=== PATIENT | male | born 1945 | race Caucasian/White ===

== ENCOUNTER 2016-09-04 13:46 | Inpatient (IN) | payer MEDICARE, OTHER ==
[~2016-09-04] VITALS: Ht 185.4 cm; Wt 61.4 kg
[~2016-09-04 13:46] MED LIST: ALPR0.5T6 PO; ATOR40TA59 PO; BACL10TA PO; BUSP15TA PO; CARV12.5 PO; DILT120C97 PO; DOCU100C5 PO; DULO60CA6 PO; LACT20SO PO; MIRT30TA3 PO; ONDA-35 PO; OXYB5TAB7 PO; OXYC10TA32 PO; OXYC5CAP3 PO; POLY17PO5 PO; RANI150C PO; RIVA20TA2 PO; SCOP1PAT TP; THIA100T8 PO
--- NOTE | 2016-09-04 15:05 | RAD ---
Portable chest, 09/04/2016: History: Weakness Comparison is made to a study from 05/24/2016. The patient is rotated to the left. The heart size and pulmonary vascularity are within normal limits. There are mild streaky left basilar parenchymal opacities similar to those seen on the previous exam. The right lung is clear. There is no evidence of pleural fluid. IMPRESSION: Persistent streaky left basilar opacities compatible with chronic or recurrent pneumonitis versus scarring.
[2016-09-04 15:10] LABS: BASO % 0 % (0-3); EOS % 0 % (0-3); HEMOGLOBIN 13.6 g/dL (13.0-17.5); LYMPH # 0.8 x10^3/uL (1.0-4.8); LYMPH % 6 % (24-48); MEAN CORPUSCULAR HEMOGLOBIN 34 pg (25-35); MEAN CORPUSCULAR HGB CONC 33 g/dL (31-37); MEAN CORPUSCULAR VOLUME 101 fL (79-100); MONO % 8 % (0-9); NEUT % 86 % (31-73); PLATELET COUNT 231 x10^3/uL (140-400); RED BLOOD COUNT 4.07 x10^6/uL (4.30-5.70); RED CELL DISTRIBUTION WIDTH 13.7 % (11.5-14.5); WHITE BLOOD COUNT 12.8 x10^3/uL (4.0-11.0)
[2016-09-04 15:19] LABS: CALCIUM 9.3 mg/dL (8.5-10.1); CREATININE 0.8 mg/dL (0.7-1.3); GFR 96.1; POTASSIUM 4.6 mmol/L (3.5-5.1)
[2016-09-04 15:26] LABS: ALBUMIN/GLOBULIN RATIO 0.7 (1.0-1.7); TOTAL BILIRUBIN 0.5 mg/dL (0.2-1.0); TOTAL PROTEIN 7.6 g/dL (6.4-8.2)
--- NOTE | 2016-09-04 15:55 | EKG ---
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
[2016-09-04] MEDS ORDERED: IPRATRPIUM/ALBUTEROL 0.5/2.5MG 3 ML NEBU. NEB ONE (16:00)
[2016-09-04 16:54] LABS: OVALOCYTES MOD; PLT ESTIMATE ADEQUATE (ADEQUATE); SCHISTOCYTES OCC
[2016-09-04 17:12] LABS: BILIRUBIN,URINE NEGATIVE (NEG); GLUCOSE,URINE NEGATIVE (NEG); NITRITE,URINE NEGATIVE (NEG); PH,URINE 7.5; PROTEIN,URINE NEGATIVE (NEG-TRACE)
[2016-09-04 17:23] LABS: BACTERIA,URINE 0 /HPF (0-FEW); RBC,URINE 0 /HPF (0-2); SQUAMOUS EPITHELIAL CELL,UR OCC /LPF; WBC,URINE OCC /HPF (0-4)
[2016-09-04 17:40] LABS: OBC FLU VALID
[2016-09-04 18:15] VITALS: BP 122/79
[2016-09-04 19:00] VITALS: BP 128/83
[2016-09-04] MEDS ORDERED: THIA100T22 PO (21:00)
[2016-09-04] MEDS ORDERED: GUAI600T6 PO (21:00)
[2016-09-04] MEDS ORDERED: ACETAMINOPHEN 325 MG TABLET. PO PRN (21:00)
[2016-09-04] MEDS ORDERED: LACTULOSE 20 GM/30 ML SOLUTION. PO PRN (21:00)
[2016-09-04] MEDS ORDERED: METO5TAB55 PO (21:00)
[2016-09-04] MEDS ORDERED: ALPRAZOLAM 0.5 MG TABLET PO PRN (21:00)
[2016-09-04] MEDS ORDERED: DOCUSATE SODIUM 100 MG CAPSULE PO PRN (21:00)
[2016-09-04] MEDS ORDERED: POLYETHYLENE GLYCOL 3350 17 GM PACKET. PO PRN (21:00)
[2016-09-04] MEDS ORDERED: IPRA3AMP NEB (21:00)
[2016-09-04] MEDS ORDERED: ACET325T9 PO (21:00)
[2016-09-04] MEDS ORDERED: FAMO20TA5 PO (21:00)
[2016-09-04] MEDS ORDERED: ANTI-COAG MONITOR BY PHARMACY. MC PRN (21:15)
[2016-09-04] MEDS ORDERED: OXYCODONE IR 5 MG TABLET. PO PRN (21:30)
[2016-09-04] MEDS ORDERED: FAMOTIDINE 20 MG TABLET. PO SCH (21:30)
[2016-09-04] MEDS ORDERED: ONDANSETRON ODT 4 MG TAB.RAPDIS PO PRN (21:30)
[2016-09-04] MEDS ORDERED: ATORVASTATIN CALCIUM 40 MG TABLET. PO SCH (21:30)
[2016-09-04] MEDS: FAMOTIDINE 20 MG TABLET. PO SCH (21:33)
[2016-09-04] MEDS: busPIRone 10 MG TABLET. PO SCH (21:33)
[2016-09-04] MEDS: OXYBUTYNIN CHLORIDE 5 MG TABLET PO SCH (21:33)
[2016-09-04] MEDS: GUAIFENESIN ER 600 MG TABLET.ER PO SCH (21:33)
[2016-09-04] MEDS: BACLOFEN 10 MG TABLET PO SCH (21:33)
[2016-09-04] MEDS: IPRATRPIUM/ALBUTEROL 0.5/2.5MG 3 ML NEBU. NEB SCH (22:09)
[2016-09-04 23:00] VITALS: BP 103/62
--- NOTE | 2016-09-04 23:01 | ED.ADGEN ---
Past Medical History Past Medical History: A-Fib, Anemia, Anxiety, CHF, COPD, CVA, GERD, High Cholesterol, Hypertension Additional Past Medical Histor: dysphagia, BPH Past Surgical History: Hip Replacement, Knee Replacement Additional Past Surgical Histo: Peg tube, L hip, R knee, Alcohol Use: None Drug Use: None Adult General Chief Complaint Chief Complaint: WEAKNESS/GENERALIZED HPI HPI Patient is a 70 year old man, history of atrial fibrillation, CVA with residual left-sided deficits, COPD, CHF, who presents to the emergency department with complaint of cough and shortness of breath. Patient has been treated at the [facility] nursing facility for pneumonia, has received 5 days of oral antibiotics. Patient states that he is feeling fine at this time, was feeling more short of breath previously. States he has a cough is productive of mucus, is noted to be hypoxic in the emergency department, oxygen saturation in the upper 80s, in the mid 90s on 2 L nasal cannula. Patient does not use oxygen at baseline. He denies any fevers or chills, any sick contacts or exposures, any chest pain, any weakness numbness or tingling, any injuries or other new complaints. Review of Systems Review of Systems Constitutional: Denies fever or chills. [] Eyes: Denies change in visual acuity. [] HENT: Denies nasal congestion or sore throat. [] Shortness of breath. Respiratory: Cough, productive of sputum. [] Cardiovascular: Denies chest pain or edema. [] GI: Denies abdominal pain, nausea, vomiting, bloody stools or diarrhea. [] : Denies dysuria. [] Musculoskeletal: Denies back pain or joint pain. [] Integument: Denies rash. [] Neurologic: Denies headache, focal weakness or sensory changes. [] Endocrine: Denies polyuria or polydipsia. [] Lymphatic: Denies swollen glands. [] Psychiatric: Denies depression or anxiety. [] Current Medications Current Medications Current Medications Medications (Trade) Dose Ordered Sig/Kayden Start Time Stop Time Status Last Admin Dose Admin Albuterol/ Ipratropium (Duoneb) 3 ml 1X ONCE 09/04/16 16:00 09/04/16 16:01 DC 09/04/16 16:22 3 ML Allergies Allergies Allergies Coded Allergies Type Severity Reaction Last Updated Verified morphine Allergy Intermediate 05/12/16 Yes I S O L A T I O N *CONTACT* Allergy Unknown 05/14/16 Yes Physical Exam Physical Exam Constitutional: Well developed, well nourished, no acute distress, non-toxic appearance. [] HENT: Normocephalic, atraumatic, bilateral external ears normal, oropharynx moist, no oral exudates, nose normal. [] Eyes: PERRLA, EOMI, conjunctiva normal, no discharge. [] Neck: Normal range of motion, no tenderness, supple, no stridor. [] Cardiovascular:Heart rate regular rhythm, no murmur [] Lungs & Thorax: Bilateral breath sounds clear to auscultation [] Abdomen: Bowel sounds normal, soft, no tenderness, no masses, no pulsatile masses. [] Skin: Warm, dry, no erythema, no rash. [] Back: No tenderness, no CVA tenderness. [] Extremities: No tenderness, no cyanosis, no clubbing, ROM intact, no edema. [] Neurologic: Alert and oriented X 3, normal motor function, normal sensory function, no focal deficits noted. [] Psychologic: Affect normal, judgement normal, mood normal. [] Current Patient Data Vital Signs Vital Signs Date Time Temp Pulse Resp B/P Pulse Ox O2 Delivery O2 Flow Rate FiO2 09/04/16 16:23 Nasal Cannula 2.0 09/04/16 16:19 60 135/74 97 09/04/16 14:17 98.6 12 98.6 Lab Values Laboratory Tests Test 09/04/16 14:10 White Blood Count 12.8x10^3/uL (4.0-11.0) H Red Blood Count 4.07x10^6/uL (4.30-5.70) L Hemoglobin 13.6g/dL (13.0-17.5) Hematocrit 41.0% (39.0-53.0) Mean Corpuscular Volume 101fL (79-100) H Mean Corpuscular Hemoglobin 34pg (25-35) Mean Corpuscular Hemoglobin Concent 33g/dL (31-37) Red Cell Distribution Width 13.7% (11.5-14.5) Platelet Count 231x10^3/uL (140-400) Neutrophils (%) (Auto) 86% (31-73) H Lymphocytes (%) (Auto) 6% (24-48) L Monocytes (%) (Auto) 8% (0-9) Eosinophils (%) (Auto) 0% (0-3) Basophils (%) (Auto) 0% (0-3) Neutrophils # (Auto) 10.9x10^3uL (1.8-7.7) H Lymphocytes # (Auto) 0.8x10^3/uL (1.0-4.8) L Monocytes # (Auto) 1.0x10^3/uL (0.0-1.1) Eosinophils # (Auto) 0.0x10^3/uL (0.0-0.7) Basophils # (Auto) 0.0x10^3/uL (0.0-0.2) Segmented Neutrophils % 89% (35-66) H Lymphocytes % 5% (24-48) L Atypical Lymphocytes % (Manual) 1% (0-0) H Monocytes % 5% (0-10) Platelet Estimate Adequate (ADEQUATE) Ovalocytes Mod Schistocytes Occ Sodium Level 143mmol/L (136-145) Potassium Level 4.6mmol/L (3.5-5.1) Chloride Level 103mmol/L (98-107) Carbon Dioxide Level 32mmol/L (21-32) Anion Gap 8 (6-14) Blood Urea Nitrogen 23mg/dL (8-26) Creatinine 0.8mg/dL (0.7-1.3) Estimated GFR (Cockcroft-Gault) 96.1 BUN/Creatinine Ratio 29 (6-20) H Glucose Level 93mg/dL (70-99) Lactic Acid Level 1.4mmol/L (0.4-2.0) Calcium Level 9.3mg/dL (8.5-10.1) Total Bilirubin 0.5mg/dL (0.2-1.0) Aspartate Amino Transferase (AST) 70U/L (15-37) H Alanine Aminotransferase (ALT) 97U/L (16-63) H Alkaline Phosphatase 71U/L (46-116) Troponin I Quantitative < 0.017ng/mL (0.000-0.055) RW-Sts-H-Type Natriuretic Peptide 226pg/mL (0-124) H Total Protein 7.6g/dL (6.4-8.2) Albumin 3.0g/dL (3.4-5.0) L Albumin/Globulin Ratio 0.7 (1.0-1.7) L Laboratory Tests 09/04/16 14:10 Laboratory Tests 09/04/16 14:10 EKG EKG EC: Sinus rhythm, heart rate 59 bpm, left axis deviation, QTC of 410, FL of 100, QRS of 86, no ST elevations or depressions, abnormal ECG as stated, does not meet STEMI criteria. As interpreted by me. Radiology/Procedures Radiology/Procedures [] [facility] [address] [place] [address] IMAGING REPORT Signed PATIENT: OLI MICHAEL ACCOUNT: [id number] : 1945 LOCATION: ER AGE: 70 SEX: M EXAM STATUS: PRE ER ORD. PHYSICIAN: JUAN A PAULINO DO REASON: Weakness PROCEDURE: PORTABLE CHEST 1V Portable chest, 09/04/2016: History: Weakness Comparison is made to a study from 05/24/2016. The patient is rotated to the left. The heart size and pulmonary vascularity are within normal limits. There are mild streaky left basilar parenchymal opacities similar to those seen on the previous exam. The right lung is clear. There is no evidence of pleural fluid. IMPRESSION: Persistent streaky left basilar opacities compatible with chronic or recurrent pneumonitis versus scarring. DICTATED and SIGNED BY: CIARA LINARES MD DATE: 09/04/16 1500 CC: IONA GARCIA; JUAN A PAULINO DO ~ Course & Med Decision Making Course & Med Decision Making Pertinent Labs and Imaging studies reviewed. (See chart for details) Patient with hypoxia, cough, leukocytosis, noted to have infiltrates in the left lung base, will treat for healthcare acquired pneumonia, presumed failure of outpatient antibiotic coverage. Patient resting comfortably, on 2 L nasal cannula. Antibiotic initiated in the ED without issue. Flu swab was negative. Findings as above discussed with Dr. Dyer, on-call for the patient's primary care provider, patient accepted to his service as a full admission to the medical telemetry floor with plan as above, bridge orders entered as stated. Dragon Disclaimer Dragon Disclaimer This electronic medical record was generated, in whole or in part, using a voice recognition dictation system. Departure Impression: Primary Impression: HCAP (healthcare-associated pneumonia) Additional Impression: Cough Disposition: 09 ADMITTED INPATIENT Admitting Physician: Mary Alice Dyer Problem Qualifiers JUAN A PAULINO DO Sep 04, 2016 23:01
[2016-09-04] MEDS ORDERED: VANCOMYCIN 1.5 GM in IV NORMAL SALINE 500ML BAG 500 ML IV ONE (23:15)
[2016-09-04] MEDS ORDERED: ONDANSETRON PF 4 MG/2 ML VIAL. IV PRN (23:15)
[2016-09-04] MEDS: VANCOMYCIN PER PHARMACY MC PRN (23:21)
[2016-09-05] MEDS: PIPERACILLIN/TAZOBACTAM 4.5 GM in IV NORMAL SALINE 100ML 100 ML IV SCH ×4 (00:30→18:10)
--- NOTE | 2016-09-05 01:45 | ACF ---
Admission Forms Criteria PNEUMONIA, COMMUNITY ACQUIRED Clinical Indications for Admission to Inpatient Care ( Place 'X' for any and all applicable criteria): Admission is indicated for ANY ONE of the following (1)(2)(3): [ ]I. Hypoxemia indicated by ANY ONE of the following: [ ]a) Oxygen saturation less than 90% while breathing room air [ ]b) PO2 less than 60 mm Hg (8.0 kPa) while breathing room air [ ]c) Chronic lung disease with significant deterioration from baseline oxygenation [ ]II. Appropriate diagnostic testing and treatment unavailable in outpatient or recovery facility (eg,testing or infection control measures unavailable(10) [ ]III. Moderate-risk or high-risk category patients (Pneumonia Severity Index (PSI) class IV or V, or CURB-65 score of 3 or greater). [ ]IV. Outpatient treatment failure as indicated by ANY ONE of the following(9) : [ ]a) Failure to respond to antibiotic (eg, resistant organism) [ ]b) Clinically significant adverse effects from medication (eg, vomiting) [ ]c) Complications of pneumonia (eg, empyema, bacteremia) [ ]d) Significant worsening of comorbid cond necessitating inpatient care (eg, chronic heart failure) [X]V. Intermediate-risk category patients (eg, PSI class III or CURB-65 score 2) who do not improve with initial therapy and observation. [ ]. Immunocompromised patients (eg, AIDS, chronic steroid use) at moderate or high risk based on clinical evaluation. [ ]VII. Complicated pleural effusions (eg, exudative, loculated) [ ]VIII.Hemodynamic instability [ ] IX. Altered mental status that is severe or persistent. [ ]X. Dehydration that is severe or persistent. [ ]XI. Bacteremia [ ]XII. Respiratory finding (eg. tachypnea) that do not respond to outpatient or observation care treatment Extended stay beyond goal length of stay may be needed for (20) [ ]a) Unclear diagnosis [ ]b) Pleural disease [ ]c) Severe pneumonia or treatment failure (25 [ ]d) Respiratory failure (anticipate invasive or noninvasive ventilatory support) [ ]e) Abnormal serum electrolytes (serum Na concentration less than 135 mEq/L (mmol/L) (32)(33) [ ]f) Clinically significant comorbid illness (eg, heart failure, atrial fibrillation with rapid heart rate, alcohol withdrawal, renal insufficiency)(34)(35) [ ]g) Comorbid acute exacerbation of COPD(36) [ ]h) Concomitant diagnosis of malignancy that may be associated with malnutrition, immunologic impairment, or bronchial obstruction. [ ]i) Concomitant altered mental status [ ]j) Culture-identified Gram-negative or antibiotic-resistant organism (eg, Pseudomonas, methicillin-resistant Staphylococcus aureus)(30) [ ]k) Healthcare-associated pneumonia The original [facility] content created by [employer] [facility] [email or web address] has been revised. The portions of the content which have been revised are identified through the use of italic text or in bold, and [facility] has neither reviewed nor approved the modified material. All other unmodified content is copyright [facility]. Please see references footnoted in the original [facility] [email or web address] edition 2016 Admission Criteria Met?: Yes LUCERO HENDERSON Sep 05, 2016 01:45
[2016-09-05 02:38] VITALS: BP 120/62
[2016-09-05 06:51] LABS: BASO % 0 % (0-3); EOS % 0 % (0-3); HEMATOCRIT 43.3 % (39.0-53.0); HEMOGLOBIN 13.9 g/dL (13.0-17.5); LYMPH % 7 % (24-48); MEAN CORPUSCULAR HEMOGLOBIN 33 pg (25-35); MEAN CORPUSCULAR HGB CONC 32 g/dL (31-37); MEAN CORPUSCULAR VOLUME 102 fL (79-100); MONO % 7 % (0-9); NEUT % 85 % (31-73); PLATELET COUNT 167 x10^3/uL (140-400); RED BLOOD COUNT 4.24 x10^6/uL (4.30-5.70); RED CELL DISTRIBUTION WIDTH 14.1 % (11.5-14.5); WHITE BLOOD COUNT 13.5 x10^3/uL (4.0-11.0)
[2016-09-05 07:06] LABS: ALBUMIN/GLOBULIN RATIO 0.8 (1.0-1.7); CALCIUM 9.3 mg/dL (8.5-10.1); CREATININE 0.8 mg/dL (0.7-1.3); GFR 96.1; POTASSIUM 3.8 mmol/L (3.5-5.1); TOTAL BILIRUBIN 0.6 mg/dL (0.2-1.0); TOTAL PROTEIN 6.9 g/dL (6.4-8.2)
[2016-09-05] MEDS ORDERED: METOCLOPRAMIDE 5 MG TABLET PO SCH (07:30)
[2016-09-05] MEDS ORDERED: DEXTROSE 50% 25 GM / 50ML DISP.SYRIN. IV ONE ×2 (07:52→08:00)
[2016-09-05] MEDS ORDERED: CARVEDILOL 12.5 MG TABLET PO SCH (08:00)
[2016-09-05] MEDS ORDERED: IPRATRPIUM/ALBUTEROL 0.5/2.5MG 3 ML NEBU. NEB SCH (08:00)
[2016-09-05 08:36] VITALS: BP 95/60
[2016-09-05] MEDS: IPRATRPIUM/ALBUTEROL 0.5/2.5MG 3 ML NEBU. NEB SCH ×4 (08:49→19:34)
[2016-09-05] MEDS: BACLOFEN 10 MG TABLET PO SCH (08:55)
[2016-09-05] MEDS: OXYBUTYNIN CHLORIDE 5 MG TABLET PO SCH (08:56)
[2016-09-05] MEDS: DULOXETINE HCL 30 MG CAPSULE.DR. PO SCH (08:56)
[2016-09-05] MEDS: FAMOTIDINE 20 MG TABLET. PO SCH (08:56)
[2016-09-05] MEDS: busPIRone 10 MG TABLET. PO SCH (08:56)
[2016-09-05] MEDS: GUAIFENESIN ER 600 MG TABLET.ER PO SCH (08:56)
[2016-09-05] MEDS: methylPREDNISolone SOD SUCC PF 40 MG/ML VIAL. IV SCH ×2 (08:57→22:13)
[2016-09-05] MEDS: SCOPOLAMINE 1.5MG PATCH. TD SCH (08:57)
--- NOTE | 2016-09-05 08:59 | PDOC1 ---
HISTORY AND PHYSICAL Chief Complaint Chief Complaint This 70 year old male has been admitted with a chief complaint of shortness of breath and cough. He is a resident at [facility]. He received out patient treatment for pneumonia with Zjyotik, Lenardtin and levaquin. He presented to the ED with ongoing cough productive of mucus. He was hypoxic in the ED with RA sat upper 80s that improved with oxygen 2L to mid 90s. He denies fever or chills. His CXR revealed ongoing L basilar pneumonia. His WBC 12.8. He is admitted for further treatment HCFA pneumonia out patient treatment failure. 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 Medications Medications reviewed and reconciled Allergy Allergies Coded Allergies Type Severity Reaction Last Updated Verified morphine Allergy Intermediate 05/12/16 Yes I S O L A T I O N *CONTACT* Allergy Unknown 05/14/16 Yes Physical Exam Physical Exam General appearance - alert, chronically ill appearing, and in no distress Mental Status - alert, oriented to person, place, and time, affect appropriate to mood Head - normal Chest - clear to auscultation, no wheezes, rales or rhonchi, symmetric air entry Heart - S1 and S2 normal Abdomen - soft, nontender, nondistended, GT present. BS + Neurological - no acute focal neurological deficits noted, bilateral contractures upper extremities/hands and bilateral foot drop. Musculoskeletal - no muscular tenderness noted Extremities - no pedal edema Skin - warm and dry VTE Prophylaxis Ordered VTE Prophylaxis Devices: Yes VTE Pharmacological Prophylaxi: Yes (xarelto) Assessment Labs Laboratory Tests Test 09/04/16 14:10 09/04/16 17:00 09/05/16 06:15 09/05/16 07:58 White Blood Count 12.8x10^3/uL (4.0-11.0) 13.5x10^3/uL (4.0-11.0) Red Blood Count 4.07x10^6/uL (4.30-5.70) 4.24x10^6/uL (4.30-5.70) Hemoglobin 13.6g/dL (13.0-17.5) 13.9g/dL (13.0-17.5) Hematocrit 41.0% (39.0-53.0) 43.3% (39.0-53.0) Mean Corpuscular Volume 101fL (79-100) 102fL (79-100) Mean Corpuscular Hemoglobin 34pg (25-35) 33pg (25-35) Mean Corpuscular Hemoglobin Concent 33g/dL (31-37) 32g/dL (31-37) Red Cell Distribution Width 13.7% (11.5-14.5) 14.1% (11.5-14.5) Platelet Count 231x10^3/uL (140-400) 167x10^3/uL (140-400) Neutrophils (%) (Auto) 86% (31-73) 85% (31-73) Lymphocytes (%) (Auto) 6% (24-48) 7% (24-48) Monocytes (%) (Auto) 8% (0-9) 7% (0-9) Eosinophils (%) (Auto) 0% (0-3) 0% (0-3) Basophils (%) (Auto) 0% (0-3) 0% (0-3) Neutrophils # (Auto) 10.9x10^3uL (1.8-7.7) 11.5x10^3uL (1.8-7.7) Lymphocytes # (Auto) 0.8x10^3/uL (1.0-4.8) 1.0x10^3/uL (1.0-4.8) Monocytes # (Auto) 1.0x10^3/uL (0.0-1.1) 1.0x10^3/uL (0.0-1.1) Eosinophils # (Auto) 0.0x10^3/uL (0.0-0.7) 0.1x10^3/uL (0.0-0.7) Basophils # (Auto) 0.0x10^3/uL (0.0-0.2) 0.0x10^3/uL (0.0-0.2) Segmented Neutrophils % 89% (35-66) Lymphocytes % 5% (24-48) Atypical Lymphocytes % (Manual) 1% (0-0) Monocytes % 5% (0-10) Platelet Estimate Adequate (ADEQUATE) Ovalocytes Mod Schistocytes Occ Sodium Level 143mmol/L (136-145) 143mmol/L (136-145) Potassium Level 4.6mmol/L (3.5-5.1) 3.8mmol/L (3.5-5.1) Chloride Level 103mmol/L (98-107) 104mmol/L (98-107) Carbon Dioxide Level 32mmol/L (21-32) 30mmol/L (21-32) Anion Gap 8 (6-14) 9 (6-14) Blood Urea Nitrogen 23mg/dL (8-26) 22mg/dL (8-26) Creatinine 0.8mg/dL (0.7-1.3) 0.8mg/dL (0.7-1.3) Estimated GFR (Cockcroft-Gault) 96.1 96.1 BUN/Creatinine Ratio 29 (6-20) 28 (6-20) Glucose Level 93mg/dL (70-99) 63mg/dL (70-99) Lactic Acid Level 1.4mmol/L (0.4-2.0) Calcium Level 9.3mg/dL (8.5-10.1) 9.3mg/dL (8.5-10.1) Total Bilirubin 0.5mg/dL (0.2-1.0) 0.6mg/dL (0.2-1.0) Aspartate Amino Transf (AST/SGOT) 70U/L (15-37) 59U/L (15-37) Alanine Aminotransferase (ALT/SGPT) 97U/L (16-63) 88U/L (16-63) Alkaline Phosphatase 71U/L (46-116) 77U/L (46-116) Troponin I Quantitative < 0.017ng/mL (0.000-0.055) UN-Qgf-W-Type Natriuretic Peptide 226pg/mL (0-124) Total Protein 7.6g/dL (6.4-8.2) 6.9g/dL (6.4-8.2) Albumin 3.0g/dL (3.4-5.0) 3.0g/dL (3.4-5.0) Albumin/Globulin Ratio 0.7 (1.0-1.7) 0.8 (1.0-1.7) Urine Collection Type Unknown Urine Color Yellow Urine Clarity Clear Urine pH 7.5 Urine Specific [place] 1.015 Urine Protein Negativemg/dL (NEG-TRACE) Urine Glucose (UA) Negativemg/dL (NEG) Urine Ketones (Stick) Negativemg/dL (NEG) Urine Blood Negative (NEG) Urine Nitrite Negative (NEG) Urine Bilirubin Negative (NEG) Urine Urobilinogen Dipstick 1.0mg/dL (0.2 mg/dL) Urine Leukocyte Esterase Negative (NEG) Urine RBC 0/HPF (0-2) Urine WBC Occ/HPF (0-4) Urine Squamous Epithelial Cells Occ/LPF Urine Transitional Epithelial Cells Occ/LPF Urine Bacteria 0/HPF (0-FEW) Influenza Type A Antigen Negative (NEGATIVE) Influenza Type B Antigen Negative (NEGATIVE) Glucose (Fingerstick) 99mg/dL (70-99) Laboratory Tests Test 09/04/16 14:10 09/04/16 17:00 09/05/16 06:15 09/05/16 07:58 White Blood Count 12.8x10^3/uL (4.0-11.0) 13.5x10^3/uL (4.0-11.0) Red Blood Count 4.07x10^6/uL (4.30-5.70) 4.24x10^6/uL (4.30-5.70) Hemoglobin 13.6g/dL (13.0-17.5) 13.9g/dL (13.0-17.5) Hematocrit 41.0% (39.0-53.0) 43.3% (39.0-53.0) Mean Corpuscular Volume 101fL (79-100) 102fL (79-100) Mean Corpuscular Hemoglobin 34pg (25-35) 33pg (25-35) Mean Corpuscular Hemoglobin Concent 33g/dL (31-37) 32g/dL (31-37) Red Cell Distribution Width 13.7% (11.5-14.5) 14.1% (11.5-14.5) Platelet Count 231x10^3/uL (140-400) 167x10^3/uL (140-400) Neutrophils (%) (Auto) 86% (31-73) 85% (31-73) Lymphocytes (%) (Auto) 6% (24-48) 7% (24-48) Monocytes (%) (Auto) 8% (0-9) 7% (0-9) Eosinophils (%) (Auto) 0% (0-3) 0% (0-3) Basophils (%) (Auto) 0% (0-3) 0% (0-3) Neutrophils # (Auto) 10.9x10^3uL (1.8-7.7) 11.5x10^3uL (1.8-7.7) Lymphocytes # (Auto) 0.8x10^3/uL (1.0-4.8) 1.0x10^3/uL (1.0-4.8) Monocytes # (Auto) 1.0x10^3/uL (0.0-1.1) 1.0x10^3/uL (0.0-1.1) Eosinophils # (Auto) 0.0x10^3/uL (0.0-0.7) 0.1x10^3/uL (0.0-0.7) Basophils # (Auto) 0.0x10^3/uL (0.0-0.2) 0.0x10^3/uL (0.0-0.2) Segmented Neutrophils % 89% (35-66) Lymphocytes % 5% (24-48) Atypical Lymphocytes % (Manual) 1% (0-0) Monocytes % 5% (0-10) Platelet Estimate Adequate (ADEQUATE) Ovalocytes Mod Schistocytes Occ Sodium Level 143mmol/L (136-145) 143mmol/L (136-145) Potassium Level 4.6mmol/L (3.5-5.1) 3.8mmol/L (3.5-5.1) Chloride Level 103mmol/L (98-107) 104mmol/L (98-107) Carbon Dioxide Level 32mmol/L (21-32) 30mmol/L (21-32) Anion Gap 8 (6-14) 9 (6-14) Blood Urea Nitrogen 23mg/dL (8-26) 22mg/dL (8-26) Creatinine 0.8mg/dL (0.7-1.3) 0.8mg/dL (0.7-1.3) Estimated GFR (Cockcroft-Gault) 96.1 96.1 BUN/Creatinine Ratio 29 (6-20) 28 (6-20) Glucose Level 93mg/dL (70-99) 63mg/dL (70-99) Lactic Acid Level 1.4mmol/L (0.4-2.0) Calcium Level 9.3mg/dL (8.5-10.1) 9.3mg/dL (8.5-10.1) Total Bilirubin 0.5mg/dL (0.2-1.0) 0.6mg/dL (0.2-1.0) Aspartate Amino Transf (AST/SGOT) 70U/L (15-37) 59U/L (15-37) Alanine Aminotransferase (ALT/SGPT) 97U/L (16-63) 88U/L (16-63) Alkaline Phosphatase 71U/L (46-116) 77U/L (46-116) Troponin I Quantitative < 0.017ng/mL (0.000-0.055) II-Khi-J-Type Natriuretic Peptide 226pg/mL (0-124) Total Protein 7.6g/dL (6.4-8.2) 6.9g/dL (6.4-8.2) Albumin 3.0g/dL (3.4-5.0) 3.0g/dL (3.4-5.0) Albumin/Globulin Ratio 0.7 (1.0-1.7) 0.8 (1.0-1.7) Urine Collection Type Unknown Urine Color Yellow Urine Clarity Clear Urine pH 7.5 Urine Specific [place] 1.015 Urine Protein Negativemg/dL (NEG-TRACE) Urine Glucose (UA) Negativemg/dL (NEG) Urine Ketones (Stick) Negativemg/dL (NEG) Urine Blood Negative (NEG) Urine Nitrite Negative (NEG) Urine Bilirubin Negative (NEG) Urine Urobilinogen Dipstick 1.0mg/dL (0.2 mg/dL) Urine Leukocyte Esterase Negative (NEG) Urine RBC 0/HPF (0-2) Urine WBC Occ/HPF (0-4) Urine Squamous Epithelial Cells Occ/LPF Urine Transitional Epithelial Cells Occ/LPF Urine Bacteria 0/HPF (0-FEW) Influenza Type A Antigen Negative (NEGATIVE) Influenza Type B Antigen Negative (NEGATIVE) Glucose (Fingerstick) 99mg/dL (70-99) Plan Plan IMPRESSION: 1. acute hypoxic respiratory failure 2. HCFA pneumonia grm neg/gram positive w/o sepsis outpatient treatment failure 3. EXCOPD 4. HTN 5. AF chronic xarelto 6. h/o R thalamic infarct with L sided hemiplegia 7. GERD 8. dysphagia with PEG 9. chronic moderate PCL malnutrition 10. mildly elevated LFTs 11. major depression recurrent mild PLAN: pneumonia/EXCOPD zosyn/vanc pulmonary consult ID consult supplemental O2 duoneb/mucinex Solu Med 40mg IV q12h HTN continue home meds low BP begin NS 100cc/hr malnutrition NPO ETF Fibersource 1.2 6 cans per day H20 200cc TID speech therapy to evaluate-pureed diet/honey thick liquids on [facility] order, pt reports not taking anything by mouth AF med tele xarelto Cardizem CD 120mg changed to Cardizem 30mg q 6 hr depression cymbalta 60mg changed to 30mg bid (d/w pharmacy) LFTs Admit AST 70 09/05 59 ALT 97 88 AP 71 77 DVT/GI prophylaxis SCD/BALA xarelto Pepcid For more details regarding further plans, please refer to the orders. SWETHA MACHUCA APRN Sep 05, 2016 08:59
[2016-09-05] MEDS ORDERED: THIAMINE MONONITRATE 100 MG PO SCH (09:00)
[2016-09-05] MEDS ORDERED: THIAMINE 100 MG TABLET. PO SCH (09:00)
[2016-09-05] MEDS ORDERED: DILTIAZEM HCL 120 MG CAP.ER.24H PO SCH (09:00)
[2016-09-05] MEDS ORDERED: ACETAMINOPHEN 650 MG/20.3 ML SOLUTION. PEG PRN (09:38)
[2016-09-05] MEDS ORDERED: LACTULOSE 20 GM/30 ML SOLUTION. PEG PRN (09:44)
[2016-09-05] MEDS ORDERED: ONDANSETRON ODT 4 MG TAB.RAPDIS PEG PRN (09:46)
[2016-09-05] MEDS ORDERED: POLYETHYLENE GLYCOL 3350 17 GM PACKET. PEG PRN (09:47)
[2016-09-05] MEDS ORDERED: DOCUSATE 100 MG/10 ML SOLUTION. PEG PRN (09:50)
[2016-09-05] MEDS: DILTIAZEM HCL 30 MG TABLET PEG SCH ×3 (10:00→18:10)
[2016-09-05] MEDS: POLYETHYLENE GLYCOL 3350 17 GM PACKET. PEG SCH (10:35)
[2016-09-05] MEDS: OXYBUTYNIN CHLORIDE 5 MG TABLET PEG SCH ×2 (10:35→22:10)
[2016-09-05] MEDS: IV NORMAL SALINE 1000ML BAG 1,000 ML IV SCH (10:36)
[2016-09-05] MEDS: OXYCODONE IR 5 MG TABLET. PEG SCH (10:41)
--- NOTE | 2016-09-05 11:01 | PDOC ---
Provider Note Provider Note dictated ALEXANDER BOWIE MD Sep 05, 2016 11:01
[2016-09-05] MEDS: METOCLOPRAMIDE HCL 10 MG/10 ML SOLUTION. PEG SCH ×2 (11:30→16:18)
[2016-09-05] MEDS: VANCOMYCIN 1 GM in IV NORMAL SALINE 250ML 250 ML IV SCH ×2 (11:30→23:05)
[2016-09-05 11:32] VITALS: BP 98/50
[2016-09-05] MEDS: HEPARIN PF for SUB-Q USE 5,000 UNIT/0.5 ML VIAL. SQ SCH ×2 (11:34→22:19)
[2016-09-05] MEDS: VANCOMYCIN PER PHARMACY MC PRN (11:37)
--- NOTE | 2016-09-05 11:43 | CONS ---
DATE OF CONSULTATION: ATTENDING PHYSICIAN: Dr. Goldstein. REASON FOR CONSULTATION: Possible pneumonia. HISTORY OF PRESENT ILLNESS: The patient is a 70-year-old male with history of atrial fibrillation, CVA with residual left-sided weakness. The patient has history of COPD and CHF. He had pneumonia, treated in May of last year. He presented to the Emergency Department with complaining of cough and some shortness of breath. He was treated with oral antibiotics at the long-term for recent suspected pneumonia. He was noted to be hypoxic and saturations were in the upper 80s and later in the mid-90s on 2 liters nasal cannula. Normally does not use oxygen. I have reviewed the patient's chest x-ray and there is left basilar infiltrate versus atelectasis. His CT from May last year was reviewed and it shows some atelectasis and scarring in the left lower lobe. He was started on antibiotics. I have been asked to see him for further evaluation. PAST MEDICAL HISTORY: Significant for history of atrial fibrillation, history of anxiety, history of CHF, COPD, CVA, GERD, history of dysphagia and BPH. PAST SURGICAL HISTORY: Hip replacement, PEG tube placement and left hip and right knee surgery. ALLERGIES: MORPHINE. MEDICATIONS: Reviewed as listed in the MRAD. REVIEW OF SYSTEMS: Unable to obtain from the patient. SOCIAL HISTORY: He lives at long-term. PHYSICAL EXAMINATION: VITAL SIGNS: Blood pressure 95/60, pulse ox 97% on 2 liters, afebrile. HEENT: Sclerae nonicteric. NECK: Supple. LUNGS: Diminished breath sounds. CARDIOVASCULAR: Regular rate and rhythm. ABDOMEN: Soft, nontender. PEG in place. EXTREMITIES: With contraction on the left upper extremity and weakness in the left upper and left lower. LABORATORY DATA: Reviewed. Influenza screen is negative. White cell count 13.5, hemoglobin 13.9 and platelets are 167. IMPRESSION: 1. Acute hypoxic respiratory failure secondary to suspected left lower lobe healthcare-associated pneumonia. He has previously abnormal CT chest with some scarring in the left lower lobe and I will obtain a noncontrast CT chest to better assess for any new infiltrates. 2. 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 3. History of dysphagia, status post PEG tube placement. 4. Leukocytosis secondary to pneumonia. 5. Influenza negative. RECOMMENDATIONS: 1. Keep head of the bed elevated at 30 degrees and watch for aspiration. 2. Continue tube feeds. 3. Obtain noncontrast CT chest to better assess for left lower lobe pneumonia versus scarring. 4. Continue with present antibiotics for healthcare-associated pneumonia. 5. Bronchodilators p.r.n. 6. We will follow. 7. Taper steroids gradually. 8. We will follow along with you. ALEXANDER BWOIE MD DR: DAVID/aishwarya JOB#: [id number] / [id number]
[2016-09-05] MEDS: GUAIFENESIN DM 200MG/20MG 10 ML SYRUP. PEG SCH ×2 (12:46→18:10)
[2016-09-05] MEDS: BACLOFEN 10 MG TABLET PEG SCH ×2 (13:45→22:10)
[2016-09-05] MEDS: busPIRone 10 MG TABLET. PEG SCH ×2 (13:45→22:10)
--- NOTE | 2016-09-05 13:52 | RAD ---
CT of the chest without contrast, 09/05/2016: History: Left lower lobe pneumonia Noncontrast scans were obtained as requested and compared to a study from 05/12/2016. Moderate infiltrate has developed in the left lower lobe with air bronchograms. There is a lesser degree of infiltrate in the posterior aspect of the left upper lobe. There is a suggestion of a trace amount of left-sided pleural fluid. There is only minimal atelectasis or scarring in the posterior costophrenic angle on the right. The right lung is otherwise clear. There is moderate calcific plaquing of the thoracic aorta and the coronary arteries. The ascending aorta is mildly dilated measuring 4.3 cm in width. No mediastinal adenopathy is seen. A gastrostomy tube extends into the body of the stomach. There is a moderate thoracic scoliosis with moderate multilevel degenerative change. The upper end of an internal fixation device is noted in the lumbar spine. IMPRESSION: 1. Moderate infiltrate in the left lower lobe and posterior aspect of the left upper lobe compatible with pneumonia. 2. Aortic atherosclerosis with mild dilatation of the ascending aorta. 3. Moderate coronary artery calcifications. PQRS Compliance Statement: One or more of the following individualized dose reduction techniques were utilized for this examination: 1. Automated exposure control 2. Adjustment of the mA and/or kV according to patient size 3. Use of iterative reconstruction technique
--- NOTE | 2016-09-05 14:52 | PDOC ---
Infectious Disease Note Vital Sign Vital Signs Vital Signs Date Time Temp Pulse Resp B/P Pulse Ox O2 Delivery O2 Flow Rate FiO2 09/05/16 12:30 18 94 Nasal Cannula 2.0 09/05/16 12:00 98 98/50 09/05/16 08:36 98.0 98.0 Labs Lab Laboratory Tests Test 09/04/16 17:00 09/05/16 06:15 09/05/16 07:58 Urine Collection Type Unknown Urine Color Yellow Urine Clarity Clear Urine pH 7.5 Urine Specific [place] 1.015 Urine Protein Negativemg/dL (NEG-TRACE) Urine Glucose (UA) Negativemg/dL (NEG) Urine Ketones (Stick) Negativemg/dL (NEG) Urine Blood Negative (NEG) Urine Nitrite Negative (NEG) Urine Bilirubin Negative (NEG) Urine Urobilinogen Dipstick 1.0mg/dL (0.2 mg/dL) Urine Leukocyte Esterase Negative (NEG) Urine RBC 0/HPF (0-2) Urine WBC Occ/HPF (0-4) Urine Squamous Epithelial Cells Occ/LPF Urine Transitional Epithelial Cells Occ/LPF Urine Bacteria 0/HPF (0-FEW) Influenza Type A Antigen Negative (NEGATIVE) Influenza Type B Antigen Negative (NEGATIVE) White Blood Count 13.5x10^3/uL (4.0-11.0) Red Blood Count 4.24x10^6/uL (4.30-5.70) Hemoglobin 13.9g/dL (13.0-17.5) Hematocrit 43.3% (39.0-53.0) Mean Corpuscular Volume 102fL (79-100) Mean Corpuscular Hemoglobin 33pg (25-35) Mean Corpuscular Hemoglobin Concent 32g/dL (31-37) Red Cell Distribution Width 14.1% (11.5-14.5) Platelet Count 167x10^3/uL (140-400) Neutrophils (%) (Auto) 85% (31-73) Lymphocytes (%) (Auto) 7% (24-48) Monocytes (%) (Auto) 7% (0-9) Eosinophils (%) (Auto) 0% (0-3) Basophils (%) (Auto) 0% (0-3) Neutrophils # (Auto) 11.5x10^3uL (1.8-7.7) Lymphocytes # (Auto) 1.0x10^3/uL (1.0-4.8) Monocytes # (Auto) 1.0x10^3/uL (0.0-1.1) Eosinophils # (Auto) 0.1x10^3/uL (0.0-0.7) Basophils # (Auto) 0.0x10^3/uL (0.0-0.2) Sodium Level 143mmol/L (136-145) Potassium Level 3.8mmol/L (3.5-5.1) Chloride Level 104mmol/L (98-107) Carbon Dioxide Level 30mmol/L (21-32) Anion Gap 9 (6-14) Blood Urea Nitrogen 22mg/dL (8-26) Creatinine 0.8mg/dL (0.7-1.3) Estimated GFR (Cockcroft-Gault) 96.1 BUN/Creatinine Ratio 28 (6-20) Glucose Level 63mg/dL (70-99) Calcium Level 9.3mg/dL (8.5-10.1) Total Bilirubin 0.6mg/dL (0.2-1.0) Aspartate Amino Transf (AST/SGOT) 59U/L (15-37) Alanine Aminotransferase (ALT/SGPT) 88U/L (16-63) Alkaline Phosphatase 77U/L (46-116) Total Protein 6.9g/dL (6.4-8.2) Albumin 3.0g/dL (3.4-5.0) Albumin/Globulin Ratio 0.8 (1.0-1.7) Glucose (Fingerstick) 99mg/dL (70-99) Objective Assessment HCAP Leukocytosis Dysphagia COPD A-fib h/o CVA Plan Plan of Care Continue vanc and Zosyn -Recent Levaquin, vantin & azithromycin Monitor labs Sputum culture Supportive care Thank you #[id number] Patient seen and examined. Chart reviewed. Case discussed with FINANCIAL PLANNING ASSISTANT. Agree with above plan SARA MAYA APRN Sep 05, 2016 14:52 PAULIE FELIX MD Sep 05, 2016 15:45
[2016-09-05 15:07] VITALS: BP 113/75
[2016-09-05] MEDS: CARVEDILOL 12.5 MG TABLET PEG SCH (16:18)
[2016-09-05] MEDS ORDERED: RIVAROXABAN 10 MG TABLET. PO SCH ×2 (17:00)
[2016-09-05 20:06] VITALS: BP 94/57
[2016-09-05] MEDS: FAMOTIDINE 20 MG TABLET. PEG SCH (22:09)
[2016-09-05] MEDS: MIRTAZAPINE 15 MG TABLET PEG SCH (22:09)
[2016-09-05] MEDS: ATORVASTATIN CALCIUM 40 MG TABLET. PEG SCH (22:09)
[2016-09-05 23:02] VITALS: BP 102/65
[2016-09-06] MEDS: PIPERACILLIN/TAZOBACTAM 4.5 GM in IV NORMAL SALINE 100ML 100 ML IV SCH ×4 (00:38→18:26)
[2016-09-06] MEDS: GUAIFENESIN DM 200MG/20MG 10 ML SYRUP. PEG SCH ×4 (00:38→18:26)
--- NOTE | 2016-09-06 00:57 | CONS ---
DATE OF CONSULTATION: REFERRING PHYSICIAN: Dr. Dyer. REASON FOR CONSULTATION: Pneumonia. HISTORY OF PRESENT ILLNESS: This patient is a 70-year-old male, a [facility] resident with a history of chronic obstructive pulmonary disease and cerebrovascular accident with left-sided deficits and dysphagia. He was sent to the ER for worsening cough and shortness of air. While at the [facility], he developed a pneumonia and was being treated with azithromycin, levofloxacin and Vantin for the past few days. On arrival, he was hypoxic, requiring oxygen supplementation of 2 liters of nasal cannula. He had elevated white blood cell count of 12,800 and a lactic acid of 1.4. Chest x-ray showed streaky left basilar opacities with chronic or recurrent pneumonitis versus scarring. A followup chest CT showed moderate infiltrate in the left lower lobe and posterior aspect of the left upper lobe. The patient had been on a pureed diet with thickened liquids prior to hospitalization; however, he is now, n.p.o. after failing a swallow study. PAST MEDICAL HISTORY: Cerebrovascular accident with left-sided hemiplegia. Dysphagia. Atrial fibrillation on chronic anticoagulation therapy, hypertension, hyperlipidemia, gastroesophageal reflux disease, anxiety, depression, and constipation. PAST SURGICAL HISTORY: Left total hip replacement, right total knee replacement, tonsillectomy, right rotator cuff repair, back surgery, and PEG tube placement. SOCIAL HISTORY: The patient is . [facility] in a [facility]. Former smoker. History of polysubstance abuse. REVIEW OF SYSTEMS: Limited as the patient's speech is difficult to understand. He denies pain, trouble breathing or upset stomach. ALLERGIES: MORPHINE. MEDICATIONS: Vancomycin, piperacillin/tazobactam, and methylprednisolone. Other medications are available and have been reviewed on the [facility]. PHYSICAL EXAMINATION: GENERAL: Thin male lying in bed in no apparent distress. VITAL SIGNS: Afebrile. Stable. HEENT: Pupils equally round. Normal conjunctivae. Oral mucosa is pink and moist. Poor dentition. NECK: Supple. LUNGS: Clear to auscultation anteriorly. CARDIOVASCULAR: Normal S1, S2. ABDOMEN: Nondistended. Bowel sounds are present, soft and nontender. PEG tube intact. EXTREMITIES: No gross edema or cyanosis. SKIN: Without rash. Warm to touch. NEUROLOGIC: Alert, cooperative. Speech is somewhat difficult to understand. LABORATORY DATA: Today's WBC 13.5, hemoglobin 13.9, platelet count 167,000, segs 89%, and lymphocytes 5%. Electrolytes were unremarkable. Creatinine 0.8, BUN 22, glucose 63, total bilirubin 0.6, AST 59, and ALT 88. Troponin less than 0.017. BNP 226, albumin 3.0. Urinalysis unremarkable for infection. Influenza screen negative. IMAGING: Per HPI. ASSESSMENT: 1. Healthcare acquired pneumonia. 2. Leukocytosis. 3. Dysphagia. 4. Atrial fibrillation. 5. Chronic obstructive pulmonary disease. PLAN: Continue the vancomycin and piperacillin/tazobactam. Monitor laboratory values. Supportive care. Thank you, Dr. Dyer, for asking us to participate in this patient's care. Should you have further questions or concerns please call. PAULIE FELIX MD DR: MARY/aishwarya JOB#: [id number] / [id number]
[2016-09-06 03:21] VITALS: BP 97/52
[2016-09-06] MEDS: IV NORMAL SALINE 1000ML BAG 1,000 ML IV SCH ×2 (04:05→16:48)
[2016-09-06] MEDS: DILTIAZEM HCL 30 MG TABLET PEG SCH ×4 (06:00→18:00)
[2016-09-06 07:00] VITALS: BP 90/52
[2016-09-06] MEDS: IPRATRPIUM/ALBUTEROL 0.5/2.5MG 3 ML NEBU. NEB SCH ×4 (07:10→19:20)
[2016-09-06] MEDS: OXYCODONE IR 5 MG TABLET. PEG SCH (08:00)
[2016-09-06] MEDS: CARVEDILOL 12.5 MG TABLET PEG SCH ×2 (08:00→16:49)
[2016-09-06] MEDS: METOCLOPRAMIDE HCL 10 MG/10 ML SOLUTION. PEG SCH ×3 (08:37→16:48)
[2016-09-06] MEDS: POLYETHYLENE GLYCOL 3350 17 GM PACKET. PEG SCH (08:39)
[2016-09-06] MEDS: BACLOFEN 10 MG TABLET PEG SCH ×3 (08:39→21:13)
[2016-09-06] MEDS: THIAMINE 100 MG TABLET. PEG SCH (08:39)
[2016-09-06] MEDS: FAMOTIDINE 20 MG TABLET. PEG SCH ×2 (08:39→21:13)
[2016-09-06] MEDS: busPIRone 10 MG TABLET. PEG SCH ×3 (08:39→21:12)
[2016-09-06] MEDS: OXYBUTYNIN CHLORIDE 5 MG TABLET PEG SCH ×2 (08:39→21:13)
[2016-09-06] MEDS: DULOXETINE HCL 30 MG CAPSULE.DR. PO SCH (08:40)
[2016-09-06] MEDS: methylPREDNISolone SOD SUCC PF 40 MG/ML VIAL. IV SCH ×2 (08:41→21:11)
[2016-09-06] MEDS ORDERED: FLU VACC QUAD 2016-17 (36MOS+)/PF 0.5 ML SYRINGE. VAX IM ONE (09:00)
[2016-09-06] MEDS ORDERED: PNEUMOC CONJ VACC 23-VALENT 0.5 ML VIAL. VAX IM ONE (09:00)
[2016-09-06] MEDS: HEPARIN PF for SUB-Q USE 5,000 UNIT/0.5 ML VIAL. SQ SCH ×2 (09:09→21:23)
--- NOTE | 2016-09-06 10:01 | PDOC ---
PULMONARY PROGRESS NOTES Subjective no change Vitals Vital Signs Date Time Temp Pulse Resp B/P Pulse Ox O2 Delivery O2 Flow Rate FiO2 09/06/16 08:00 67 90/52 09/06/16 07:14 Nasal Cannula 1.0 09/06/16 07:00 97.9 18 100 97.9 Lungs: Other (decrease bs left base) Cardiovascular: S1, S2 Abdomen: Soft Extremities: No Edema, Other (left upper contracture) Labs Laboratory Tests Test 09/04/16 14:10 09/04/16 17:00 09/05/16 06:15 09/05/16 07:58 White Blood Count 12.8x10^3/uL (4.0-11.0) 13.5x10^3/uL (4.0-11.0) Red Blood Count 4.07x10^6/uL (4.30-5.70) 4.24x10^6/uL (4.30-5.70) Hemoglobin 13.6g/dL (13.0-17.5) 13.9g/dL (13.0-17.5) Hematocrit 41.0% (39.0-53.0) 43.3% (39.0-53.0) Mean Corpuscular Volume 101fL (79-100) 102fL (79-100) Mean Corpuscular Hemoglobin 34pg (25-35) 33pg (25-35) Mean Corpuscular Hemoglobin Concent 33g/dL (31-37) 32g/dL (31-37) Red Cell Distribution Width 13.7% (11.5-14.5) 14.1% (11.5-14.5) Platelet Count 231x10^3/uL (140-400) 167x10^3/uL (140-400) Neutrophils (%) (Auto) 86% (31-73) 85% (31-73) Lymphocytes (%) (Auto) 6% (24-48) 7% (24-48) Monocytes (%) (Auto) 8% (0-9) 7% (0-9) Eosinophils (%) (Auto) 0% (0-3) 0% (0-3) Basophils (%) (Auto) 0% (0-3) 0% (0-3) Neutrophils # (Auto) 10.9x10^3uL (1.8-7.7) 11.5x10^3uL (1.8-7.7) Lymphocytes # (Auto) 0.8x10^3/uL (1.0-4.8) 1.0x10^3/uL (1.0-4.8) Monocytes # (Auto) 1.0x10^3/uL (0.0-1.1) 1.0x10^3/uL (0.0-1.1) Eosinophils # (Auto) 0.0x10^3/uL (0.0-0.7) 0.1x10^3/uL (0.0-0.7) Basophils # (Auto) 0.0x10^3/uL (0.0-0.2) 0.0x10^3/uL (0.0-0.2) Segmented Neutrophils % 89% (35-66) Lymphocytes % 5% (24-48) Atypical Lymphocytes % (Manual) 1% (0-0) Monocytes % 5% (0-10) Platelet Estimate Adequate (ADEQUATE) Ovalocytes Mod Schistocytes Occ Sodium Level 143mmol/L (136-145) 143mmol/L (136-145) Potassium Level 4.6mmol/L (3.5-5.1) 3.8mmol/L (3.5-5.1) Chloride Level 103mmol/L (98-107) 104mmol/L (98-107) Carbon Dioxide Level 32mmol/L (21-32) 30mmol/L (21-32) Anion Gap 8 (6-14) 9 (6-14) Blood Urea Nitrogen 23mg/dL (8-26) 22mg/dL (8-26) Creatinine 0.8mg/dL (0.7-1.3) 0.8mg/dL (0.7-1.3) Estimated GFR (Cockcroft-Gault) 96.1 96.1 BUN/Creatinine Ratio 29 (6-20) 28 (6-20) Glucose Level 93mg/dL (70-99) 63mg/dL (70-99) Lactic Acid Level 1.4mmol/L (0.4-2.0) Calcium Level 9.3mg/dL (8.5-10.1) 9.3mg/dL (8.5-10.1) Total Bilirubin 0.5mg/dL (0.2-1.0) 0.6mg/dL (0.2-1.0) Aspartate Amino Transf (AST/SGOT) 70U/L (15-37) 59U/L (15-37) Alanine Aminotransferase (ALT/SGPT) 97U/L (16-63) 88U/L (16-63) Alkaline Phosphatase 71U/L (46-116) 77U/L (46-116) Troponin I Quantitative < 0.017ng/mL (0.000-0.055) QV-Qrj-G-Type Natriuretic Peptide 226pg/mL (0-124) Total Protein 7.6g/dL (6.4-8.2) 6.9g/dL (6.4-8.2) Albumin 3.0g/dL (3.4-5.0) 3.0g/dL (3.4-5.0) Albumin/Globulin Ratio 0.7 (1.0-1.7) 0.8 (1.0-1.7) Urine Collection Type Unknown Urine Color Yellow Urine Clarity Clear Urine pH 7.5 Urine Specific [place] 1.015 Urine Protein Negativemg/dL (NEG-TRACE) Urine Glucose (UA) Negativemg/dL (NEG) Urine Ketones (Stick) Negativemg/dL (NEG) Urine Blood Negative (NEG) Urine Nitrite Negative (NEG) Urine Bilirubin Negative (NEG) Urine Urobilinogen Dipstick 1.0mg/dL (0.2 mg/dL) Urine Leukocyte Esterase Negative (NEG) Urine RBC 0/HPF (0-2) Urine WBC Occ/HPF (0-4) Urine Squamous Epithelial Cells Occ/LPF Urine Transitional Epithelial Cells Occ/LPF Urine Bacteria 0/HPF (0-FEW) Influenza Type A Antigen Negative (NEGATIVE) Influenza Type B Antigen Negative (NEGATIVE) Glucose (Fingerstick) 99mg/dL (70-99) Medications Active Scripts Medications Dose Route/Sig Days Date Category Vitamin B-1 (Thiamine Mononitrate) 100 Mg Tablet 100 Mg PO DAILY 09/04/16 Reported Tylenol (Acetaminophen) 325 Mg Tablet 1 Tab PO PRN Q4HRS 09/04/16 Reported Reglan (Metoclopramide Hcl) 5 Mg Tablet 5 Mg PO TID 09/04/16 Reported Mucus ER (Guaifenesin) 600 Mg Tab.er.12h 600 Mg PO BID 09/04/16 Reported Famotidine 20 Mg Tablet 20 Mg PO BID 09/04/16 Reported Duoneb 0.5-3(2.5) Mg/3 Ml (Albuterol/Ipratropium) 3 Ml Ampul.neb 3 Ml NEB QID 09/04/16 Reported Xarelto (Rivaroxaban) 20 Mg Tablet 20 Mg PO DAILY 05/12/16 Reported Thiamine Hcl 100 Mg Tablet 100 Mg PO DAILY 05/12/16 Reported Transderm-Scop (Scopolamine) 1 Each Patch.td72 1 Patch TP Q3DAYS 05/12/16 Reported Ranitidine Hcl 150 Mg Capsule 1 Cap PO BID 05/12/16 Reported Oxycontin (Oxycodone HCl) 10 Mg Tab.er.12h 10 Mg PO BID 05/12/16 Reported Oxycodone Hcl 5 Mg Capsule 1 Cap PO PRN Q6HRS PRN 05/12/16 Reported Oxybutynin Chloride 5 Mg Tablet 1 Tab PO BID 05/12/16 Reported Ondansetron Hcl 4 Mg Tablet 1 Tab PO PRN Q8HRS PRN 05/12/16 Reported Mirtazapine 30 Mg Tablet 1 Tab PO QHS 05/12/16 Reported Miralax (Polyethylene Glycol 3350) 17 Gm Powd.pack 1 Pkt PO PRN DAILY PRN 05/12/16 Reported Lactulose 20 Gm/30 Ml Solution 20 Gm PO PRN DAILY PRN 05/12/16 Reported Docusate Sodium 100 Mg Capsule 1 Cap PO PRN BID PRN 05/12/16 Reported Diltiazem 24HR Cd (Diltiazem Hcl) 120 Mg Cap.er.24h 120 Mg PO DAILY 05/12/16 Reported Cymbalta (Duloxetine Hcl) 60 Mg Capsule.dr 60 Mg PO DAILY 05/12/16 Reported Coreg (Carvedilol) 12.5 Mg Tablet 1 Tab PO BID 05/12/16 Reported Buspirone Hcl 15 Mg Tablet 15 Mg PO TID 05/12/16 Reported Baclofen 10 Mg Tablet 10 Mg PO TID 05/12/16 Reported Atorvastatin Calcium 40 Mg Tablet 40 Mg PO HS 05/12/16 Reported Alprazolam 0.5 Mg Tablet 1 Tab PO PRN Q4HRS PRN 05/12/16 Reported Impression . 1. Acute hypoxic respiratory failure secondary to acute left lower lobe healthcare-associated pneumonia, best seen on CT chest 2. 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 3. History of dysphagia, status post PEG tube placement. 4. Leukocytosis secondary to pneumonia. 5. Influenza negative. Plan . 1. Keep head of the bed elevated at 30 degrees and watch for aspiration. 2. Continue tube feeds. 3. noncontrast CT chest c/w left lower lobe pneumonia 4. Continue with present antibiotics for healthcare-associated pneumonia. 5. Bronchodilators p.r.n. 6. We will follow. 7. Taper steroids gradually. 8. We will follow along with you. ALEXANDER BOWIE MD Sep 06, 2016 10:01
[2016-09-06 11:06] VITALS: BP 145/60
[2016-09-06] MEDS: VANCOMYCIN 1 GM in IV NORMAL SALINE 250ML 250 ML IV SCH (11:39)
--- NOTE | 2016-09-06 12:01 | PDOC ---
IM PROGRESS NOTES- Subjective Subjective sleeping.As per staff he has yellow discharge from the left eye. Objective Vitals Vital Signs Date Time Temp Pulse Resp B/P Pulse Ox O2 Delivery O2 Flow Rate FiO2 09/06/16 11:38 54 145/60 09/06/16 11:07 Nasal Cannula 1.0 09/06/16 11:06 98.0 18 93 98.0 Input & Output Intake and Output 09/06/16 07:00 Intake Total 94820 ml Output Total 0 ml Balance 03086 ml IV Total 3350 ml Tube Feeding 7080 ml Output Gastric Drainage Total 0 ml # Voids 5 Physical Exam Physical Exam General appearance - sleepy and in less distress left eye minimal congestion Head - normal Chest - decreased air entry Heart - S1 and S2 normal Abdomen - soft, nontender, nondistended, no masses or organomegaly Neurological - sleepy Musculoskeletal - no muscular tenderness noted Extremities - no pedal edema Skin - warm and dry Labs Laboratory Tests Test 09/04/16 14:10 09/04/16 17:00 09/05/16 06:15 09/05/16 07:58 White Blood Count 12.8x10^3/uL (4.0-11.0) 13.5x10^3/uL (4.0-11.0) Red Blood Count 4.07x10^6/uL (4.30-5.70) 4.24x10^6/uL (4.30-5.70) Hemoglobin 13.6g/dL (13.0-17.5) 13.9g/dL (13.0-17.5) Hematocrit 41.0% (39.0-53.0) 43.3% (39.0-53.0) Mean Corpuscular Volume 101fL (79-100) 102fL (79-100) Mean Corpuscular Hemoglobin 34pg (25-35) 33pg (25-35) Mean Corpuscular Hemoglobin Concent 33g/dL (31-37) 32g/dL (31-37) Red Cell Distribution Width 13.7% (11.5-14.5) 14.1% (11.5-14.5) Platelet Count 231x10^3/uL (140-400) 167x10^3/uL (140-400) Neutrophils (%) (Auto) 86% (31-73) 85% (31-73) Lymphocytes (%) (Auto) 6% (24-48) 7% (24-48) Monocytes (%) (Auto) 8% (0-9) 7% (0-9) Eosinophils (%) (Auto) 0% (0-3) 0% (0-3) Basophils (%) (Auto) 0% (0-3) 0% (0-3) Neutrophils # (Auto) 10.9x10^3uL (1.8-7.7) 11.5x10^3uL (1.8-7.7) Lymphocytes # (Auto) 0.8x10^3/uL (1.0-4.8) 1.0x10^3/uL (1.0-4.8) Monocytes # (Auto) 1.0x10^3/uL (0.0-1.1) 1.0x10^3/uL (0.0-1.1) Eosinophils # (Auto) 0.0x10^3/uL (0.0-0.7) 0.1x10^3/uL (0.0-0.7) Basophils # (Auto) 0.0x10^3/uL (0.0-0.2) 0.0x10^3/uL (0.0-0.2) Segmented Neutrophils % 89% (35-66) Lymphocytes % 5% (24-48) Atypical Lymphocytes % (Manual) 1% (0-0) Monocytes % 5% (0-10) Platelet Estimate Adequate (ADEQUATE) Ovalocytes Mod Schistocytes Occ Sodium Level 143mmol/L (136-145) 143mmol/L (136-145) Potassium Level 4.6mmol/L (3.5-5.1) 3.8mmol/L (3.5-5.1) Chloride Level 103mmol/L (98-107) 104mmol/L (98-107) Carbon Dioxide Level 32mmol/L (21-32) 30mmol/L (21-32) Anion Gap 8 (6-14) 9 (6-14) Blood Urea Nitrogen 23mg/dL (8-26) 22mg/dL (8-26) Creatinine 0.8mg/dL (0.7-1.3) 0.8mg/dL (0.7-1.3) Estimated GFR (Cockcroft-Gault) 96.1 96.1 BUN/Creatinine Ratio 29 (6-20) 28 (6-20) Glucose Level 93mg/dL (70-99) 63mg/dL (70-99) Lactic Acid Level 1.4mmol/L (0.4-2.0) Calcium Level 9.3mg/dL (8.5-10.1) 9.3mg/dL (8.5-10.1) Total Bilirubin 0.5mg/dL (0.2-1.0) 0.6mg/dL (0.2-1.0) Aspartate Amino Transf (AST/SGOT) 70U/L (15-37) 59U/L (15-37) Alanine Aminotransferase (ALT/SGPT) 97U/L (16-63) 88U/L (16-63) Alkaline Phosphatase 71U/L (46-116) 77U/L (46-116) Troponin I Quantitative < 0.017ng/mL (0.000-0.055) KR-[id number]-Type Natriuretic Peptide 226pg/mL (0-124) Total Protein 7.6g/dL (6.4-8.2) 6.9g/dL (6.4-8.2) Albumin 3.0g/dL (3.4-5.0) 3.0g/dL (3.4-5.0) Albumin/Globulin Ratio 0.7 (1.0-1.7) 0.8 (1.0-1.7) Urine Collection Type Unknown Urine Color Yellow Urine Clarity Clear Urine pH 7.5 Urine Specific [place] 1.015 Urine Protein Negativemg/dL (NEG-TRACE) Urine Glucose (UA) Negativemg/dL (NEG) Urine Ketones (Stick) Negativemg/dL (NEG) Urine Blood Negative (NEG) Urine Nitrite Negative (NEG) Urine Bilirubin Negative (NEG) Urine Urobilinogen Dipstick 1.0mg/dL (0.2 mg/dL) Urine Leukocyte Esterase Negative (NEG) Urine RBC 0/HPF (0-2) Urine WBC Occ/HPF (0-4) Urine Squamous Epithelial Cells Occ/LPF Urine Transitional Epithelial Cells Occ/LPF Urine Bacteria 0/HPF (0-FEW) Influenza Type A Antigen Negative (NEGATIVE) Influenza Type B Antigen Negative (NEGATIVE) Glucose (Fingerstick) 99mg/dL (70-99) Meds Current Medications Guaifenesin (Robitussin Dm) 20 ml Q6HRS PEG Last administered on 09/06/16 06: 16; Start 09/05/16 at 12:00 Influenza Virus Vaccine Quadrival (Fluarix Quad [id number] Syringe) 0.5 ml ONCE ONCE VAX IM Last administered on 09/06/16 10:02; Start 09/06/16 at 09:00; Stop 09/06/16 at 09:01; Status DC Mirtazapine (Remeron) 30 mg QHS PEG Last administered on 09/05/16 22:09; Start 09/05/16 at 21:00 Pneumococcal Polyvalent Vaccine (Pneumovax 23) 0.5 ml ONCE ONCE VAX IM Last administered on 09/06/16 10:06; Start 09/06/16 at 09:00; Stop 09/06/16 at 09:01 ; Status DC Rivaroxaban (Xarelto) 15 mg DAILYWSUP PO ; Start 09/05/16 at 17:00; Stop at 17:00; Status DC Rivaroxaban (Xarelto) 20 mg DAILYWSUP PO ; Start 09/05/16 at 17:00; Stop at 17:00; Status DC Vancomycin HCl 1 each 1X ONCE MC Last administered on 09/06/16 11:00; Start 09/06/16 at 11:00; Stop 09/06/16 at 11:01; Status DC Assessment Assessment 1. acute hypoxic respiratory failure 2. HCFA pneumonia grm neg/gram positive w/o sepsis outpatient treatment failure 3. EXCOPD 4. HTN 5. AF chronic xarelto 6. h/o R thalamic infarct with L sided hemiplegia 7. GERD 8. dysphagia with PEG 9. chronic moderate PCL malnutrition 10. mildly elevated LFTs 11. major depression recurrent mild PLAN: pneumonia/EXCOPD zosyn/vanc pulmonary consult ID consult supplemental O2 duoneb/mucinex Solu Med 40mg IV q12h HTN continue home meds low BP begin NS 100cc/hr malnutrition NPO ETF Fibersource 1.2 6 cans per day H20 200cc TID speech therapy to evaluate-pureed diet/honey thick liquids on [facility] order, pt reports not taking anything by mouth AF med tele xarelto Cardizem CD 120mg changed to Cardizem 30mg q 6 hr depression cymbalta 60mg changed to 30mg bid (d/w pharmacy) LFTs Admit AST 70 02/ 59 ALT 97 88 AP 71 77 DVT/GI prophylaxis SCD/BALA xarelto Pepcid Blephritis left eye- start Bleph 10. Plan Plan IMPRESSION: 1. acute hypoxic respiratory failure 2. HCFA pneumonia grm neg/gram positive w/o sepsis outpatient treatment failure 3. EXCOPD 4. HTN 5. AF chronic xarelto 6. h/o R thalamic infarct with L sided hemiplegia 7. GERD 8. dysphagia with PEG 9. chronic moderate PCL malnutrition 10. mildly elevated LFTs 11. major depression recurrent mild PLAN: pneumonia/EXCOPD zosyn/vanc pulmonary consult ID consult supplemental O2 duoneb/mucinex Solu Med 40mg IV q12h HTN continue home meds low BP begin NS 100cc/hr malnutrition NPO ETF Fibersource 1.2 6 cans per day H20 200cc TID speech therapy to evaluate-pureed diet/honey thick liquids on [facility] order, pt reports not taking anything by mouth AF med tele xarelto Cardizem CD 120mg changed to Cardizem 30mg q 6 hr depression cymbalta 60mg changed to 30mg bid (d/w pharmacy) LFTs Admit AST 70 02/ 59 ALT 97 88 AP 71 77 DVT/GI prophylaxis SCD/BALA xarelto Pepcid For more details regarding further plans, please refer to the orders. VASQUEZ ASIF MD Sep 06, 2016 12:01
[2016-09-06 12:05] LABS: ALBUMIN 2.4 g/dL (3.4-5.0); ALBUMIN/GLOBULIN RATIO 0.7 (1.0-1.7); BASO % 0 % (0-3); CALCIUM 8.4 mg/dL (8.5-10.1); CREATININE 0.7 mg/dL (0.7-1.3); EOS % 0 % (0-3); GFR 111.8; HEMATOCRIT 36.5 % (39.0-53.0); LYMPH # 0.2 x10^3/uL (1.0-4.8); LYMPH % 2 % (24-48); MAGNESIUM 2.2 mg/dL (1.8-2.4); MEAN CORPUSCULAR HEMOGLOBIN 33 pg (25-35); MEAN CORPUSCULAR HGB CONC 33 g/dL (31-37); MEAN CORPUSCULAR VOLUME 100 fL (79-100); MONO % 5 % (0-9); NEUT % 94 % (31-73); PLATELET COUNT 185 x10^3/uL (140-400); POTASSIUM 3.7 mmol/L (3.5-5.1); RED BLOOD COUNT 3.67 x10^6/uL (4.30-5.70); TOTAL BILIRUBIN 0.5 mg/dL (0.2-1.0); TOTAL PROTEIN 5.9 g/dL (6.4-8.2); WHITE BLOOD COUNT 13.3 x10^3/uL (4.0-11.0)
--- NOTE | 2016-09-06 12:05 | PDOC ---
Infectious Disease Note Subjective Subjective Quiet No fever No increase O2 demands No diarrhea or vomiting reported Tube feedings, no residuals Vital Sign Vital Signs Vital Signs Date Time Temp Pulse Resp B/P Pulse Ox O2 Delivery O2 Flow Rate FiO2 09/06/16 11:38 54 145/60 09/06/16 11:07 Nasal Cannula 1.0 09/06/16 11:06 98.0 18 93 98.0 Physical Exam PHYSICAL EXAM GENERAL: Propped up in bed, watching TV, withdrawn HEENT: Pupils equally round. Normal conjunctivae. Oral mucosa is pink and moist. Poor dentition. NECK: Supple. LUNGS: Clear to auscultation anteriorly, nonlabored CARDIOVASCULAR: Normal S1, S2. ABDOMEN: Nondistended. Bowel sounds are present, soft and nontender. PEG tube intact. EXTREMITIES: No gross edema or cyanosis. SKIN: Without rash. Warm to touch. NEUROLOGIC: Alert, cooperative. Objective Assessment HCAP Leukocytosis Dysphagia COPD A-fib h/o CVA Plan Plan of Care Continue vanc and Zosyn -Recent Levaquin, vantin & azithromycin On steroids Monitor labs Sputum culture Supportive care Patient seen and examined. Chart reviewed. Case discussed with ER MEDICAL TECHNICIAN. Agree with above plan SARA MAYA APRN Sep 06, 2016 12:05 PAULIE FELIX MD Sep 06, 2016 17:28
[2016-09-06] MEDS: VANCOMYCIN PER PHARMACY MC PRN ×2 (13:05→13:12)
[2016-09-06] MEDS: SULFACETAMIDE 10% OPHTH SOLUTION 15ML BOTTLE. OS SCH ×3 (14:11→21:14)
[2016-09-06 15:00] VITALS: BP 140/58
[2016-09-06 19:00] VITALS: BP 102/60
[2016-09-06] MEDS: ATORVASTATIN CALCIUM 40 MG TABLET. PEG SCH (21:13)
[2016-09-06] MEDS: MIRTAZAPINE 15 MG TABLET PEG SCH (21:13)
[2016-09-06 22:58] VITALS: BP 111/64
[2016-09-07] MEDS: PIPERACILLIN/TAZOBACTAM 4.5 GM in IV NORMAL SALINE 100ML 100 ML IV SCH ×4 (00:16→17:39)
[2016-09-07] MEDS: VANCOMYCIN 1 GM in IV NORMAL SALINE 250ML 250 ML IV SCH ×3 (01:46→23:05)
[2016-09-07] MEDS: GUAIFENESIN DM 200MG/20MG 10 ML SYRUP. PEG SCH ×4 (02:15→17:39)
[2016-09-07] MEDS: DILTIAZEM HCL 30 MG TABLET PEG SCH ×4 (02:25→17:20)
[2016-09-07 03:17] VITALS: BP 132/78
[2016-09-07] MEDS: IV NORMAL SALINE 1000ML BAG 1,000 ML IV SCH ×3 (05:28→22:27)
[2016-09-07 07:00] VITALS: BP 110/55
[2016-09-07] MEDS: CARVEDILOL 12.5 MG TABLET PEG SCH ×2 (08:00→17:00)
[2016-09-07] MEDS: IPRATRPIUM/ALBUTEROL 0.5/2.5MG 3 ML NEBU. NEB SCH ×4 (08:03→19:42)
[2016-09-07 08:12] LABS: BASO % 0 % (0-3); EOS % 0 % (0-3); HEMATOCRIT 36.1 % (39.0-53.0); HEMOGLOBIN 11.9 g/dL (13.0-17.5); LYMPH # 0.3 x10^3/uL (1.0-4.8); LYMPH % 2 % (24-48); MEAN CORPUSCULAR HEMOGLOBIN 33 pg (25-35); MEAN CORPUSCULAR HGB CONC 33 g/dL (31-37); MEAN CORPUSCULAR VOLUME 101 fL (79-100); MONO % 3 % (0-9); NEUT % 95 % (31-73); PLATELET COUNT 180 x10^3/uL (140-400); RED BLOOD COUNT 3.59 x10^6/uL (4.30-5.70); RED CELL DISTRIBUTION WIDTH 13.8 % (11.5-14.5); WHITE BLOOD COUNT 14.9 x10^3/uL (4.0-11.0)
[2016-09-07 08:31] LABS: ALBUMIN 2.2 g/dL (3.4-5.0); ALBUMIN/GLOBULIN RATIO 0.6 (1.0-1.7); CALCIUM 8.4 mg/dL (8.5-10.1); CREATININE 0.7 mg/dL (0.7-1.3); GFR 111.8; POTASSIUM 3.9 mmol/L (3.5-5.1); TOTAL BILIRUBIN 0.4 mg/dL (0.2-1.0); TOTAL PROTEIN 6.2 g/dL (6.4-8.2)
[2016-09-07] MEDS: SULFACETAMIDE 10% OPHTH SOLUTION 15ML BOTTLE. OS SCH ×4 (09:00→21:50)
[2016-09-07] MEDS: OXYBUTYNIN CHLORIDE 5 MG TABLET PEG SCH ×2 (09:00→21:50)
--- NOTE | 2016-09-07 09:21 | PDOC ---
Infectious Disease Note Subjective Subjective Quiet No fever No increase O2 demands No diarrhea or vomiting reported Tube feedings, no residuals ROS ROS Unobtainable Vital Sign Vital Signs Vital Signs Date Time Temp Pulse Resp B/P Pulse Ox O2 Delivery O2 Flow Rate FiO2 09/07/16 08:03 95 Nasal Cannula 1.0 09/07/16 07:00 97.7 68 16 110/55 97.7 Physical Exam PHYSICAL EXAM GENERAL: Propped up in bed, watching TV, withdrawn. Alert HEENT: Pupils equally round. Normal conjunctivae. Oral mucosa is pink and moist. Poor dentition. NECK: Supple. LUNGS: Clear to auscultation anteriorly, nonlabored CARDIOVASCULAR: Normal S1, S2. ABDOMEN: Nondistended. Bowel sounds are present, soft and nontender. PEG tube intact. EXTREMITIES: No gross edema or cyanosis. SKIN: Without rash. Warm to touch. NEUROLOGIC: Alert, cooperative. Labs Lab Laboratory Tests Test 09/06/16 11:20 09/07/16 08:05 White Blood Count 13.3x10^3/uL (4.0-11.0) 14.9x10^3/uL (4.0-11.0) Red Blood Count 3.67x10^6/uL (4.30-5.70) 3.59x10^6/uL (4.30-5.70) Hemoglobin 12.0g/dL (13.0-17.5) 11.9g/dL (13.0-17.5) Hematocrit 36.5% (39.0-53.0) 36.1% (39.0-53.0) Mean Corpuscular Volume 100fL (79-100) 101fL (79-100) Mean Corpuscular Hemoglobin 33pg (25-35) 33pg (25-35) Mean Corpuscular Hemoglobin Concent 33g/dL (31-37) 33g/dL (31-37) Red Cell Distribution Width 14.0% (11.5-14.5) 13.8% (11.5-14.5) Platelet Count 185x10^3/uL (140-400) 180x10^3/uL (140-400) Neutrophils (%) (Auto) 94% (31-73) 95% (31-73) Lymphocytes (%) (Auto) 2% (24-48) 2% (24-48) Monocytes (%) (Auto) 5% (0-9) 3% (0-9) Eosinophils (%) (Auto) 0% (0-3) 0% (0-3) Basophils (%) (Auto) 0% (0-3) 0% (0-3) Neutrophils # (Auto) 12.5x10^3uL (1.8-7.7) 14.1x10^3uL (1.8-7.7) Lymphocytes # (Auto) 0.2x10^3/uL (1.0-4.8) 0.3x10^3/uL (1.0-4.8) Monocytes # (Auto) 0.6x10^3/uL (0.0-1.1) 0.4x10^3/uL (0.0-1.1) Eosinophils # (Auto) 0.0x10^3/uL (0.0-0.7) 0.0x10^3/uL (0.0-0.7) Basophils # (Auto) 0.0x10^3/uL (0.0-0.2) 0.0x10^3/uL (0.0-0.2) Sodium Level 144mmol/L (136-145) 146mmol/L (136-145) Potassium Level 3.7mmol/L (3.5-5.1) 3.9mmol/L (3.5-5.1) Chloride Level 109mmol/L (98-107) 111mmol/L (98-107) Carbon Dioxide Level 26mmol/L (21-32) 28mmol/L (21-32) Anion Gap 9 (6-14) 7 (6-14) Blood Urea Nitrogen 21mg/dL (8-26) 20mg/dL (8-26) Creatinine 0.7mg/dL (0.7-1.3) 0.7mg/dL (0.7-1.3) Estimated GFR (Cockcroft-Gault) 111.8 111.8 BUN/Creatinine Ratio 30 (6-20) 29 (6-20) Glucose Level 153mg/dL (70-99) 207mg/dL (70-99) Calcium Level 8.4mg/dL (8.5-10.1) 8.4mg/dL (8.5-10.1) Magnesium Level 2.2mg/dL (1.8-2.4) Total Bilirubin 0.5mg/dL (0.2-1.0) 0.4mg/dL (0.2-1.0) Aspartate Amino Transf (AST/SGOT) 39U/L (15-37) 81U/L (15-37) Alanine Aminotransferase (ALT/SGPT) 66U/L (16-63) 112U/L (16-63) Alkaline Phosphatase 59U/L (46-116) 57U/L (46-116) Total Protein 5.9g/dL (6.4-8.2) 6.2g/dL (6.4-8.2) Albumin 2.4g/dL (3.4-5.0) 2.2g/dL (3.4-5.0) Albumin/Globulin Ratio 0.7 (1.0-1.7) 0.6 (1.0-1.7) Vancomycin Level Trough 13.8mcg/mL (10.0-20.0) Vancomycin Last Dose Date 09/05/16 Vancomycin Last Dose Time [address] chest 09/05 IMPRESSION: 1. Moderate infiltrate in the left lower lobe and posterior aspect of the left upper lobe compatible with pneumonia. 2. Aortic atherosclerosis with mild dilatation of the ascending aorta. 3. Moderate coronary artery calcifications. Objective Assessment HCAP -Left on pneumonia Leukocytosis Dysphagia COPD A-fib h/o CVA Plan Plan of Care Cont Vanc/Zosyn for now -Recent Levaquin, vantin & azithromycin On steroids Monitor labs Sputum culture Supportive care ZHENG MARTINEZ MD Sep 07, 2016 09:21
--- NOTE | 2016-09-07 10:12 | PDOC ---
Provider Note Provider Note Pt admitted from [facility] admitted to my service by mistake seen by my partner over the weekend, will transfer care to hospitalist. spoke with dr Guy,agreeable to transfer care to her. CHELI CLARKE MD Sep 07, 2016 10:12
[2016-09-07] MEDS ORDERED: ONDANSETRON PF 4 MG/2 ML VIAL. IV PRN (10:15)
[2016-09-07] MEDS ORDERED: ACETAMINOPHEN 500 MG TABLET PO PRN (10:15)
[2016-09-07] MEDS: BACLOFEN 10 MG TABLET PEG SCH ×3 (10:40→21:51)
[2016-09-07] MEDS: POLYETHYLENE GLYCOL 3350 17 GM PACKET. PEG SCH (10:40)
[2016-09-07] MEDS: METOCLOPRAMIDE HCL 10 MG/10 ML SOLUTION. PEG SCH ×3 (10:40→17:39)
[2016-09-07] MEDS: FAMOTIDINE 20 MG TABLET. PEG SCH ×2 (10:41→21:50)
[2016-09-07] MEDS: busPIRone 10 MG TABLET. PEG SCH ×3 (10:41→21:51)
[2016-09-07] MEDS: DULOXETINE HCL 30 MG CAPSULE.DR. PO SCH (10:41)
[2016-09-07] MEDS: THIAMINE 100 MG TABLET. PEG SCH (10:41)
--- NOTE | 2016-09-07 10:41 | PDOC ---
PULMONARY PROGRESS NOTES Subjective no change Vitals Vital Signs Date Time Temp Pulse Resp B/P Pulse Ox O2 Delivery O2 Flow Rate FiO2 09/07/16 08:03 95 Nasal Cannula 1.0 09/07/16 07:00 97.7 68 16 110/55 97.7 Lungs: Other (decrease bs left base) Cardiovascular: S1, S2 Abdomen: Soft Extremities: No Edema, Other (left upper contracture) Labs Laboratory Tests Test 09/06/16 11:20 09/07/16 08:05 White Blood Count 13.3x10^3/uL (4.0-11.0) 14.9x10^3/uL (4.0-11.0) Red Blood Count 3.67x10^6/uL (4.30-5.70) 3.59x10^6/uL (4.30-5.70) Hemoglobin 12.0g/dL (13.0-17.5) 11.9g/dL (13.0-17.5) Hematocrit 36.5% (39.0-53.0) 36.1% (39.0-53.0) Mean Corpuscular Volume 100fL (79-100) 101fL (79-100) Mean Corpuscular Hemoglobin 33pg (25-35) 33pg (25-35) Mean Corpuscular Hemoglobin Concent 33g/dL (31-37) 33g/dL (31-37) Red Cell Distribution Width 14.0% (11.5-14.5) 13.8% (11.5-14.5) Platelet Count 185x10^3/uL (140-400) 180x10^3/uL (140-400) Neutrophils (%) (Auto) 94% (31-73) 95% (31-73) Lymphocytes (%) (Auto) 2% (24-48) 2% (24-48) Monocytes (%) (Auto) 5% (0-9) 3% (0-9) Eosinophils (%) (Auto) 0% (0-3) 0% (0-3) Basophils (%) (Auto) 0% (0-3) 0% (0-3) Neutrophils # (Auto) 12.5x10^3uL (1.8-7.7) 14.1x10^3uL (1.8-7.7) Lymphocytes # (Auto) 0.2x10^3/uL (1.0-4.8) 0.3x10^3/uL (1.0-4.8) Monocytes # (Auto) 0.6x10^3/uL (0.0-1.1) 0.4x10^3/uL (0.0-1.1) Eosinophils # (Auto) 0.0x10^3/uL (0.0-0.7) 0.0x10^3/uL (0.0-0.7) Basophils # (Auto) 0.0x10^3/uL (0.0-0.2) 0.0x10^3/uL (0.0-0.2) Sodium Level 144mmol/L (136-145) 146mmol/L (136-145) Potassium Level 3.7mmol/L (3.5-5.1) 3.9mmol/L (3.5-5.1) Chloride Level 109mmol/L (98-107) 111mmol/L (98-107) Carbon Dioxide Level 26mmol/L (21-32) 28mmol/L (21-32) Anion Gap 9 (6-14) 7 (6-14) Blood Urea Nitrogen 21mg/dL (8-26) 20mg/dL (8-26) Creatinine 0.7mg/dL (0.7-1.3) 0.7mg/dL (0.7-1.3) Estimated GFR (Cockcroft-Gault) 111.8 111.8 BUN/Creatinine Ratio 30 (6-20) 29 (6-20) Glucose Level 153mg/dL (70-99) 207mg/dL (70-99) Calcium Level 8.4mg/dL (8.5-10.1) 8.4mg/dL (8.5-10.1) Magnesium Level 2.2mg/dL (1.8-2.4) Total Bilirubin 0.5mg/dL (0.2-1.0) 0.4mg/dL (0.2-1.0) Aspartate Amino Transf (AST/SGOT) 39U/L (15-37) 81U/L (15-37) Alanine Aminotransferase (ALT/SGPT) 66U/L (16-63) 112U/L (16-63) Alkaline Phosphatase 59U/L (46-116) 57U/L (46-116) Total Protein 5.9g/dL (6.4-8.2) 6.2g/dL (6.4-8.2) Albumin 2.4g/dL (3.4-5.0) 2.2g/dL (3.4-5.0) Albumin/Globulin Ratio 0.7 (1.0-1.7) 0.6 (1.0-1.7) Vancomycin Level Trough 13.8mcg/mL (10.0-20.0) Vancomycin Last Dose Date 09/05/16 Vancomycin Last Dose Time 2330 Laboratory Tests Test 09/06/16 11:20 09/07/16 08:05 White Blood Count 13.3x10^3/uL (4.0-11.0) 14.9x10^3/uL (4.0-11.0) Red Blood Count 3.67x10^6/uL (4.30-5.70) 3.59x10^6/uL (4.30-5.70) Hemoglobin 12.0g/dL (13.0-17.5) 11.9g/dL (13.0-17.5) Hematocrit 36.5% (39.0-53.0) 36.1% (39.0-53.0) Mean Corpuscular Volume 100fL (79-100) 101fL (79-100) Mean Corpuscular Hemoglobin 33pg (25-35) 33pg (25-35) Mean Corpuscular Hemoglobin Concent 33g/dL (31-37) 33g/dL (31-37) Red Cell Distribution Width 14.0% (11.5-14.5) 13.8% (11.5-14.5) Platelet Count 185x10^3/uL (140-400) 180x10^3/uL (140-400) Neutrophils (%) (Auto) 94% (31-73) 95% (31-73) Lymphocytes (%) (Auto) 2% (24-48) 2% (24-48) Monocytes (%) (Auto) 5% (0-9) 3% (0-9) Eosinophils (%) (Auto) 0% (0-3) 0% (0-3) Basophils (%) (Auto) 0% (0-3) 0% (0-3) Neutrophils # (Auto) 12.5x10^3uL (1.8-7.7) 14.1x10^3uL (1.8-7.7) Lymphocytes # (Auto) 0.2x10^3/uL (1.0-4.8) 0.3x10^3/uL (1.0-4.8) Monocytes # (Auto) 0.6x10^3/uL (0.0-1.1) 0.4x10^3/uL (0.0-1.1) Eosinophils # (Auto) 0.0x10^3/uL (0.0-0.7) 0.0x10^3/uL (0.0-0.7) Basophils # (Auto) 0.0x10^3/uL (0.0-0.2) 0.0x10^3/uL (0.0-0.2) Sodium Level 144mmol/L (136-145) 146mmol/L (136-145) Potassium Level 3.7mmol/L (3.5-5.1) 3.9mmol/L (3.5-5.1) Chloride Level 109mmol/L (98-107) 111mmol/L (98-107) Carbon Dioxide Level 26mmol/L (21-32) 28mmol/L (21-32) Anion Gap 9 (6-14) 7 (6-14) Blood Urea Nitrogen 21mg/dL (8-26) 20mg/dL (8-26) Creatinine 0.7mg/dL (0.7-1.3) 0.7mg/dL (0.7-1.3) Estimated GFR (Cockcroft-Gault) 111.8 111.8 BUN/Creatinine Ratio 30 (6-20) 29 (6-20) Glucose Level 153mg/dL (70-99) 207mg/dL (70-99) Calcium Level 8.4mg/dL (8.5-10.1) 8.4mg/dL (8.5-10.1) Magnesium Level 2.2mg/dL (1.8-2.4) Total Bilirubin 0.5mg/dL (0.2-1.0) 0.4mg/dL (0.2-1.0) Aspartate Amino Transf (AST/SGOT) 39U/L (15-37) 81U/L (15-37) Alanine Aminotransferase (ALT/SGPT) 66U/L (16-63) 112U/L (16-63) Alkaline Phosphatase 59U/L (46-116) 57U/L (46-116) Total Protein 5.9g/dL (6.4-8.2) 6.2g/dL (6.4-8.2) Albumin 2.4g/dL (3.4-5.0) 2.2g/dL (3.4-5.0) Albumin/Globulin Ratio 0.7 (1.0-1.7) 0.6 (1.0-1.7) Vancomycin Level Trough 13.8mcg/mL (10.0-20.0) Vancomycin Last Dose Date 09/05/16 Vancomycin Last Dose Time 2330 Medications Active Scripts Medications Dose Route/Sig Days Date Category Vitamin B-1 (Thiamine Mononitrate) 100 Mg Tablet 100 Mg PO DAILY 09/04/16 Reported Tylenol (Acetaminophen) 325 Mg Tablet 1 Tab PO PRN Q4HRS 09/04/16 Reported Reglan (Metoclopramide Hcl) 5 Mg Tablet 5 Mg PO TID 09/04/16 Reported Mucus ER (Guaifenesin) 600 Mg Tab.er.12h 600 Mg PO BID 09/04/16 Reported Famotidine 20 Mg Tablet 20 Mg PO BID 09/04/16 Reported Duoneb 0.5-3(2.5) Mg/3 Ml (Albuterol/Ipratropium) 3 Ml Ampul.neb 3 Ml NEB QID 09/04/16 Reported Xarelto (Rivaroxaban) 20 Mg Tablet 20 Mg PO DAILY 05/12/16 Reported Thiamine Hcl 100 Mg Tablet 100 Mg PO DAILY 05/12/16 Reported Transderm-Scop (Scopolamine) 1 Each Patch.td72 1 Patch TP Q3DAYS 05/12/16 Reported Ranitidine Hcl 150 Mg Capsule 1 Cap PO BID 05/12/16 Reported Oxycontin (Oxycodone HCl) 10 Mg Tab.er.12h 10 Mg PO BID 05/12/16 Reported Oxycodone Hcl 5 Mg Capsule 1 Cap PO PRN Q6HRS PRN 05/12/16 Reported Oxybutynin Chloride 5 Mg Tablet 1 Tab PO BID 05/12/16 Reported Ondansetron Hcl 4 Mg Tablet 1 Tab PO PRN Q8HRS PRN 05/12/16 Reported Mirtazapine 30 Mg Tablet 1 Tab PO QHS 05/12/16 Reported Miralax (Polyethylene Glycol 3350) 17 Gm Powd.pack 1 Pkt PO PRN DAILY PRN 05/12/16 Reported Lactulose 20 Gm/30 Ml Solution 20 Gm PO PRN DAILY PRN 05/12/16 Reported Docusate Sodium 100 Mg Capsule 1 Cap PO PRN BID PRN 05/12/16 Reported Diltiazem 24HR Cd (Diltiazem Hcl) 120 Mg Cap.er.24h 120 Mg PO DAILY 05/12/16 Reported Cymbalta (Duloxetine Hcl) 60 Mg Capsule.dr 60 Mg PO DAILY 05/12/16 Reported Coreg (Carvedilol) 12.5 Mg Tablet 1 Tab PO BID 05/12/16 Reported Buspirone Hcl 15 Mg Tablet 15 Mg PO TID 05/12/16 Reported Baclofen 10 Mg Tablet 10 Mg PO TID 05/12/16 Reported Atorvastatin Calcium 40 Mg Tablet 40 Mg PO HS 05/12/16 Reported Alprazolam 0.5 Mg Tablet 1 Tab PO PRN Q4HRS PRN 05/12/16 Reported Impression . 1. Acute hypoxic respiratory failure secondary to acute left lower lobe healthcare-associated pneumonia, best seen on CT chest 2. 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 3. History of dysphagia, status post PEG tube placement. 4. Leukocytosis secondary to pneumonia. 5. Influenza negative. Plan . 1. Keep head of the bed elevated at 30 degrees and watch for aspiration. 2. Continue tube feeds. 3. noncontrast CT chest c/w left lower lobe pneumonia 4. Continue with present antibiotics for healthcare-associated pneumonia. 5. Bronchodilators p.r.n. 6. We will follow cxr in few days 7. Taper steroids gradually. ALEXANDER BOWIE MD Sep 07, 2016 10:41
[2016-09-07] MEDS: OXYCODONE IR 5 MG TABLET. PEG SCH (10:42)
[2016-09-07] MEDS: methylPREDNISolone SOD SUCC PF 40 MG/ML VIAL. IV SCH ×2 (10:43→21:50)
[2016-09-07] MEDS: HEPARIN PF for SUB-Q USE 5,000 UNIT/0.5 ML VIAL. SQ SCH ×2 (10:45→22:02)
[2016-09-07 10:59] VITALS: BP 124/82
[2016-09-07] MEDS: VANCOMYCIN PER PHARMACY MC PRN (13:23)
--- NOTE | 2016-09-07 13:30 | PDOC1 ---
History and Physical Date of Admission Date of Admission DATE: 09/07/16 TIME: 13:26 Identification/Chief Complaint Chief Complaint "pneumonia" Source Source: Caregiver, Chart review, Patient History of Present Illness History of Present Illness 71 y.o male who has been a resident of [facility] [place]rs now admitted initially to private service attending over the weekend for HCAP. But pt transferred to hospitalist service today as DR. Gillespie does not go to [facility] anymore. Pt denies any complaints, has indwelling PEG and possibly gets bolus TF at [facility]. 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 ) GI: Constipation, GERD Psych: Anxiety, Depression Past Surgical History Past Surgical History: Total hip replacement (Left), Total knee replacement ( Right ), Tonsillectomy, Other (R rotator cuff repair, back surgeries x 3, PEG tube placement) Current Problem List Problem List Problems Medical Problems: (1) Cough Status: Acute (2) HCAP (healthcare-associated pneumonia) Status: Acute Problems: Current Medications Current Medications Current Medications Albuterol/ Ipratropium (Duoneb) 3 ml 1X ONCE NEB Last administered on 16:22; Start 09/04/16 at 16:00; Stop 09/04/16 at 16:01; Status DC Acetaminophen (Tylenol) 325 mg PRN Q4HRS PRN PO PAIN/TEMP; Start 09/04/16 at 21 :00; Stop 09/05/16 at 09:38; Status DC Alprazolam (Xanax) 0.5 mg PRN Q4HRS PRN PO ANXIETY / AGITATION Last administered on 09/04/16 21:33; Start 09/04/16 at 21:00; Stop 09/05/16 at 09:38 ; Status DC Atorvastatin Calcium (Lipitor) 40 mg HS PO Last administered on 09/04/16 21:33 ; Start 09/04/16 at 21:30; Stop 09/05/16 at 09:41; Status DC Baclofen (Lioresal) 10 mg TID PO Last administered on 09/05/16 08:55; Start at 21:00; Stop 09/05/16 at 09:41; Status DC Carvedilol (Coreg) 12.5 mg BIDWMEALS PO ; Start 09/05/16 at 08:00; Stop at 09:42; Status DC Diltiazem HCl (Cardizem 24hr Cd) 120 mg DAILY PO ; Start 09/05/16 at 09:00; Stop 09/05/16 at 09:42; Status DC Docusate Sodium (Colace) 100 mg PRN BID PRN PO CONSTIPATION; Start 09/04/16 at 21:00; Stop 09/05/16 at 09:50; Status DC Famotidine (Pepcid) 20 mg BID PO ; Start 09/04/16 at 21:30; Status Cancel Guaifenesin (Mucinex) 600 mg BID PO Last administered on 09/05/16 08:56; Start 09/04/16 at 21:30; Stop 09/05/16 at 09:45; Status DC Albuterol/ Ipratropium (Duoneb) 3 ml QID NEB Last administered on 09/07/16 11: 13; Start 09/04/16 at 21:00 Lactulose 20 gm PRN DAILY PRN PO CONSTIPATION; Start 09/04/16 at 21:00; Stop at 09:44; Status DC Metoclopramide HCl (Reglan) 5 mg TIDAC PO Last administered on 09/05/16 08:55 ; Start 09/05/16 at 07:30; Stop 09/05/16 at 09:52; Status DC Oxybutynin Chloride (Ditropan) 5 mg BID PO Last administered on 09/05/16 08:56 ; Start 09/04/16 at 21:30; Stop 09/05/16 at 09:13; Status DC Polyethylene Glycol (miraLAX PACKET) 17 gm PRN DAILY PRN PO CONSTIPATION; Start 09/04/16 at 21:00; Stop 09/05/16 at 09:47; Status DC Scopolamine (Transderm-Scop) 1 patch Q3DAYS TD Last administered on 09/05/16 08:57; Start 09/05/16 at 09:00 Thiamine HCl (Vitamin B-1) 100 mg DAILY PO Last administered on 09/05/16 08:56 ; Start 09/05/16 at 09:00; Stop 09/05/16 at 09:47; Status DC Buspirone HCl (Buspar) 15 mg TID PO Last administered on 09/05/16 08:56; Start 09/04/16 at 21:30; Stop 09/05/16 at 09:41; Status DC Duloxetine HCl (Cymbalta) 60 mg DAILY PO Last administered on 09/07/16 10:41; Start 09/05/16 at 09:00 Mirtazapine (Remeron) 30 mg QHS PEG Last administered on 09/06/16 21:13; Start 09/05/16 at 21:00 Ondansetron HCl (Zofran Odt) 4 mg PRN Q8HRS PRN PO NAUSEA; Start 09/04/16 at 21 :30; Stop 09/05/16 at 09:46; Status DC Oxycodone HCl (Roxicodone) 5 mg PRN Q6HRS PRN PO PAIN SEVERE; Start 09/04/16 at 21:30; Stop 09/05/16 at 09:13; Status DC Famotidine (Pepcid) 20 mg BID PO Last administered on 09/05/16 08:56; Start at 21:30; Stop 09/05/16 at 09:43; Status DC Rivaroxaban (Xarelto) 20 mg DAILYWSUP PO ; Start 09/05/16 at 17:00; Stop at 17:00; Status DC Non-Formulary Medication 100 mg DAILY PO ; Start 09/05/16 at 09:00; Status UNV Info 1 each 1 each PRN DAILY PRN MC SEE COMMENTS; Start 09/04/16 at 21:15; Stop 09/07/16 at 13:16; Status DC Piperacillin Sod/ Tazobactam Sod/ Sodium Chloride (Zosyn/Iv Sodium Chloride 0.9 % 100ml) 100 ml @ 200 mls/hr Q6HRS IV Last administered on 09/07/16 05:32; Start 09/05/16 at 00:30 Vancomycin HCl (Vanco Per Pharmacy) 1 each PRN DAILY PRN MC SEE COMMENTS Last administered on 09/07/16 13:23; Start 09/04/16 at 23:00 Ondansetron HCl (Zofran) 4 mg PRN Q8HRS PRN IV NAUSEA/VOMITING; Start 09/04/16 at 23:15; Stop 09/05/16 at 23:14; Status DC Albuterol/ Ipratropium (Duoneb) 3 ml RTQID NEB ; Start 09/05/16 at 08:00; Stop 09/05/16 at 08:00; Status DC Methylprednisolone Sodium Succinate 40 mg 40 mg Q12HR IV Last administered on 10:43; Start 09/05/16 at 09:00 Vancomycin HCl 1.5 gm/Sodium Chloride 500 ml @ 250 mls/hr 1X ONCE IV Last administered on 09/04/16 23:42; Start 09/04/16 at 23:15; Stop 09/05/16 at 01:14 ; Status DC Vancomycin HCl/ Sodium Chloride (Iv Sodium Chloride 0.9% 250ml) 250 ml @ 250 mls/hr Q12H IV Last administered on 09/07/16 01:46; Start 09/05/16 at 11:30 Vancomycin HCl 1 each 1X ONCE MC Last administered on 09/06/16 11:00; Start 09/06/16 at 11:00; Stop 09/06/16 at 11:01; Status DC Dextrose 25 gm STK-MED ONCE IV ; Start 09/05/16 at 07:52; Stop 09/05/16 at 07:53 ; Status DC Pneumococcal Polyvalent Vaccine (Pneumovax 23) 0.5 ml ONCE ONCE VAX IM Last administered on 09/06/16 10:06; Start 09/06/16 at 09:00; Stop 09/06/16 at 09:01 ; Status DC Influenza Virus Vaccine Quadrival (Fluarix Quad [id number] Syringe) 0.5 ml ONCE ONCE VAX IM Last administered on 09/06/16 10:02; Start 09/06/16 at 09:00; Stop 09/06/16 at 09:01; Status DC Oxybutynin Chloride (Ditropan) 10 mg BID PEG Last administered on 09/06/16 21: 13; Start 09/05/16 at 09:00 Oxycodone HCl (Roxicodone) 5 mg PRN Q4HRS PRN PEG PAIN SEVERE; Start 09/05/16 at 09:00 Rivaroxaban (Xarelto) 15 mg DAILYWSUP PO ; Start 09/05/16 at 17:00; Stop at 17:00; Status DC Polyethylene Glycol (miraLAX PACKET) 17 gm DAILY PEG Last administered on 10:40; Start 09/05/16 at 09:00 Oxycodone HCl 5 mg 5 mg DAILY08 PEG Last administered on 09/07/16 10:42; Start 09/05/16 at 10:00 Sodium Chloride (Iv Sodium Chloride 0.9% 1000ml Bag) 1,000 ml @ 100 mls/hr Q10H IV Last administered on 09/07/16 12:00; Start 09/05/16 at 10:00 Acetaminophen (Tylenol) 325 mg PRN Q4HRS PRN PEG PAIN/TEMP; Start 09/05/16 at 09:38 Alprazolam (Xanax) 0.5 mg PRN Q4HRS PRN PEG ANXIETY / AGITATION; Start at 09:38 Diltiazem HCl (Cardizem) 30 mg Q6HRS PEG Last administered on 09/07/16 02:25; Start 09/05/16 at 10:00 Atorvastatin Calcium (Lipitor) 40 mg HS PEG Last administered on 09/06/16 21: 13; Start 09/05/16 at 09:41 Baclofen (Lioresal) 10 mg TID PEG Last administered on 09/07/16 10:40; Start 09/05/16 at 09:41 Buspirone HCl (Buspar) 15 mg TID PEG Last administered on 09/07/16 10:41; Start 09/05/16 at 09:41 Carvedilol (Coreg) 12.5 mg BIDWMEALS PEG Last administered on 09/07/16 08:00; Start 09/05/16 at 09:42 Famotidine (Pepcid) 20 mg BID PEG Last administered on 09/07/16 10:41; Start 09/05/16 at 09:43 Lactulose 20 gm PRN DAILY PRN PEG CONSTIPATION; Start 09/05/16 at 09:44 Guaifenesin (Robitussin Dm) 20 ml Q6HRS PEG Last administered on 09/07/16 06: 43; Start 09/05/16 at 12:00 Ondansetron HCl (Zofran Odt) 4 mg PRN Q8HRS PRN PEG NAUSEA; Start 09/05/16 at 09:46 Polyethylene Glycol (miraLAX PACKET) 17 gm PRN DAILY PRN PEG CONSTIPATION; Start 09/05/16 at 09:47 Thiamine HCl (Vitamin B-1) 100 mg DAILY PEG Last administered on 09/07/16 10: 41; Start 09/05/16 at 09:47 Docusate Sodium (Colace Solution) 100 mg PRN BID PRN PEG CONSTIPATION; Start at 09:50 Metoclopramide HCl (Reglan) 5 mg TIDAC PEG Last administered on 09/07/16 10:40 ; Start 09/05/16 at 11:30 Heparin Sodium (Porcine) 5,000 unit Q12HR SQ Last administered on 09/07/16 10: 45; Start 09/05/16 at 11:00 Sulfacetamide Sodium (Sulf-10) 1 drop QID OS Last administered on 09/07/16 09: 00; Start 09/06/16 at 13:00 Dextrose 25 gm STK-MED ONCE IV ; Start 09/05/16 at 08:00; Stop 09/07/16 at 08:46 ; Status DC Acetaminophen (Tylenol) 500 mg PRN Q6HRS PRN PO MILD PAIN / TEMP; Start at 10:15 Ondansetron HCl (Zofran) 4 mg PRN Q6HRS PRN IV NAUSEA/VOMITING; Start 09/07/16 at 10:15 Active Scripts Active Reported Vitamin B-1 (Thiamine Mononitrate) 100 Mg Tablet 100 Mg PO DAILY Tylenol (Acetaminophen) 325 Mg Tablet 1 Tab PO PRN Q4HRS Reglan (Metoclopramide Hcl) 5 Mg Tablet 5 Mg PO TID Mucus ER (Guaifenesin) 600 Mg Tab.er.12h 600 Mg PO BID Famotidine 20 Mg Tablet 20 Mg PO BID Duoneb 0.5-3(2.5) Mg/3 Ml (Albuterol/Ipratropium) 3 Ml Ampul.neb 3 Ml NEB QID Xarelto (Rivaroxaban) 20 Mg Tablet 20 Mg PO DAILY Thiamine Hcl 100 Mg Tablet 100 Mg PO DAILY Transderm-Scop (Scopolamine) 1 Each Patch.td72 1 Patch TP Q3DAYS Ranitidine Hcl 150 Mg Capsule 1 Cap PO BID Oxycontin (Oxycodone HCl) 10 Mg Tab.er.12h 10 Mg PO BID Oxycodone Hcl 5 Mg Capsule 1 Cap PO PRN Q6HRS PRN Oxybutynin Chloride 5 Mg Tablet 1 Tab PO BID Ondansetron Hcl 4 Mg Tablet 1 Tab PO PRN Q8HRS PRN Mirtazapine 30 Mg Tablet 1 Tab PO QHS Miralax (Polyethylene Glycol 3350) 17 Gm Powd.pack 1 Pkt PO PRN DAILY PRN Lactulose 20 Gm/30 Ml Solution 20 Gm PO PRN DAILY PRN Docusate Sodium 100 Mg Capsule 1 Cap PO PRN BID PRN Diltiazem 24HR Cd (Diltiazem Hcl) 120 Mg Cap.er.24h 120 Mg PO DAILY Cymbalta (Duloxetine Hcl) 60 Mg Capsule.dr 60 Mg PO DAILY Coreg (Carvedilol) 12.5 Mg Tablet 1 Tab PO BID Buspirone Hcl 15 Mg Tablet 15 Mg PO TID Baclofen 10 Mg Tablet 10 Mg PO TID Atorvastatin Calcium 40 Mg Tablet 40 Mg PO HS Alprazolam 0.5 Mg Tablet 1 Tab PO PRN Q4HRS PRN Allergies Allergies: Coded Allergies: morphine (Verified Allergy, Intermediate, 05/12/16) I S O L A T I O N *CONTACT* (Verified Allergy, Unknown, 05/14/16) mrsa ROS Review of System limited,PO verbal output,appears weak but denies any sxs Physical Exam General: No acute distress HEENT: Atraumatic, PERRLA Lungs: Normal air movement, Other (dec BS) Heart: S1S2, RRR, no thrills Cardiovascular: S1 Breasts: Normal Abdomen: Normal bowel sounds, Soft, No tenderness, No hepatosplenomegaly, No masses, Other (indwelling PEG tube) Male Genitals Exam: normal genitalia PELVIC: Nml ext genitalia Extremities: No clubbing, No cyanosis, No edema, Normal pulses, No tenderness/ swelling Skin: No rashes, No breakdown, No significant lesion Neuro: Normal gait, Normal speech, Strength at 5/5 X4 ext, Normal tone, Sensation intact, Cranial nerves 3-12 NL, Reflexes 2+ Psych/Mental Status: Mental status NL, Mood NL Vitals Vitals Vital Signs Date Time Temp Pulse Resp B/P Pulse Ox O2 Delivery O2 Flow Rate FiO2 09/07/16 12:00 20 Nasal Cannula 2.0 09/07/16 11:14 96 09/07/16 10:59 97.9 50 124/82 97.9 Labs Labs Laboratory Tests Test 09/06/16 11:20 09/07/16 08:05 White Blood Count 13.3x10^3/uL (4.0-11.0) 14.9x10^3/uL (4.0-11.0) Red Blood Count 3.67x10^6/uL (4.30-5.70) 3.59x10^6/uL (4.30-5.70) Hemoglobin 12.0g/dL (13.0-17.5) 11.9g/dL (13.0-17.5) Hematocrit 36.5% (39.0-53.0) 36.1% (39.0-53.0) Mean Corpuscular Volume 100fL (79-100) 101fL (79-100) Mean Corpuscular Hemoglobin 33pg (25-35) 33pg (25-35) Mean Corpuscular Hemoglobin Concent 33g/dL (31-37) 33g/dL (31-37) Red Cell Distribution Width 14.0% (11.5-14.5) 13.8% (11.5-14.5) Platelet Count 185x10^3/uL (140-400) 180x10^3/uL (140-400) Neutrophils (%) (Auto) 94% (31-73) 95% (31-73) Lymphocytes (%) (Auto) 2% (24-48) 2% (24-48) Monocytes (%) (Auto) 5% (0-9) 3% (0-9) Eosinophils (%) (Auto) 0% (0-3) 0% (0-3) Basophils (%) (Auto) 0% (0-3) 0% (0-3) Neutrophils # (Auto) 12.5x10^3uL (1.8-7.7) 14.1x10^3uL (1.8-7.7) Lymphocytes # (Auto) 0.2x10^3/uL (1.0-4.8) 0.3x10^3/uL (1.0-4.8) Monocytes # (Auto) 0.6x10^3/uL (0.0-1.1) 0.4x10^3/uL (0.0-1.1) Eosinophils # (Auto) 0.0x10^3/uL (0.0-0.7) 0.0x10^3/uL (0.0-0.7) Basophils # (Auto) 0.0x10^3/uL (0.0-0.2) 0.0x10^3/uL (0.0-0.2) Sodium Level 144mmol/L (136-145) 146mmol/L (136-145) Potassium Level 3.7mmol/L (3.5-5.1) 3.9mmol/L (3.5-5.1) Chloride Level 109mmol/L (98-107) 111mmol/L (98-107) Carbon Dioxide Level 26mmol/L (21-32) 28mmol/L (21-32) Anion Gap 9 (6-14) 7 (6-14) Blood Urea Nitrogen 21mg/dL (8-26) 20mg/dL (8-26) Creatinine 0.7mg/dL (0.7-1.3) 0.7mg/dL (0.7-1.3) Estimated GFR (Cockcroft-Gault) 111.8 111.8 BUN/Creatinine Ratio 30 (6-20) 29 (6-20) Glucose Level 153mg/dL (70-99) 207mg/dL (70-99) Calcium Level 8.4mg/dL (8.5-10.1) 8.4mg/dL (8.5-10.1) Magnesium Level 2.2mg/dL (1.8-2.4) Total Bilirubin 0.5mg/dL (0.2-1.0) 0.4mg/dL (0.2-1.0) Aspartate Amino Transf (AST/SGOT) 39U/L (15-37) 81U/L (15-37) Alanine Aminotransferase (ALT/SGPT) 66U/L (16-63) 112U/L (16-63) Alkaline Phosphatase 59U/L (46-116) 57U/L (46-116) Total Protein 5.9g/dL (6.4-8.2) 6.2g/dL (6.4-8.2) Albumin 2.4g/dL (3.4-5.0) 2.2g/dL (3.4-5.0) Albumin/Globulin Ratio 0.7 (1.0-1.7) 0.6 (1.0-1.7) Vancomycin Level Trough 13.8mcg/mL (10.0-20.0) Vancomycin Last Dose Date 09/05/16 Vancomycin Last Dose Time 2330 Laboratory Tests Test 09/07/16 08:05 White Blood Count 14.9x10^3/uL (4.0-11.0) Red Blood Count 3.59x10^6/uL (4.30-5.70) Hemoglobin 11.9g/dL (13.0-17.5) Hematocrit 36.1% (39.0-53.0) Mean Corpuscular Volume 101fL (79-100) Mean Corpuscular Hemoglobin 33pg (25-35) Mean Corpuscular Hemoglobin Concent 33g/dL (31-37) Red Cell Distribution Width 13.8% (11.5-14.5) Platelet Count 180x10^3/uL (140-400) Neutrophils (%) (Auto) 95% (31-73) Lymphocytes (%) (Auto) 2% (24-48) Monocytes (%) (Auto) 3% (0-9) Eosinophils (%) (Auto) 0% (0-3) Basophils (%) (Auto) 0% (0-3) Neutrophils # (Auto) 14.1x10^3uL (1.8-7.7) Lymphocytes # (Auto) 0.3x10^3/uL (1.0-4.8) Monocytes # (Auto) 0.4x10^3/uL (0.0-1.1) Eosinophils # (Auto) 0.0x10^3/uL (0.0-0.7) Basophils # (Auto) 0.0x10^3/uL (0.0-0.2) Sodium Level 146mmol/L (136-145) Potassium Level 3.9mmol/L (3.5-5.1) Chloride Level 111mmol/L (98-107) Carbon Dioxide Level 28mmol/L (21-32) Anion Gap 7 (6-14) Blood Urea Nitrogen 20mg/dL (8-26) Creatinine 0.7mg/dL (0.7-1.3) Estimated GFR (Cockcroft-Gault) 111.8 BUN/Creatinine Ratio 29 (6-20) Glucose Level 207mg/dL (70-99) Calcium Level 8.4mg/dL (8.5-10.1) Total Bilirubin 0.4mg/dL (0.2-1.0) Aspartate Amino Transf (AST/SGOT) 81U/L (15-37) Alanine Aminotransferase (ALT/SGPT) 112U/L (16-63) Alkaline Phosphatase 57U/L (46-116) Total Protein 6.2g/dL (6.4-8.2) Albumin 2.2g/dL (3.4-5.0) Albumin/Globulin Ratio 0.6 (1.0-1.7) VTE Prophylaxis Ordered VTE Prophylaxis Devices: Yes VTE Pharmacological Prophylaxi: Yes (xarelto) Assessment/Plan Assessment/Plan 1. HCAP 2. SIRS no Sepsis 3. MOd PCM 4. [facility] resident 5. HTN, dyslipidemia, depression NOS - chronic stable PLAN: CPM Add nutrition consult for tF Alec pt and RN NATHALY SUBRAMANIAN MD Sep 07, 2016 13:30
[2016-09-07 14:36] VITALS: BP 120/79
[2016-09-07 20:41] VITALS: BP 132/73
[2016-09-07] MEDS: ATORVASTATIN CALCIUM 40 MG TABLET. PEG SCH (21:50)
[2016-09-07] MEDS: MIRTAZAPINE 15 MG TABLET PEG SCH (21:51)
[2016-09-07 22:45] VITALS: BP 149/84
[2016-09-08] MEDS: PIPERACILLIN/TAZOBACTAM 4.5 GM in IV NORMAL SALINE 100ML 100 ML IV SCH ×5 (01:09→23:40)
[2016-09-08] MEDS: GUAIFENESIN DM 200MG/20MG 10 ML SYRUP. PEG SCH ×5 (01:14→23:40)
[2016-09-08 03:10] VITALS: BP 162/95
[2016-09-08 05:15] LABS: BASO % 0 % (0-3); EOS % 0 % (0-3); HEMOGLOBIN 12.8 g/dL (13.0-17.5); LYMPH # 0.3 x10^3/uL (1.0-4.8); LYMPH % 2 % (24-48); MEAN CORPUSCULAR HEMOGLOBIN 33 pg (25-35); MEAN CORPUSCULAR HGB CONC 33 g/dL (31-37); MEAN CORPUSCULAR VOLUME 100 fL (79-100); MONO % 4 % (0-9); NEUT % 94 % (31-73); PLATELET COUNT 177 x10^3/uL (140-400); RED BLOOD COUNT 3.89 x10^6/uL (4.30-5.70); WHITE BLOOD COUNT 11.7 x10^3/uL (4.0-11.0)
[2016-09-08 05:42] LABS: ALBUMIN 2.3 g/dL (3.4-5.0); ALBUMIN/GLOBULIN RATIO 0.6 (1.0-1.7); CALCIUM 8.5 mg/dL (8.5-10.1); CREATININE 0.6 mg/dL (0.7-1.3); GFR 133.6; POTASSIUM 4.4 mmol/L (3.5-5.1); TOTAL BILIRUBIN 0.4 mg/dL (0.2-1.0); TOTAL PROTEIN 5.9 g/dL (6.4-8.2)
[2016-09-08] MEDS: DILTIAZEM HCL 30 MG TABLET PEG SCH ×5 (06:00→23:41)
[2016-09-08 07:00] VITALS: BP 136/82
[2016-09-08] MEDS: IPRATRPIUM/ALBUTEROL 0.5/2.5MG 3 ML NEBU. NEB SCH ×4 (08:36→19:41)
[2016-09-08] MEDS: METOCLOPRAMIDE HCL 10 MG/10 ML SOLUTION. PEG SCH ×3 (09:12→18:19)
[2016-09-08] MEDS: POLYETHYLENE GLYCOL 3350 17 GM PACKET. PEG SCH (09:12)
[2016-09-08] MEDS: methylPREDNISolone SOD SUCC PF 40 MG/ML VIAL. IV SCH ×2 (09:13→21:08)
[2016-09-08] MEDS: OXYBUTYNIN CHLORIDE 5 MG TABLET PEG SCH ×2 (09:13→21:08)
[2016-09-08] MEDS: DULOXETINE HCL 30 MG CAPSULE.DR. PO SCH (09:14)
[2016-09-08] MEDS: THIAMINE 100 MG TABLET. PEG SCH (09:14)
[2016-09-08] MEDS: OXYCODONE IR 5 MG TABLET. PEG SCH (09:15)
[2016-09-08] MEDS: CARVEDILOL 12.5 MG TABLET PEG SCH ×2 (09:15→18:19)
[2016-09-08] MEDS: FAMOTIDINE 20 MG TABLET. PEG SCH ×2 (09:16→21:09)
[2016-09-08] MEDS: busPIRone 10 MG TABLET. PEG SCH ×3 (09:16→21:09)
[2016-09-08] MEDS: BACLOFEN 10 MG TABLET PEG SCH ×3 (09:16→21:09)
[2016-09-08] MEDS: SCOPOLAMINE 1.5MG PATCH. TD SCH (09:17)
[2016-09-08] MEDS: SULFACETAMIDE 10% OPHTH SOLUTION 15ML BOTTLE. OS SCH ×4 (09:17→21:08)
[2016-09-08] MEDS: HEPARIN PF for SUB-Q USE 5,000 UNIT/0.5 ML VIAL. SQ SCH ×2 (09:19→21:21)
--- NOTE | 2016-09-08 09:55 | PDOC ---
PULMONARY PROGRESS NOTES Subjective no change Vitals Vital Signs Date Time Temp Pulse Resp B/P Pulse Ox O2 Delivery O2 Flow Rate FiO2 09/08/16 09:15 60 136/82 09/08/16 09:15 20 93 Room Air 09/08/16 07:00 97.7 2.0 97.7 Lungs: Other (decrease bs left base) Cardiovascular: S1 Abdomen: Soft Extremities: No Edema, Other (left upper contracture) Labs Laboratory Tests Test 09/06/16 11:20 09/07/16 08:05 09/08/16 04:50 White Blood Count 13.3x10^3/uL (4.0-11.0) 14.9x10^3/uL (4.0-11.0) 11.7x10^3/uL (4.0-11.0) Red Blood Count 3.67x10^6/uL (4.30-5.70) 3.59x10^6/uL (4.30-5.70) 3.89x10^6/uL (4.30-5.70) Hemoglobin 12.0g/dL (13.0-17.5) 11.9g/dL (13.0-17.5) 12.8g/dL (13.0-17.5) Hematocrit 36.5% (39.0-53.0) 36.1% (39.0-53.0) 39.0% (39.0-53.0) Mean Corpuscular Volume 100fL (79-100) 101fL (79-100) 100fL (79-100) Mean Corpuscular Hemoglobin 33pg (25-35) 33pg (25-35) 33pg (25-35) Mean Corpuscular Hemoglobin Concent 33g/dL (31-37) 33g/dL (31-37) 33g/dL (31-37) Red Cell Distribution Width 14.0% (11.5-14.5) 13.8% (11.5-14.5) 14.0% (11.5-14.5) Platelet Count 185x10^3/uL (140-400) 180x10^3/uL (140-400) 177x10^3/uL (140-400) Neutrophils (%) (Auto) 94% (31-73) 95% (31-73) 94% (31-73) Lymphocytes (%) (Auto) 2% (24-48) 2% (24-48) 2% (24-48) Monocytes (%) (Auto) 5% (0-9) 3% (0-9) 4% (0-9) Eosinophils (%) (Auto) 0% (0-3) 0% (0-3) 0% (0-3) Basophils (%) (Auto) 0% (0-3) 0% (0-3) 0% (0-3) Neutrophils # (Auto) 12.5x10^3uL (1.8-7.7) 14.1x10^3uL (1.8-7.7) 11.0x10^3uL (1.8-7.7) Lymphocytes # (Auto) 0.2x10^3/uL (1.0-4.8) 0.3x10^3/uL (1.0-4.8) 0.3x10^3/uL (1.0-4.8) Monocytes # (Auto) 0.6x10^3/uL (0.0-1.1) 0.4x10^3/uL (0.0-1.1) 0.4x10^3/uL (0.0-1.1) Eosinophils # (Auto) 0.0x10^3/uL (0.0-0.7) 0.0x10^3/uL (0.0-0.7) 0.0x10^3/uL (0.0-0.7) Basophils # (Auto) 0.0x10^3/uL (0.0-0.2) 0.0x10^3/uL (0.0-0.2) 0.0x10^3/uL (0.0-0.2) Sodium Level 144mmol/L (136-145) 146mmol/L (136-145) 147mmol/L (136-145) Potassium Level 3.7mmol/L (3.5-5.1) 3.9mmol/L (3.5-5.1) 4.4mmol/L (3.5-5.1) Chloride Level 109mmol/L (98-107) 111mmol/L (98-107) 112mmol/L (98-107) Carbon Dioxide Level 26mmol/L (21-32) 28mmol/L (21-32) 26mmol/L (21-32) Anion Gap 9 (6-14) 7 (6-14) 9 (6-14) Blood Urea Nitrogen 21mg/dL (8-26) 20mg/dL (8-26) 17mg/dL (8-26) Creatinine 0.7mg/dL (0.7-1.3) 0.7mg/dL (0.7-1.3) 0.6mg/dL (0.7-1.3) Estimated GFR (Cockcroft-Gault) 111.8 111.8 133.6 BUN/Creatinine Ratio 30 (6-20) 29 (6-20) 28 (6-20) Glucose Level 153mg/dL (70-99) 207mg/dL (70-99) 126mg/dL (70-99) Calcium Level 8.4mg/dL (8.5-10.1) 8.4mg/dL (8.5-10.1) 8.5mg/dL (8.5-10.1) Magnesium Level 2.2mg/dL (1.8-2.4) Total Bilirubin 0.5mg/dL (0.2-1.0) 0.4mg/dL (0.2-1.0) 0.4mg/dL (0.2-1.0) Aspartate Amino Transf (AST/SGOT) 39U/L (15-37) 81U/L (15-37) 118U/L (15-37) Alanine Aminotransferase (ALT/SGPT) 66U/L (16-63) 112U/L (16-63) 176U/L (16-63) Alkaline Phosphatase 59U/L (46-116) 57U/L (46-116) 54U/L (46-116) Total Protein 5.9g/dL (6.4-8.2) 6.2g/dL (6.4-8.2) 5.9g/dL (6.4-8.2) Albumin 2.4g/dL (3.4-5.0) 2.2g/dL (3.4-5.0) 2.3g/dL (3.4-5.0) Albumin/Globulin Ratio 0.7 (1.0-1.7) 0.6 (1.0-1.7) 0.6 (1.0-1.7) Vancomycin Level Trough 13.8mcg/mL (10.0-20.0) Vancomycin Last Dose Date 09/05/16 Vancomycin Last Dose Time 2330 Laboratory Tests Test 09/08/16 04:50 White Blood Count 11.7x10^3/uL (4.0-11.0) Red Blood Count 3.89x10^6/uL (4.30-5.70) Hemoglobin 12.8g/dL (13.0-17.5) Hematocrit 39.0% (39.0-53.0) Mean Corpuscular Volume 100fL (79-100) Mean Corpuscular Hemoglobin 33pg (25-35) Mean Corpuscular Hemoglobin Concent 33g/dL (31-37) Red Cell Distribution Width 14.0% (11.5-14.5) Platelet Count 177x10^3/uL (140-400) Neutrophils (%) (Auto) 94% (31-73) Lymphocytes (%) (Auto) 2% (24-48) Monocytes (%) (Auto) 4% (0-9) Eosinophils (%) (Auto) 0% (0-3) Basophils (%) (Auto) 0% (0-3) Neutrophils # (Auto) 11.0x10^3uL (1.8-7.7) Lymphocytes # (Auto) 0.3x10^3/uL (1.0-4.8) Monocytes # (Auto) 0.4x10^3/uL (0.0-1.1) Eosinophils # (Auto) 0.0x10^3/uL (0.0-0.7) Basophils # (Auto) 0.0x10^3/uL (0.0-0.2) Sodium Level 147mmol/L (136-145) Potassium Level 4.4mmol/L (3.5-5.1) Chloride Level 112mmol/L (98-107) Carbon Dioxide Level 26mmol/L (21-32) Anion Gap 9 (6-14) Blood Urea Nitrogen 17mg/dL (8-26) Creatinine 0.6mg/dL (0.7-1.3) Estimated GFR (Cockcroft-Gault) 133.6 BUN/Creatinine Ratio 28 (6-20) Glucose Level 126mg/dL (70-99) Calcium Level 8.5mg/dL (8.5-10.1) Total Bilirubin 0.4mg/dL (0.2-1.0) Aspartate Amino Transf (AST/SGOT) 118U/L (15-37) Alanine Aminotransferase (ALT/SGPT) 176U/L (16-63) Alkaline Phosphatase 54U/L (46-116) Total Protein 5.9g/dL (6.4-8.2) Albumin 2.3g/dL (3.4-5.0) Albumin/Globulin Ratio 0.6 (1.0-1.7) Medications Active Scripts Medications Dose Route/Sig Days Date Category Vitamin B-1 (Thiamine Mononitrate) 100 Mg Tablet 100 Mg PO DAILY 09/04/16 Reported Tylenol (Acetaminophen) 325 Mg Tablet 1 Tab PO PRN Q4HRS 09/04/16 Reported Reglan (Metoclopramide Hcl) 5 Mg Tablet 5 Mg PO TID 09/04/16 Reported Mucus ER (Guaifenesin) 600 Mg Tab.er.12h 600 Mg PO BID 09/04/16 Reported Famotidine 20 Mg Tablet 20 Mg PO BID 09/04/16 Reported Duoneb 0.5-3(2.5) Mg/3 Ml (Albuterol/Ipratropium) 3 Ml Ampul.neb 3 Ml NEB QID 09/04/16 Reported Xarelto (Rivaroxaban) 20 Mg Tablet 20 Mg PO DAILY 05/12/16 Reported Thiamine Hcl 100 Mg Tablet 100 Mg PO DAILY 05/12/16 Reported Transderm-Scop (Scopolamine) 1 Each Patch.td72 1 Patch TP Q3DAYS 05/12/16 Reported Ranitidine Hcl 150 Mg Capsule 1 Cap PO BID 05/12/16 Reported Oxycontin (Oxycodone HCl) 10 Mg Tab.er.12h 10 Mg PO BID 05/12/16 Reported Oxycodone Hcl 5 Mg Capsule 1 Cap PO PRN Q6HRS PRN 05/12/16 Reported Oxybutynin Chloride 5 Mg Tablet 1 Tab PO BID 05/12/16 Reported Ondansetron Hcl 4 Mg Tablet 1 Tab PO PRN Q8HRS PRN 05/12/16 Reported Mirtazapine 30 Mg Tablet 1 Tab PO QHS 05/12/16 Reported Miralax (Polyethylene Glycol 3350) 17 Gm Powd.pack 1 Pkt PO PRN DAILY PRN 05/12/16 Reported Lactulose 20 Gm/30 Ml Solution 20 Gm PO PRN DAILY PRN 05/12/16 Reported Docusate Sodium 100 Mg Capsule 1 Cap PO PRN BID PRN 05/12/16 Reported Diltiazem 24HR Cd (Diltiazem Hcl) 120 Mg Cap.er.24h 120 Mg PO DAILY 05/12/16 Reported Cymbalta (Duloxetine Hcl) 60 Mg Capsule.dr 60 Mg PO DAILY 05/12/16 Reported Coreg (Carvedilol) 12.5 Mg Tablet 1 Tab PO BID 05/12/16 Reported Buspirone Hcl 15 Mg Tablet 15 Mg PO TID 05/12/16 Reported Baclofen 10 Mg Tablet 10 Mg PO TID 05/12/16 Reported Atorvastatin Calcium 40 Mg Tablet 40 Mg PO HS 05/12/16 Reported Alprazolam 0.5 Mg Tablet 1 Tab PO PRN Q4HRS PRN 05/12/16 Reported Impression . 1. Acute hypoxic respiratory failure secondary gram pos and possible negative pneumonia 2. 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 3. History of dysphagia, status post PEG tube placement. 4. Leukocytosis secondary to pneumonia. 5. Influenza negative. Plan . 1. Keep head of the bed elevated at 30 degrees and watch for aspiration. 2. Continue tube feeds. 3. noncontrast CT chest c/w left lower lobe pneumonia 4. Continue with present antibiotics per ID 5. Bronchodilators p.r.n. TYRELL ADAM MD Sep 08, 2016 09:55
--- NOTE | 2016-09-08 10:02 | PDOC ---
PROGRESS NOTES Chief Complaint Chief Complaint cc: pneumonia A/P 1. Acute hypoxic respiratory failure : supplemental oxygen 2. HCAP: Zosyn and Zyvox, id following, follow cx 3. COPD exacerbation: iv solumedrol, duonebs, 4. HTN 5. AF chronic : OAC, Xarelto, Cardizem and coreg 6. 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 7. GERD 8. dysphagia with PEG : tube feeds, 9. chronic moderate PCL malnutrition 10. mildly elevated LFTs 11. major depression recurrent mild : 12. Chronic pain: continue current medications. 13. Prognosis : guarded. Vitals Vitals Vital Signs Date Time Temp Pulse Resp B/P Pulse Ox O2 Delivery O2 Flow Rate FiO2 09/08/16 09:15 60 136/82 09/08/16 09:15 20 93 Room Air 09/08/16 07:00 97.7 2.0 97.7 Physical Exam General: Alert, No acute distress Heart: Normal S1, Normal S2 Lungs: Other (decrease bs left base) Abdomen: Normal bowel sounds, Soft, No tenderness, No hepatosplenomegaly, No masses, Other (indwelling PEG tube) Extremities: No cyanosis, No edema, Normal pulses, No tenderness/swelling, Other (left upper extemity contractures present. ) Skin: No rashes, No breakdown, No significant lesion Labs LABS Laboratory Tests Test 09/08/16 04:50 White Blood Count 11.7x10^3/uL (4.0-11.0) Red Blood Count 3.89x10^6/uL (4.30-5.70) Hemoglobin 12.8g/dL (13.0-17.5) Hematocrit 39.0% (39.0-53.0) Mean Corpuscular Volume 100fL (79-100) Mean Corpuscular Hemoglobin 33pg (25-35) Mean Corpuscular Hemoglobin Concent 33g/dL (31-37) Red Cell Distribution Width 14.0% (11.5-14.5) Platelet Count 177x10^3/uL (140-400) Neutrophils (%) (Auto) 94% (31-73) Lymphocytes (%) (Auto) 2% (24-48) Monocytes (%) (Auto) 4% (0-9) Eosinophils (%) (Auto) 0% (0-3) Basophils (%) (Auto) 0% (0-3) Neutrophils # (Auto) 11.0x10^3uL (1.8-7.7) Lymphocytes # (Auto) 0.3x10^3/uL (1.0-4.8) Monocytes # (Auto) 0.4x10^3/uL (0.0-1.1) Eosinophils # (Auto) 0.0x10^3/uL (0.0-0.7) Basophils # (Auto) 0.0x10^3/uL (0.0-0.2) Sodium Level 147mmol/L (136-145) Potassium Level 4.4mmol/L (3.5-5.1) Chloride Level 112mmol/L (98-107) Carbon Dioxide Level 26mmol/L (21-32) Anion Gap 9 (6-14) Blood Urea Nitrogen 17mg/dL (8-26) Creatinine 0.6mg/dL (0.7-1.3) Estimated GFR (Cockcroft-Gault) 133.6 BUN/Creatinine Ratio 28 (6-20) Glucose Level 126mg/dL (70-99) Calcium Level 8.5mg/dL (8.5-10.1) Total Bilirubin 0.4mg/dL (0.2-1.0) Aspartate Amino Transf (AST/SGOT) 118U/L (15-37) Alanine Aminotransferase (ALT/SGPT) 176U/L (16-63) Alkaline Phosphatase 54U/L (46-116) Total Protein 5.9g/dL (6.4-8.2) Albumin 2.3g/dL (3.4-5.0) Albumin/Globulin Ratio 0.6 (1.0-1.7) Assessment and Plan Assessmemt and Plan Problems Medical Problems: (1) Cough Status: Acute (2) HCAP (healthcare-associated pneumonia) Status: Acute Problems: Comment Review of Relevant I have reviewed the following items sarai (where applicable) has been applied. Labs Laboratory Tests Test 09/06/16 11:20 09/07/16 08:05 09/08/16 04:50 White Blood Count 13.3x10^3/uL (4.0-11.0) 14.9x10^3/uL (4.0-11.0) 11.7x10^3/uL (4.0-11.0) Red Blood Count 3.67x10^6/uL (4.30-5.70) 3.59x10^6/uL (4.30-5.70) 3.89x10^6/uL (4.30-5.70) Hemoglobin 12.0g/dL (13.0-17.5) 11.9g/dL (13.0-17.5) 12.8g/dL (13.0-17.5) Hematocrit 36.5% (39.0-53.0) 36.1% (39.0-53.0) 39.0% (39.0-53.0) Mean Corpuscular Volume 100fL (79-100) 101fL (79-100) 100fL (79-100) Mean Corpuscular Hemoglobin 33pg (25-35) 33pg (25-35) 33pg (25-35) Mean Corpuscular Hemoglobin Concent 33g/dL (31-37) 33g/dL (31-37) 33g/dL (31-37) Red Cell Distribution Width 14.0% (11.5-14.5) 13.8% (11.5-14.5) 14.0% (11.5-14.5) Platelet Count 185x10^3/uL (140-400) 180x10^3/uL (140-400) 177x10^3/uL (140-400) Neutrophils (%) (Auto) 94% (31-73) 95% (31-73) 94% (31-73) Lymphocytes (%) (Auto) 2% (24-48) 2% (24-48) 2% (24-48) Monocytes (%) (Auto) 5% (0-9) 3% (0-9) 4% (0-9) Eosinophils (%) (Auto) 0% (0-3) 0% (0-3) 0% (0-3) Basophils (%) (Auto) 0% (0-3) 0% (0-3) 0% (0-3) Neutrophils # (Auto) 12.5x10^3uL (1.8-7.7) 14.1x10^3uL (1.8-7.7) 11.0x10^3uL (1.8-7.7) Lymphocytes # (Auto) 0.2x10^3/uL (1.0-4.8) 0.3x10^3/uL (1.0-4.8) 0.3x10^3/uL (1.0-4.8) Monocytes # (Auto) 0.6x10^3/uL (0.0-1.1) 0.4x10^3/uL (0.0-1.1) 0.4x10^3/uL (0.0-1.1) Eosinophils # (Auto) 0.0x10^3/uL (0.0-0.7) 0.0x10^3/uL (0.0-0.7) 0.0x10^3/uL (0.0-0.7) Basophils # (Auto) 0.0x10^3/uL (0.0-0.2) 0.0x10^3/uL (0.0-0.2) 0.0x10^3/uL (0.0-0.2) Sodium Level 144mmol/L (136-145) 146mmol/L (136-145) 147mmol/L (136-145) Potassium Level 3.7mmol/L (3.5-5.1) 3.9mmol/L (3.5-5.1) 4.4mmol/L (3.5-5.1) Chloride Level 109mmol/L (98-107) 111mmol/L (98-107) 112mmol/L (98-107) Carbon Dioxide Level 26mmol/L (21-32) 28mmol/L (21-32) 26mmol/L (21-32) Anion Gap 9 (6-14) 7 (6-14) 9 (6-14) Blood Urea Nitrogen 21mg/dL (8-26) 20mg/dL (8-26) 17mg/dL (8-26) Creatinine 0.7mg/dL (0.7-1.3) 0.7mg/dL (0.7-1.3) 0.6mg/dL (0.7-1.3) Estimated GFR (Cockcroft-Gault) 111.8 111.8 133.6 BUN/Creatinine Ratio 30 (6-20) 29 (6-20) 28 (6-20) Glucose Level 153mg/dL (70-99) 207mg/dL (70-99) 126mg/dL (70-99) Calcium Level 8.4mg/dL (8.5-10.1) 8.4mg/dL (8.5-10.1) 8.5mg/dL (8.5-10.1) Magnesium Level 2.2mg/dL (1.8-2.4) Total Bilirubin 0.5mg/dL (0.2-1.0) 0.4mg/dL (0.2-1.0) 0.4mg/dL (0.2-1.0) Aspartate Amino Transf (AST/SGOT) 39U/L (15-37) 81U/L (15-37) 118U/L (15-37) Alanine Aminotransferase (ALT/SGPT) 66U/L (16-63) 112U/L (16-63) 176U/L (16-63) Alkaline Phosphatase 59U/L (46-116) 57U/L (46-116) 54U/L (46-116) Total Protein 5.9g/dL (6.4-8.2) 6.2g/dL (6.4-8.2) 5.9g/dL (6.4-8.2) Albumin 2.4g/dL (3.4-5.0) 2.2g/dL (3.4-5.0) 2.3g/dL (3.4-5.0) Albumin/Globulin Ratio 0.7 (1.0-1.7) 0.6 (1.0-1.7) 0.6 (1.0-1.7) Vancomycin Level Trough 13.8mcg/mL (10.0-20.0) Vancomycin Last Dose Date 09/05/16 Vancomycin Last Dose Time 2330 Laboratory Tests Test 09/08/16 04:50 White Blood Count 11.7x10^3/uL (4.0-11.0) Red Blood Count 3.89x10^6/uL (4.30-5.70) Hemoglobin 12.8g/dL (13.0-17.5) Hematocrit 39.0% (39.0-53.0) Mean Corpuscular Volume 100fL (79-100) Mean Corpuscular Hemoglobin 33pg (25-35) Mean Corpuscular Hemoglobin Concent 33g/dL (31-37) Red Cell Distribution Width 14.0% (11.5-14.5) Platelet Count 177x10^3/uL (140-400) Neutrophils (%) (Auto) 94% (31-73) Lymphocytes (%) (Auto) 2% (24-48) Monocytes (%) (Auto) 4% (0-9) Eosinophils (%) (Auto) 0% (0-3) Basophils (%) (Auto) 0% (0-3) Neutrophils # (Auto) 11.0x10^3uL (1.8-7.7) Lymphocytes # (Auto) 0.3x10^3/uL (1.0-4.8) Monocytes # (Auto) 0.4x10^3/uL (0.0-1.1) Eosinophils # (Auto) 0.0x10^3/uL (0.0-0.7) Basophils # (Auto) 0.0x10^3/uL (0.0-0.2) Sodium Level 147mmol/L (136-145) Potassium Level 4.4mmol/L (3.5-5.1) Chloride Level 112mmol/L (98-107) Carbon Dioxide Level 26mmol/L (21-32) Anion Gap 9 (6-14) Blood Urea Nitrogen 17mg/dL (8-26) Creatinine 0.6mg/dL (0.7-1.3) Estimated GFR (Cockcroft-Gault) 133.6 BUN/Creatinine Ratio 28 (6-20) Glucose Level 126mg/dL (70-99) Calcium Level 8.5mg/dL (8.5-10.1) Total Bilirubin 0.4mg/dL (0.2-1.0) Aspartate Amino Transf (AST/SGOT) 118U/L (15-37) Alanine Aminotransferase (ALT/SGPT) 176U/L (16-63) Alkaline Phosphatase 54U/L (46-116) Total Protein 5.9g/dL (6.4-8.2) Albumin 2.3g/dL (3.4-5.0) Albumin/Globulin Ratio 0.6 (1.0-1.7) Medications Current Medications Albuterol/ Ipratropium (Duoneb) 3 ml 1X ONCE NEB Last administered on 16:22; Start 09/04/16 at 16:00; Stop 09/04/16 at 16:01; Status DC Acetaminophen (Tylenol) 325 mg PRN Q4HRS PRN PO PAIN/TEMP; Start 09/04/16 at 21 :00; Stop 09/05/16 at 09:38; Status DC Alprazolam (Xanax) 0.5 mg PRN Q4HRS PRN PO ANXIETY / AGITATION Last administered on 09/04/16 21:33; Start 09/04/16 at 21:00; Stop 09/05/16 at 09:38 ; Status DC Atorvastatin Calcium (Lipitor) 40 mg HS PO Last administered on 09/04/16 21:33 ; Start 09/04/16 at 21:30; Stop 09/05/16 at 09:41; Status DC Baclofen (Lioresal) 10 mg TID PO Last administered on 09/05/16 08:55; Start at 21:00; Stop 09/05/16 at 09:41; Status DC Carvedilol (Coreg) 12.5 mg BIDWMEALS PO ; Start 09/05/16 at 08:00; Stop at 09:42; Status DC Diltiazem HCl (Cardizem 24hr Cd) 120 mg DAILY PO ; Start 09/05/16 at 09:00; Stop 09/05/16 at 09:42; Status DC Docusate Sodium (Colace) 100 mg PRN BID PRN PO CONSTIPATION; Start 09/04/16 at 21:00; Stop 09/05/16 at 09:50; Status DC Famotidine (Pepcid) 20 mg BID PO ; Start 09/04/16 at 21:30; Status Cancel Guaifenesin (Mucinex) 600 mg BID PO Last administered on 09/05/16 08:56; Start 09/04/16 at 21:30; Stop 09/05/16 at 09:45; Status DC Albuterol/ Ipratropium (Duoneb) 3 ml QID NEB Last administered on 09/08/16 08: 36; Start 09/04/16 at 21:00 Lactulose 20 gm PRN DAILY PRN PO CONSTIPATION; Start 09/04/16 at 21:00; Stop at 09:44; Status DC Metoclopramide HCl (Reglan) 5 mg TIDAC PO Last administered on 09/05/16 08:55 ; Start 09/05/16 at 07:30; Stop 09/05/16 at 09:52; Status DC Oxybutynin Chloride (Ditropan) 5 mg BID PO Last administered on 09/05/16 08:56 ; Start 09/04/16 at 21:30; Stop 09/05/16 at 09:13; Status DC Polyethylene Glycol (miraLAX PACKET) 17 gm PRN DAILY PRN PO CONSTIPATION; Start 09/04/16 at 21:00; Stop 09/05/16 at 09:47; Status DC Scopolamine (Transderm-Scop) 1 patch Q3DAYS TD Last administered on 09/08/16 09:17; Start 09/05/16 at 09:00 Thiamine HCl (Vitamin B-1) 100 mg DAILY PO Last administered on 09/05/16 08:56 ; Start 09/05/16 at 09:00; Stop 09/05/16 at 09:47; Status DC Buspirone HCl (Buspar) 15 mg TID PO Last administered on 09/05/16 08:56; Start 09/04/16 at 21:30; Stop 09/05/16 at 09:41; Status DC Duloxetine HCl (Cymbalta) 60 mg DAILY PO Last administered on 09/08/16 09:14; Start 09/05/16 at 09:00 Mirtazapine (Remeron) 30 mg QHS PEG Last administered on 09/07/16 21:51; Start 09/05/16 at 21:00 Ondansetron HCl (Zofran Odt) 4 mg PRN Q8HRS PRN PO NAUSEA; Start 09/04/16 at 21 :30; Stop 09/05/16 at 09:46; Status DC Oxycodone HCl (Roxicodone) 5 mg PRN Q6HRS PRN PO PAIN SEVERE; Start 09/04/16 at 21:30; Stop 09/05/16 at 09:13; Status DC Famotidine (Pepcid) 20 mg BID PO Last administered on 09/05/16 08:56; Start at 21:30; Stop 09/05/16 at 09:43; Status DC Rivaroxaban (Xarelto) 20 mg DAILYWSUP PO ; Start 09/05/16 at 17:00; Stop at 17:00; Status DC Non-Formulary Medication 100 mg DAILY PO ; Start 09/05/16 at 09:00; Status UNV Info 1 each 1 each PRN DAILY PRN MC SEE COMMENTS; Start 09/04/16 at 21:15; Stop 09/07/16 at 13:16; Status DC Piperacillin Sod/ Tazobactam Sod/ Sodium Chloride (Zosyn/Iv Sodium Chloride 0.9 % 100ml) 100 ml @ 200 mls/hr Q6HRS IV Last administered on 09/08/16 06:14; Start 09/05/16 at 00:30 Vancomycin HCl (Vanco Per Pharmacy) 1 each PRN DAILY PRN MC SEE COMMENTS Last administered on 09/07/16 13:23; Start 09/04/16 at 23:00 Ondansetron HCl (Zofran) 4 mg PRN Q8HRS PRN IV NAUSEA/VOMITING; Start 09/04/16 at 23:15; Stop 09/05/16 at 23:14; Status DC Albuterol/ Ipratropium (Duoneb) 3 ml RTQID NEB ; Start 09/05/16 at 08:00; Stop 09/05/16 at 08:00; Status DC Methylprednisolone Sodium Succinate 40 mg 40 mg Q12HR IV Last administered on 09:13; Start 09/05/16 at 09:00 Vancomycin HCl 1.5 gm/Sodium Chloride 500 ml @ 250 mls/hr 1X ONCE IV Last administered on 09/04/16 23:42; Start 09/04/16 at 23:15; Stop 09/05/16 at 01:14 ; Status DC Vancomycin HCl/ Sodium Chloride (Iv Sodium Chloride 0.9% 250ml) 250 ml @ 250 mls/hr Q12H IV Last administered on 09/07/16 23:05; Start 09/05/16 at 11:30 Vancomycin HCl 1 each 1X ONCE MC Last administered on 09/06/16 11:00; Start 09/06/16 at 11:00; Stop 09/06/16 at 11:01; Status DC Dextrose 25 gm STK-MED ONCE IV ; Start 09/05/16 at 07:52; Stop 09/05/16 at 07:53 ; Status DC Pneumococcal Polyvalent Vaccine (Pneumovax 23) 0.5 ml ONCE ONCE VAX IM Last administered on 09/06/16 10:06; Start 09/06/16 at 09:00; Stop 09/06/16 at 09:01 ; Status DC Influenza Virus Vaccine Quadrival (Fluarix Quad [id number] Syringe) 0.5 ml ONCE ONCE VAX IM Last administered on 09/06/16 10:02; Start 09/06/16 at 09:00; Stop 09/06/16 at 09:01; Status DC Oxybutynin Chloride (Ditropan) 10 mg BID PEG Last administered on 09/08/16 09: 13; Start 09/05/16 at 09:00 Oxycodone HCl (Roxicodone) 5 mg PRN Q4HRS PRN PEG PAIN SEVERE; Start 09/05/16 at 09:00 Rivaroxaban (Xarelto) 15 mg DAILYWSUP PO ; Start 09/05/16 at 17:00; Stop at 17:00; Status DC Polyethylene Glycol (miraLAX PACKET) 17 gm DAILY PEG Last administered on 09:12; Start 09/05/16 at 09:00 Oxycodone HCl 5 mg 5 mg DAILY08 PEG Last administered on 09/08/16 09:15; Start 09/05/16 at 10:00 Sodium Chloride (Iv Sodium Chloride 0.9% 1000ml Bag) 1,000 ml @ 100 mls/hr Q10H IV Last administered on 09/07/16 22:27; Start 09/05/16 at 10:00 Acetaminophen (Tylenol) 325 mg PRN Q4HRS PRN PEG PAIN/TEMP Last administered on 09/08/16 09:12; Start 09/05/16 at 09:38 Alprazolam (Xanax) 0.5 mg PRN Q4HRS PRN PEG ANXIETY / AGITATION; Start at 09:38 Diltiazem HCl (Cardizem) 30 mg Q6HRS PEG Last administered on 09/07/16 02:25; Start 09/05/16 at 10:00 Atorvastatin Calcium (Lipitor) 40 mg HS PEG Last administered on 09/07/16 21: 50; Start 09/05/16 at 09:41 Baclofen (Lioresal) 10 mg TID PEG Last administered on 09/08/16 09:16; Start 09/05/16 at 09:41 Buspirone HCl (Buspar) 15 mg TID PEG Last administered on 09/08/16 09:16; Start 09/05/16 at 09:41 Carvedilol (Coreg) 12.5 mg BIDWMEALS PEG Last administered on 09/08/16 09:15; Start 09/05/16 at 09:42 Famotidine (Pepcid) 20 mg BID PEG Last administered on 09/08/16 09:16; Start 09/05/16 at 09:43 Lactulose 20 gm PRN DAILY PRN PEG CONSTIPATION; Start 09/05/16 at 09:44 Guaifenesin (Robitussin Dm) 20 ml Q6HRS PEG Last administered on 09/08/16 06: 14; Start 09/05/16 at 12:00 Ondansetron HCl (Zofran Odt) 4 mg PRN Q8HRS PRN PEG NAUSEA; Start 09/05/16 at 09:46 Polyethylene Glycol (miraLAX PACKET) 17 gm PRN DAILY PRN PEG CONSTIPATION; Start 09/05/16 at 09:47 Thiamine HCl (Vitamin B-1) 100 mg DAILY PEG Last administered on 09/08/16 09: 14; Start 09/05/16 at 09:47 Docusate Sodium (Colace Solution) 100 mg PRN BID PRN PEG CONSTIPATION Last administered on 09/08/16 09:12; Start 09/05/16 at 09:50 Metoclopramide HCl (Reglan) 5 mg TIDAC PEG Last administered on 09/08/16 09:12 ; Start 09/05/16 at 11:30 Heparin Sodium (Porcine) 5,000 unit Q12HR SQ Last administered on 09/08/16 09: 19; Start 09/05/16 at 11:00 Sulfacetamide Sodium (Sulf-10) 1 drop QID OS Last administered on 09/08/16 09: 17; Start 09/06/16 at 13:00 Dextrose 25 gm STK-MED ONCE IV ; Start 09/05/16 at 08:00; Stop 09/07/16 at 08:46 ; Status DC Acetaminophen (Tylenol) 500 mg PRN Q6HRS PRN PO MILD PAIN / TEMP; Start at 10:15 Ondansetron HCl (Zofran) 4 mg PRN Q6HRS PRN IV NAUSEA/VOMITING; Start 09/07/16 at 10:15 Active Scripts Active Reported Vitamin B-1 (Thiamine Mononitrate) 100 Mg Tablet 100 Mg PO DAILY Tylenol (Acetaminophen) 325 Mg Tablet 1 Tab PO PRN Q4HRS Reglan (Metoclopramide Hcl) 5 Mg Tablet 5 Mg PO TID Mucus ER (Guaifenesin) 600 Mg Tab.er.12h 600 Mg PO BID Famotidine 20 Mg Tablet 20 Mg PO BID Duoneb 0.5-3(2.5) Mg/3 Ml (Albuterol/Ipratropium) 3 Ml Ampul.neb 3 Ml NEB QID Xarelto (Rivaroxaban) 20 Mg Tablet 20 Mg PO DAILY Thiamine Hcl 100 Mg Tablet 100 Mg PO DAILY Transderm-Scop (Scopolamine) 1 Each Patch.td72 1 Patch TP Q3DAYS Ranitidine Hcl 150 Mg Capsule 1 Cap PO BID Oxycontin (Oxycodone HCl) 10 Mg Tab.er.12h 10 Mg PO BID Oxycodone Hcl 5 Mg Capsule 1 Cap PO PRN Q6HRS PRN Oxybutynin Chloride 5 Mg Tablet 1 Tab PO BID Ondansetron Hcl 4 Mg Tablet 1 Tab PO PRN Q8HRS PRN Mirtazapine 30 Mg Tablet 1 Tab PO QHS Miralax (Polyethylene Glycol 3350) 17 Gm Powd.pack 1 Pkt PO PRN DAILY PRN Lactulose 20 Gm/30 Ml Solution 20 Gm PO PRN DAILY PRN Docusate Sodium 100 Mg Capsule 1 Cap PO PRN BID PRN Diltiazem 24HR Cd (Diltiazem Hcl) 120 Mg Cap.er.24h 120 Mg PO DAILY Cymbalta (Duloxetine Hcl) 60 Mg Capsule.dr 60 Mg PO DAILY Coreg (Carvedilol) 12.5 Mg Tablet 1 Tab PO BID Buspirone Hcl 15 Mg Tablet 15 Mg PO TID Baclofen 10 Mg Tablet 10 Mg PO TID Atorvastatin Calcium 40 Mg Tablet 40 Mg PO HS Alprazolam 0.5 Mg Tablet 1 Tab PO PRN Q4HRS PRN Vitals/I & O Vital Sign - Last 24 Hours 09/07/16 09/07/16 09/07/16 09/07/16 10:42 10:59 11:14 12:00 Temp 97.9 97.9 Pulse 50 Resp 20 16 20 B/P 124/82 Pulse Ox 97 98 96 O2 Delivery Nasal Cannula Nasal Cannula Nasal Cannula Nasal Cannula O2 Flow Rate 2.0 2.0 1.0 2.0 09/07/16 09/07/16 09/07/16 09/07/16 12:00 14:36 14:53 17:00 Temp 97.7 97.7 Pulse 58 60 57 Resp 16 B/P 124/82 120/79 120/79 Pulse Ox 98 O2 Delivery Nasal Cannula Nasal Cannula O2 Flow Rate 2.0 1.0 09/07/16 09/07/16 09/07/16 09/07/16 17:20 19:44 20:05 20:41 Temp 97.0 97.0 Pulse 57 51 Resp 18 B/P 120/79 132/73 Pulse Ox 96 94 O2 Delivery Nasal Cannula Nasal Cannula Room Air O2 Flow Rate 1.0 1.0 09/07/16 09/08/16 09/08/16 09/08/16 22:45 00:00 03:10 07:00 Temp 97.0 97.0 97.7 97.0 97.0 97.7 Pulse 55 55 60 60 Resp 18 18 16 B/P 149/84 149/84 162/95 136/82 Pulse Ox 93 96 92 O2 Delivery Nasal Cannula Room Air Room Air O2 Flow Rate 1.0 2.0 09/08/16 09/08/16 09/08/16 08:36 09:15 09:15 Pulse 60 Resp 20 B/P 136/82 Pulse Ox 98 93 O2 Delivery Room Air Room Air Intake and Output 09/07/16 09/07/16 09/08/16 15:00 23:00 07:00 Intake Total 650 ml 2350 ml 2150 ml Balance 650 ml 2350 ml 2150 ml SHYAM LAMB MD Sep 08, 2016 10:02
--- NOTE | 2016-09-08 10:26 | PDOC ---
Infectious Disease Note Subjective Subjective States he wants his position changed. Some back pain No fever No increase O2 demands No diarrhea or vomiting reported Tube feedings, no residuals ROS ROS GEN: Denies fevers, chills, sweats/itching HEENT: Denies blurred vision, sore throat CV: Denies chest pain RESP: Denies shortness of air, cough GI: Denies n/v/d NEURO: Denies confusion, dizziness MSK: Denies weakness, joint pain/swelling Vital Sign Vital Signs Vital Signs Date Time Temp Pulse Resp B/P Pulse Ox O2 Delivery O2 Flow Rate FiO2 09/08/16 09:15 60 136/82 09/08/16 09:15 20 93 Room Air 09/08/16 07:00 97.7 2.0 97.7 Physical Exam PHYSICAL EXAM GENERAL: Propped up in bed, watching TV, withdrawn. Alert HEENT: Pupils equally round. Normal conjunctivae. Oral mucosa is pink and moist. Poor dentition. NECK: Supple. LUNGS: Clear to auscultation anteriorly, nonlabored CARDIOVASCULAR: Normal S1, S2. ABDOMEN: Nondistended. Bowel sounds are present, soft and nontender. PEG tube intact. EXTREMITIES: No gross edema or cyanosis. SKIN: Face and upper torso red. Warm to touch. NEUROLOGIC: Alert, cooperative. Labs Lab Laboratory Tests Test 09/08/16 04:50 White Blood Count 11.7x10^3/uL (4.0-11.0) Red Blood Count 3.89x10^6/uL (4.30-5.70) Hemoglobin 12.8g/dL (13.0-17.5) Hematocrit 39.0% (39.0-53.0) Mean Corpuscular Volume 100fL (79-100) Mean Corpuscular Hemoglobin 33pg (25-35) Mean Corpuscular Hemoglobin Concent 33g/dL (31-37) Red Cell Distribution Width 14.0% (11.5-14.5) Platelet Count 177x10^3/uL (140-400) Neutrophils (%) (Auto) 94% (31-73) Lymphocytes (%) (Auto) 2% (24-48) Monocytes (%) (Auto) 4% (0-9) Eosinophils (%) (Auto) 0% (0-3) Basophils (%) (Auto) 0% (0-3) Neutrophils # (Auto) 11.0x10^3uL (1.8-7.7) Lymphocytes # (Auto) 0.3x10^3/uL (1.0-4.8) Monocytes # (Auto) 0.4x10^3/uL (0.0-1.1) Eosinophils # (Auto) 0.0x10^3/uL (0.0-0.7) Basophils # (Auto) 0.0x10^3/uL (0.0-0.2) Sodium Level 147mmol/L (136-145) Potassium Level 4.4mmol/L (3.5-5.1) Chloride Level 112mmol/L (98-107) Carbon Dioxide Level 26mmol/L (21-32) Anion Gap 9 (6-14) Blood Urea Nitrogen 17mg/dL (8-26) Creatinine 0.6mg/dL (0.7-1.3) Estimated GFR (Cockcroft-Gault) 133.6 BUN/Creatinine Ratio 28 (6-20) Glucose Level 126mg/dL (70-99) Calcium Level 8.5mg/dL (8.5-10.1) Total Bilirubin 0.4mg/dL (0.2-1.0) Aspartate Amino Transf (AST/SGOT) 118U/L (15-37) Alanine Aminotransferase (ALT/SGPT) 176U/L (16-63) Alkaline Phosphatase 54U/L (46-116) Total Protein 5.9g/dL (6.4-8.2) Albumin 2.3g/dL (3.4-5.0) Albumin/Globulin Ratio 0.6 (1.0-1.7) Micro CT chest 09/05 IMPRESSION: 1. Moderate infiltrate in the left lower lobe and posterior aspect of the left upper lobe compatible with pneumonia. 2. Aortic atherosclerosis with mild dilatation of the ascending aorta. 3. Moderate coronary artery calcifications. Objective Assessment HCAP -Left on pneumonia ? harriet Leukocytosis - better Dysphagia COPD A-fib h/o CVA Plan Plan of Care Discont Vanc ? redmans Add Zyvox Cont Zosyn for now -Recent Levaquin, vantin & azithromycin On steroids Monitor labs Sputum culture Supportive care ZHENG MARTINEZ MD Sep 08, 2016 10:26
[2016-09-08 10:45] VITALS: BP 130/75
[2016-09-08] MEDS: IV NORMAL SALINE 1000ML BAG 1,000 ML IV SCH ×3 (11:56→23:40)
[2016-09-08] MEDS: LINEZOLID 600 MG TABLET PEG SCH ×2 (14:46→21:08)
[2016-09-08 15:00] VITALS: BP 125/78
[2016-09-08 19:00] VITALS: BP 114/67
[2016-09-08] MEDS: MIRTAZAPINE 15 MG TABLET PEG SCH (21:09)
[2016-09-08] MEDS: ATORVASTATIN CALCIUM 40 MG TABLET. PEG SCH (21:09)
[2016-09-08 23:00] VITALS: BP 142/83
[2016-09-09] VITALS (7 sets, daily range): BP systolic 95–151; BP diastolic 67–95
[2016-09-09] MEDS: DILTIAZEM HCL 30 MG TABLET PEG SCH ×3 (04:24→16:30)
[2016-09-09] MEDS: PIPERACILLIN/TAZOBACTAM 4.5 GM in IV NORMAL SALINE 100ML 100 ML IV SCH ×4 (05:06→20:50)
[2016-09-09] MEDS: GUAIFENESIN DM 200MG/20MG 10 ML SYRUP. PEG SCH ×4 (05:06→20:50)
[2016-09-09] MEDS: IPRATRPIUM/ALBUTEROL 0.5/2.5MG 3 ML NEBU. NEB SCH ×4 (07:16→19:09)
[2016-09-09] MEDS: DULOXETINE HCL 30 MG CAPSULE.DR. PO SCH (07:50)
[2016-09-09] MEDS: METOCLOPRAMIDE HCL 10 MG/10 ML SOLUTION. PEG SCH ×3 (07:50→16:29)
[2016-09-09] MEDS: SULFACETAMIDE 10% OPHTH SOLUTION 15ML BOTTLE. OS SCH ×4 (07:50→21:00)
[2016-09-09] MEDS: methylPREDNISolone SOD SUCC PF 40 MG/ML VIAL. IV SCH ×2 (07:50→20:49)
[2016-09-09] MEDS: POLYETHYLENE GLYCOL 3350 17 GM PACKET. PEG SCH (07:50)
[2016-09-09] MEDS: FAMOTIDINE 20 MG TABLET. PEG SCH ×2 (07:51→20:54)
[2016-09-09] MEDS: THIAMINE 100 MG TABLET. PEG SCH (07:51)
[2016-09-09] MEDS: busPIRone 10 MG TABLET. PEG SCH ×3 (07:51→20:53)
[2016-09-09] MEDS: OXYBUTYNIN CHLORIDE 5 MG TABLET PEG SCH ×2 (07:51→20:53)
[2016-09-09] MEDS: BACLOFEN 10 MG TABLET PEG SCH ×3 (07:51→20:54)
[2016-09-09] MEDS: LINEZOLID 600 MG TABLET PEG SCH ×2 (07:52→20:51)
[2016-09-09] MEDS: OXYCODONE IR 5 MG TABLET. PEG SCH ×2 (07:52→10:19)
[2016-09-09] MEDS: CARVEDILOL 12.5 MG TABLET PEG SCH ×2 (07:52→16:30)
[2016-09-09] MEDS: HEPARIN PF for SUB-Q USE 5,000 UNIT/0.5 ML VIAL. SQ SCH ×2 (08:17→21:12)
[2016-09-09] MEDS: OXYCODONE IR 5 MG TABLET. PEG PRN ×2 (10:21→20:51)
--- NOTE | 2016-09-09 10:22 | PDOC ---
PROGRESS NOTES Chief Complaint Chief Complaint cc: pneumonia A/P 1. Acute hypoxic respiratory failure : supplemental oxygen 2. HCAP: Zosyn and Zyvox, id following, follow cx 3. COPD exacerbation: iv solumedrol, duonebs, 4. HTN 5. AF chronic : OAC, Xarelto, Cardizem and coreg 6. 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 7. GERD 8. dysphagia with PEG : tube feeds, 9. chronic moderate PCL malnutrition 10. mildly elevated LFTs 11. major depression recurrent mild : 12. Chronic pain: continue current medications. 13. Prognosis : guarded. Vitals Vitals Vital Signs Date Time Temp Pulse Resp B/P Pulse Ox O2 Delivery O2 Flow Rate FiO2 09/09/16 10:21 18 94 Nasal Cannula 2.0 09/09/16 07:52 58 136/81 09/09/16 07:32 97.9 97.9 Physical Exam General: Alert, No acute distress Heart: Normal S1, Normal S2 Lungs: Other (decrease bs left base) Abdomen: Normal bowel sounds, Soft, No tenderness, No hepatosplenomegaly, No masses, Other (indwelling PEG tube) Extremities: No cyanosis, No edema, Normal pulses, No tenderness/swelling, Other (left upper extemity contractures present. ) Skin: No rashes, No breakdown, No significant lesion Assessment and Plan Assessmemt and Plan Problems Medical Problems: (1) Cough Status: Acute (2) HCAP (healthcare-associated pneumonia) Status: Acute Problems: Comment Review of Relevant I have reviewed the following items sarai (where applicable) has been applied. Labs Laboratory Tests Test 09/08/16 04:50 White Blood Count 11.7x10^3/uL (4.0-11.0) Red Blood Count 3.89x10^6/uL (4.30-5.70) Hemoglobin 12.8g/dL (13.0-17.5) Hematocrit 39.0% (39.0-53.0) Mean Corpuscular Volume 100fL (79-100) Mean Corpuscular Hemoglobin 33pg (25-35) Mean Corpuscular Hemoglobin Concent 33g/dL (31-37) Red Cell Distribution Width 14.0% (11.5-14.5) Platelet Count 177x10^3/uL (140-400) Neutrophils (%) (Auto) 94% (31-73) Lymphocytes (%) (Auto) 2% (24-48) Monocytes (%) (Auto) 4% (0-9) Eosinophils (%) (Auto) 0% (0-3) Basophils (%) (Auto) 0% (0-3) Neutrophils # (Auto) 11.0x10^3uL (1.8-7.7) Lymphocytes # (Auto) 0.3x10^3/uL (1.0-4.8) Monocytes # (Auto) 0.4x10^3/uL (0.0-1.1) Eosinophils # (Auto) 0.0x10^3/uL (0.0-0.7) Basophils # (Auto) 0.0x10^3/uL (0.0-0.2) Sodium Level 147mmol/L (136-145) Potassium Level 4.4mmol/L (3.5-5.1) Chloride Level 112mmol/L (98-107) Carbon Dioxide Level 26mmol/L (21-32) Anion Gap 9 (6-14) Blood Urea Nitrogen 17mg/dL (8-26) Creatinine 0.6mg/dL (0.7-1.3) Estimated GFR (Cockcroft-Gault) 133.6 BUN/Creatinine Ratio 28 (6-20) Glucose Level 126mg/dL (70-99) Calcium Level 8.5mg/dL (8.5-10.1) Total Bilirubin 0.4mg/dL (0.2-1.0) Aspartate Amino Transf (AST/SGOT) 118U/L (15-37) Alanine Aminotransferase (ALT/SGPT) 176U/L (16-63) Alkaline Phosphatase 54U/L (46-116) Total Protein 5.9g/dL (6.4-8.2) Albumin 2.3g/dL (3.4-5.0) Albumin/Globulin Ratio 0.6 (1.0-1.7) Medications Current Medications Albuterol/ Ipratropium (Duoneb) 3 ml 1X ONCE NEB Last administered on t 16:22; Start 09/04/16 at 16:00; Stop 09/04/16 at 16:01; Status DC Acetaminophen (Tylenol) 325 mg PRN Q4HRS PRN PO PAIN/TEMP; Start 09/04/16 at 21 :00; Stop 09/05/16 at 09:38; Status DC Alprazolam (Xanax) 0.5 mg PRN Q4HRS PRN PO ANXIETY / AGITATION Last administered on 09/04/16 21:33; Start 09/04/16 at 21:00; Stop 09/05/16 at 09:38 ; Status DC Atorvastatin Calcium (Lipitor) 40 mg HS PO Last administered on 09/04/16 21:33 ; Start 09/04/16 at 21:30; Stop 09/05/16 at 09:41; Status DC Baclofen (Lioresal) 10 mg TID PO Last administered on 09/05/16 08:55; Start at 21:00; Stop 09/05/16 at 09:41; Status DC Carvedilol (Coreg) 12.5 mg BIDWMEALS PO ; Start 09/05/16 at 08:00; Stop at 09:42; Status DC Diltiazem HCl (Cardizem 24hr Cd) 120 mg DAILY PO ; Start 09/05/16 at 09:00; Stop 09/05/16 at 09:42; Status DC Docusate Sodium (Colace) 100 mg PRN BID PRN PO CONSTIPATION; Start 09/04/16 at 21:00; Stop 09/05/16 at 09:50; Status DC Famotidine (Pepcid) 20 mg BID PO ; Start 09/04/16 at 21:30; Status Cancel Guaifenesin (Mucinex) 600 mg BID PO Last administered on 09/05/16 08:56; Start 09/04/16 at 21:30; Stop 09/05/16 at 09:45; Status DC Albuterol/ Ipratropium (Duoneb) 3 ml QID NEB Last administered on 09/09/16 07: 16; Start 09/04/16 at 21:00 Lactulose 20 gm PRN DAILY PRN PO CONSTIPATION; Start 09/04/16 at 21:00; Stop at 09:44; Status DC Metoclopramide HCl (Reglan) 5 mg TIDAC PO Last administered on 09/05/16 08:55 ; Start 09/05/16 at 07:30; Stop 09/05/16 at 09:52; Status DC Oxybutynin Chloride (Ditropan) 5 mg BID PO Last administered on 09/05/16 08:56 ; Start 09/04/16 at 21:30; Stop 09/05/16 at 09:13; Status DC Polyethylene Glycol (miraLAX PACKET) 17 gm PRN DAILY PRN PO CONSTIPATION; Start 09/04/16 at 21:00; Stop 09/05/16 at 09:47; Status DC Scopolamine (Transderm-Scop) 1 patch Q3DAYS TD Last administered on 09/08/16 09:17; Start 09/05/16 at 09:00 Thiamine HCl (Vitamin B-1) 100 mg DAILY PO Last administered on 09/05/16 08:56 ; Start 09/05/16 at 09:00; Stop 09/05/16 at 09:47; Status DC Buspirone HCl (Buspar) 15 mg TID PO Last administered on 09/05/16 08:56; Start 09/04/16 at 21:30; Stop 09/05/16 at 09:41; Status DC Duloxetine HCl (Cymbalta) 60 mg DAILY PO Last administered on 09/09/16 07:50; Start 09/05/16 at 09:00 Mirtazapine (Remeron) 30 mg QHS PEG Last administered on 09/08/16 21:09; Start 09/05/16 at 21:00 Ondansetron HCl (Zofran Odt) 4 mg PRN Q8HRS PRN PO NAUSEA; Start 09/04/16 at 21 :30; Stop 09/05/16 at 09:46; Status DC Oxycodone HCl (Roxicodone) 5 mg PRN Q6HRS PRN PO PAIN SEVERE; Start 09/04/16 at 21:30; Stop 09/05/16 at 09:13; Status DC Famotidine (Pepcid) 20 mg BID PO Last administered on 09/05/16 08:56; Start at 21:30; Stop 09/05/16 at 09:43; Status DC Rivaroxaban (Xarelto) 20 mg DAILYWSUP PO ; Start 09/05/16 at 17:00; Stop at 17:00; Status DC Non-Formulary Medication 100 mg DAILY PO ; Start 09/05/16 at 09:00; Status UNV Info 1 each 1 each PRN DAILY PRN MC SEE COMMENTS; Start 09/04/16 at 21:15; Stop 09/07/16 at 13:16; Status DC Piperacillin Sod/ Tazobactam Sod/ Sodium Chloride (Zosyn/Iv Sodium Chloride 0.9 % 100ml) 100 ml @ 200 mls/hr Q6HRS IV Last administered on 09/09/16 10:19; Start 09/05/16 at 00:30 Vancomycin HCl (Vanco Per Pharmacy) 1 each PRN DAILY PRN MC SEE COMMENTS Last administered on 09/07/16 13:23; Start 09/04/16 at 23:00; Stop 09/08/16 at 10:24 ; Status DC Ondansetron HCl (Zofran) 4 mg PRN Q8HRS PRN IV NAUSEA/VOMITING; Start 09/04/16 at 23:15; Stop 09/05/16 at 23:14; Status DC Albuterol/ Ipratropium (Duoneb) 3 ml RTQID NEB ; Start 09/05/16 at 08:00; Stop 09/05/16 at 08:00; Status DC Methylprednisolone Sodium Succinate 40 mg 40 mg Q12HR IV Last administered on 07:50; Start 09/05/16 at 09:00 Vancomycin HCl 1.5 gm/Sodium Chloride 500 ml @ 250 mls/hr 1X ONCE IV Last administered on 09/04/16 23:42; Start 09/04/16 at 23:15; Stop 09/05/16 at 01:14 ; Status DC Vancomycin HCl/ Sodium Chloride (Iv Sodium Chloride 0.9% 250ml) 250 ml @ 250 mls/hr Q12H IV Last administered on 09/07/16 23:05; Start 09/05/16 at 11:30; Stop 09/08/16 at 10:24; Status DC Vancomycin HCl 1 each 1X ONCE MC Last administered on 09/06/16 11:00; Start 09/06/16 at 11:00; Stop 09/06/16 at 11:01; Status DC Dextrose 25 gm STK-MED ONCE IV ; Start 09/05/16 at 07:52; Stop 09/05/16 at 07:53 ; Status DC Pneumococcal Polyvalent Vaccine (Pneumovax 23) 0.5 ml ONCE ONCE VAX IM Last administered on 09/06/16 10:06; Start 09/06/16 at 09:00; Stop 09/06/16 at 09:01 ; Status DC Influenza Virus Vaccine Quadrival (Fluarix Quad 2100-7250 Syringe) 0.5 ml ONCE ONCE VAX IM Last administered on 09/06/16 10:02; Start 09/06/16 at 09:00; Stop 09/06/16 at 09:01; Status DC Oxybutynin Chloride (Ditropan) 10 mg BID PEG Last administered on 09/09/16 07: 51; Start 09/05/16 at 09:00 Oxycodone HCl (Roxicodone) 5 mg PRN Q4HRS PRN PEG PAIN SEVERE Last administered on 09/09/16 10:21; Start 09/05/16 at 09:00 Rivaroxaban (Xarelto) 15 mg DAILYWSUP PO ; Start 09/05/16 at 17:00; Stop at 17:00; Status DC Polyethylene Glycol (miraLAX PACKET) 17 gm DAILY PEG Last administered on 07:50; Start 09/05/16 at 09:00 Oxycodone HCl 5 mg 5 mg DAILY08 PEG Last administered on 09/09/16 07:52; Start 09/05/16 at 10:00 Sodium Chloride (Iv Sodium Chloride 0.9% 1000ml Bag) 1,000 ml @ 100 mls/hr Q10H IV Last administered on 09/08/16 23:40; Start 09/05/16 at 10:00 Acetaminophen (Tylenol) 325 mg PRN Q4HRS PRN PEG PAIN/TEMP Last administered on 09/08/16 09:12; Start 09/05/16 at 09:38 Alprazolam (Xanax) 0.5 mg PRN Q4HRS PRN PEG ANXIETY / AGITATION; Start at 09:38 Diltiazem HCl (Cardizem) 30 mg Q6HRS PEG Last administered on 09/08/16 18:18; Start 09/05/16 at 10:00 Atorvastatin Calcium (Lipitor) 40 mg HS PEG Last administered on 09/08/16 21: 09; Start 09/05/16 at 09:41 Baclofen (Lioresal) 10 mg TID PEG Last administered on 09/09/16 07:51; Start at 09:41 Buspirone HCl (Buspar) 15 mg TID PEG Last administered on 09/09/16 07:51; Start 09/05/16 at 09:41 Carvedilol (Coreg) 12.5 mg BIDWMEALS PEG Last administered on 09/09/16 07:52; Start 09/05/16 at 09:42 Famotidine (Pepcid) 20 mg BID PEG Last administered on 09/09/16 07:51; Start at 09:43 Lactulose 20 gm PRN DAILY PRN PEG CONSTIPATION; Start 09/05/16 at 09:44 Guaifenesin (Robitussin Dm) 20 ml Q6HRS PEG Last administered on 09/09/16 05:06 ; Start 09/05/16 at 12:00 Ondansetron HCl (Zofran Odt) 4 mg PRN Q8HRS PRN PEG NAUSEA; Start 09/05/16 at 09:46 Polyethylene Glycol (miraLAX PACKET) 17 gm PRN DAILY PRN PEG CONSTIPATION; Start 09/05/16 at 09:47 Thiamine HCl (Vitamin B-1) 100 mg DAILY PEG Last administered on 09/09/16 07:51 ; Start 09/05/16 at 09:47 Docusate Sodium (Colace Solution) 100 mg PRN BID PRN PEG CONSTIPATION Last administered on 09/08/16 09:12; Start 09/05/16 at 09:50 Metoclopramide HCl (Reglan) 5 mg TIDAC PEG Last administered on 09/09/16 10:19 ; Start 09/05/16 at 11:30 Heparin Sodium (Porcine) 5,000 unit Q12HR SQ Last administered on 09/09/16 08: 17; Start 09/05/16 at 11:00 Sulfacetamide Sodium (Sulf-10) 1 drop QID OS Last administered on 09/09/16 07: 50; Start 09/06/16 at 13:00 Dextrose 25 gm STK-MED ONCE IV ; Start 09/05/16 at 08:00; Stop 09/07/16 at 08:46 ; Status DC Acetaminophen (Tylenol) 500 mg PRN Q6HRS PRN PO MILD PAIN / TEMP; Start at 10:15 Ondansetron HCl (Zofran) 4 mg PRN Q6HRS PRN IV NAUSEA/VOMITING; Start 09/07/16 at 10:15 Linezolid (Zyvox) 600 mg BID PEG Last administered on 09/09/16t 07:52; Start at 11:00 Active Scripts Active Reported Vitamin B-1 (Thiamine Mononitrate) 100 Mg Tablet 100 Mg PO DAILY Tylenol (Acetaminophen) 325 Mg Tablet 1 Tab PO PRN Q4HRS Reglan (Metoclopramide Hcl) 5 Mg Tablet 5 Mg PO TID Mucus ER (Guaifenesin) 600 Mg Tab.er.12h 600 Mg PO BID Famotidine 20 Mg Tablet 20 Mg PO BID Duoneb 0.5-3(2.5) Mg/3 Ml (Albuterol/Ipratropium) 3 Ml Ampul.neb 3 Ml NEB QID Xarelto (Rivaroxaban) 20 Mg Tablet 20 Mg PO DAILY Thiamine Hcl 100 Mg Tablet 100 Mg PO DAILY Transderm-Scop (Scopolamine) 1 Each Patch.td72 1 Patch TP Q3DAYS Ranitidine Hcl 150 Mg Capsule 1 Cap PO BID Oxycontin (Oxycodone HCl) 10 Mg Tab.er.12h 10 Mg PO BID Oxycodone Hcl 5 Mg Capsule 1 Cap PO PRN Q6HRS PRN Oxybutynin Chloride 5 Mg Tablet 1 Tab PO BID Ondansetron Hcl 4 Mg Tablet 1 Tab PO PRN Q8HRS PRN Mirtazapine 30 Mg Tablet 1 Tab PO QHS Miralax (Polyethylene Glycol 3350) 17 Gm Powd.pack 1 Pkt PO PRN DAILY PRN Lactulose 20 Gm/30 Ml Solution 20 Gm PO PRN DAILY PRN Docusate Sodium 100 Mg Capsule 1 Cap PO PRN BID PRN Diltiazem 24HR Cd (Diltiazem Hcl) 120 Mg Cap.er.24h 120 Mg PO DAILY Cymbalta (Duloxetine Hcl) 60 Mg Capsule.dr 60 Mg PO DAILY Coreg (Carvedilol) 12.5 Mg Tablet 1 Tab PO BID Buspirone Hcl 15 Mg Tablet 15 Mg PO TID Baclofen 10 Mg Tablet 10 Mg PO TID Atorvastatin Calcium 40 Mg Tablet 40 Mg PO HS Alprazolam 0.5 Mg Tablet 1 Tab PO PRN Q4HRS PRN Vitals/I & O Vital Sign - Last 24 Hours 09/08/16 09/08/16 09/08/16 09/08/16 10:45 11:56 12:31 15:00 Temp 97.7 97.8 97.7 97.8 Pulse 60 60 62 Resp 16 18 B/P 130/75 130/75 125/78 Pulse Ox 92 93 92 O2 Delivery Nasal Cannula Room Air Nasal Cannula O2 Flow Rate 2.0 2.0 09/08/16 09/08/16 09/08/16 09/08/16 16:27 18:18 18:19 19:00 Pulse 62 62 B/P 125/78 125/78 Pulse Ox 93 O2 Delivery Room Air Nasal Cannula O2 Flow Rate 2.0 09/08/16 09/08/16 09/08/16 09/08/16 19:00 19:43 23:00 23:41 Temp 98.3 97.9 98.3 97.9 Pulse 59 45 45 Resp 20 18 B/P 114/67 142/83 Pulse Ox 93 94 97 O2 Delivery Room Air 09/09/16 09/09/16 09/09/16 09/09/16 03:00 04:24 07:17 07:32 Temp 98.1 97.9 98.1 97.9 Pulse 54 55 58 Resp 18 18 B/P 148/86 136/81 Pulse Ox 93 92 94 O2 Delivery Room Air 09/09/16 09/09/16 09/09/16 09/09/16 07:52 07:52 08:00 08:52 Pulse 58 Resp 18 18 B/P 136/81 Pulse Ox 94 94 O2 Delivery Nasal Cannula Nasal Cannula Nasal Cannula O2 Flow Rate 2.0 2.0 2.0 09/09/16 10:21 Resp 18 Pulse Ox 94 O2 Delivery Nasal Cannula O2 Flow Rate 2.0 Intake and Output 09/08/16 09/08/16 09/09/16 15:00 23:00 07:00 Intake Total 900 ml 900 ml 3230 ml Balance 900 ml 900 ml 3230 ml SHYAM LAMB MD Sep 09, 2016 10:22
[2016-09-09] MEDS: IV NORMAL SALINE 1000ML BAG 1,000 ML IV SCH (10:46)
--- NOTE | 2016-09-09 11:16 | PDOC ---
Infectious Disease Note Subjective Subjective Dry No fever No increase O2 demands No diarrhea or vomiting reported Tube feedings, no residuals ROS ROS GEN: Denies fevers, chills, sweats HEENT: Denies blurred vision, sore throat CV: Denies chest pain RESP: Denies shortness of air, cough GI: Denies n/v/d NEURO: Denies confusion, dizziness MSK: Denies weakness, joint pain/swelling Vital Sign Vital Signs Vital Signs Date Time Temp Pulse Resp B/P Pulse Ox O2 Delivery O2 Flow Rate FiO2 09/09/16 10:50 56 95/67 09/09/16 10:37 98.0 20 94 98.0 09/09/16 10:21 Nasal Cannula 2.0 Physical Exam PHYSICAL EXAM GENERAL: Propped up in bed, watching TV, Alert HEENT: Pupils equally round. Normal conjunctivae. Oral mucosa is pink and moist. Poor dentition. NECK: Supple. LUNGS: Clear to auscultation anteriorly, nonlabored CARDIOVASCULAR: Normal S1, S2. ABDOMEN: Nondistended. Bowel sounds are present, soft and nontender. PEG tube intact. EXTREMITIES: No gross edema or cyanosis. SKIN: Face and upper torso redness has improved. Warm to touch. NEUROLOGIC: Alert, cooperative. Labs Micro CT chest 09/05 IMPRESSION: 1. Moderate infiltrate in the left lower lobe and posterior aspect of the left upper lobe compatible with pneumonia. 2. Aortic atherosclerosis with mild dilatation of the ascending aorta. 3. Moderate coronary artery calcifications. Objective Assessment HCAP -Left on pneumonia ? redmans -better Leukocytosis - better Dysphagia COPD A-fib h/o CVA Plan Plan of Care Cont Zyvox/Zosyn taper soon will need abx until (09/15) -Recent Levaquin, vantin & azithromycin On steroids Monitor labs Sputum culture Supportive care ZHENG MARTINEZ MD Sep 09, 2016 11:16
--- NOTE | 2016-09-09 17:32 | PDOC ---
PULMONARY PROGRESS NOTES Subjective no increase soa Vitals Vital Signs Date Time Temp Pulse Resp B/P Pulse Ox O2 Delivery O2 Flow Rate FiO2 09/09/16 16:30 63 147/85 09/09/16 15:25 94 Room Air 09/09/16 15:15 98.5 20 98.5 09/09/16 11:18 2.0 Lungs: Crackles Cardiovascular: S1 Abdomen: Soft Extremities: No Edema, Other (left upper contracture) Labs Laboratory Tests Test 09/08/16 04:50 White Blood Count 11.7x10^3/uL (4.0-11.0) Red Blood Count 3.89x10^6/uL (4.30-5.70) Hemoglobin 12.8g/dL (13.0-17.5) Hematocrit 39.0% (39.0-53.0) Mean Corpuscular Volume 100fL (79-100) Mean Corpuscular Hemoglobin 33pg (25-35) Mean Corpuscular Hemoglobin Concent 33g/dL (31-37) Red Cell Distribution Width 14.0% (11.5-14.5) Platelet Count 177x10^3/uL (140-400) Neutrophils (%) (Auto) 94% (31-73) Lymphocytes (%) (Auto) 2% (24-48) Monocytes (%) (Auto) 4% (0-9) Eosinophils (%) (Auto) 0% (0-3) Basophils (%) (Auto) 0% (0-3) Neutrophils # (Auto) 11.0x10^3uL (1.8-7.7) Lymphocytes # (Auto) 0.3x10^3/uL (1.0-4.8) Monocytes # (Auto) 0.4x10^3/uL (0.0-1.1) Eosinophils # (Auto) 0.0x10^3/uL (0.0-0.7) Basophils # (Auto) 0.0x10^3/uL (0.0-0.2) Sodium Level 147mmol/L (136-145) Potassium Level 4.4mmol/L (3.5-5.1) Chloride Level 112mmol/L (98-107) Carbon Dioxide Level 26mmol/L (21-32) Anion Gap 9 (6-14) Blood Urea Nitrogen 17mg/dL (8-26) Creatinine 0.6mg/dL (0.7-1.3) Estimated GFR (Cockcroft-Gault) 133.6 BUN/Creatinine Ratio 28 (6-20) Glucose Level 126mg/dL (70-99) Calcium Level 8.5mg/dL (8.5-10.1) Total Bilirubin 0.4mg/dL (0.2-1.0) Aspartate Amino Transf (AST/SGOT) 118U/L (15-37) Alanine Aminotransferase (ALT/SGPT) 176U/L (16-63) Alkaline Phosphatase 54U/L (46-116) Total Protein 5.9g/dL (6.4-8.2) Albumin 2.3g/dL (3.4-5.0) Albumin/Globulin Ratio 0.6 (1.0-1.7) Medications Active Scripts Medications Dose Route/Sig Days Date Category Vitamin B-1 (Thiamine Mononitrate) 100 Mg Tablet 100 Mg PO DAILY 09/04/16 Reported Tylenol (Acetaminophen) 325 Mg Tablet 1 Tab PO PRN Q4HRS 09/04/16 Reported Reglan (Metoclopramide Hcl) 5 Mg Tablet 5 Mg PO TID 09/04/16 Reported Mucus ER (Guaifenesin) 600 Mg Tab.er.12h 600 Mg PO BID 09/04/16 Reported Famotidine 20 Mg Tablet 20 Mg PO BID 09/04/16 Reported Duoneb 0.5-3(2.5) Mg/3 Ml (Albuterol/Ipratropium) 3 Ml Ampul.neb 3 Ml NEB QID 09/04/16 Reported Xarelto (Rivaroxaban) 20 Mg Tablet 20 Mg PO DAILY 05/12/16 Reported Thiamine Hcl 100 Mg Tablet 100 Mg PO DAILY 05/12/16 Reported Transderm-Scop (Scopolamine) 1 Each Patch.td72 1 Patch TP Q3DAYS 05/12/16 Reported Ranitidine Hcl 150 Mg Capsule 1 Cap PO BID 05/12/16 Reported Oxycontin (Oxycodone HCl) 10 Mg Tab.er.12h 10 Mg PO BID 05/12/16 Reported Oxycodone Hcl 5 Mg Capsule 1 Cap PO PRN Q6HRS PRN 05/12/16 Reported Oxybutynin Chloride 5 Mg Tablet 1 Tab PO BID 05/12/16 Reported Ondansetron Hcl 4 Mg Tablet 1 Tab PO PRN Q8HRS PRN 05/12/16 Reported Mirtazapine 30 Mg Tablet 1 Tab PO QHS 05/12/16 Reported Miralax (Polyethylene Glycol 3350) 17 Gm Powd.pack 1 Pkt PO PRN DAILY PRN 05/12/16 Reported Lactulose 20 Gm/30 Ml Solution 20 Gm PO PRN DAILY PRN 05/12/16 Reported Docusate Sodium 100 Mg Capsule 1 Cap PO PRN BID PRN 05/12/16 Reported Diltiazem 24HR Cd (Diltiazem Hcl) 120 Mg Cap.er.24h 120 Mg PO DAILY 05/12/16 Reported Cymbalta (Duloxetine Hcl) 60 Mg Capsule.dr 60 Mg PO DAILY 05/12/16 Reported Coreg (Carvedilol) 12.5 Mg Tablet 1 Tab PO BID 05/12/16 Reported Buspirone Hcl 15 Mg Tablet 15 Mg PO TID 05/12/16 Reported Baclofen 10 Mg Tablet 10 Mg PO TID 05/12/16 Reported Atorvastatin Calcium 40 Mg Tablet 40 Mg PO HS 05/12/16 Reported Alprazolam 0.5 Mg Tablet 1 Tab PO PRN Q4HRS PRN 05/12/16 Reported Impression . 1. Acute hypoxic respiratory failure secondary gram pos and possible negative pneumonia 2. 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 3. History of dysphagia, status post PEG tube placement. 4. Leukocytosis secondary to pneumonia. 5. Influenza negative. Plan . ID note appreciated hopefully transfer to SNU with IV antibx 1. Keep head of the bed elevated at 30 degrees and watch for aspiration. 2. Continue tube feeds. 3. noncontrast CT chest c/w left lower lobe pneumonia 4. Continue with present antibiotics per ID 5. Bronchodilators p.r.n. TYRELL ADAM MD Sep 09, 2016 17:32
[2016-09-09] MEDS: ATORVASTATIN CALCIUM 40 MG TABLET. PEG SCH (20:51)
[2016-09-09] MEDS: ALPRAZOLAM 0.5 MG TABLET PEG PRN (20:51)
[2016-09-09] MEDS: MIRTAZAPINE 15 MG TABLET PEG SCH (20:51)
[2016-09-10] MEDS: IV NORMAL SALINE 1000ML BAG 1,000 ML IV SCH ×3 (01:54→18:42)
[2016-09-10] MEDS: PIPERACILLIN/TAZOBACTAM 4.5 GM in IV NORMAL SALINE 100ML 100 ML IV SCH ×4 (04:52→20:53)
[2016-09-10] MEDS: GUAIFENESIN DM 200MG/20MG 10 ML SYRUP. PEG SCH ×4 (04:52→20:52)
[2016-09-10] MEDS: DILTIAZEM HCL 30 MG TABLET PEG SCH ×5 (05:41→20:52)
[2016-09-10 07:00] VITALS: BP 149/109
[2016-09-10] MEDS: IPRATRPIUM/ALBUTEROL 0.5/2.5MG 3 ML NEBU. NEB SCH ×4 (07:05→21:00)
[2016-09-10] MEDS: SULFACETAMIDE 10% OPHTH SOLUTION 15ML BOTTLE. OS SCH ×4 (09:00→21:00)
[2016-09-10] MEDS: methylPREDNISolone SOD SUCC PF 40 MG/ML VIAL. IV SCH ×2 (09:00→20:50)
[2016-09-10] MEDS: HEPARIN PF for SUB-Q USE 5,000 UNIT/0.5 ML VIAL. SQ SCH ×2 (09:00→21:08)
--- NOTE | 2016-09-10 09:23 | PDOC ---
Infectious Disease Note Subjective Subjective Occ cough. Wants hsi position changed Dry No fever No increase O2 demands No diarrhea or vomiting reported Tube feedings, no residuals ROS ROS GEN: Denies fevers, chills, sweats HEENT: Denies blurred vision, sore throat CV: Denies chest pain RESP: Denies shortness of air, cough GI: Denies n/v/d NEURO: Denies confusion, dizziness MSK: Denies weakness, joint pain/swelling Vital Sign Vital Signs Vital Signs Date Time Temp Pulse Resp B/P Pulse Ox O2 Delivery O2 Flow Rate FiO2 09/10/16 07:11 96 Nasal Cannula 1.0 09/10/16 07:00 97.9 67 18 149/109 97.9 Physical Exam PHYSICAL EXAM GENERAL: NAD, More Alert HEENT: PERRL, OC/OP -dry NECK: Supple, no JVD, no LN LUNGS: Clear HEART: S1S2, no gallop, no murmur ABD: Soft, NT, no organomegaly, no rebound, PEG EXT: No edema, no cyanosis. some contractions LINE LEAD: Alert, oriented, no focal neurologic deficit SKIN: No rash IV: ok Labs Micro CT chest 09/05 IMPRESSION: 1. Moderate infiltrate in the left lower lobe and posterior aspect of the left upper lobe compatible with pneumonia. 2. Aortic atherosclerosis with mild dilatation of the ascending aorta. 3. Moderate coronary artery calcifications. Objective Assessment HCAP -Left on pneumonia ? redmans -better Leukocytosis - better Dysphagia COPD A-fib h/o CVA Plan Plan of Care Cont Zyvox/Zosyn will need abx until (09/15) Ok to transfer ZHENG MARTINEZ MD Sep 10, 2016 09:22
[2016-09-10] MEDS: THIAMINE 100 MG TABLET. PEG SCH (10:21)
[2016-09-10] MEDS: LINEZOLID 600 MG TABLET PEG SCH ×2 (10:21→20:50)
[2016-09-10] MEDS: OXYCODONE IR 5 MG TABLET. PEG SCH (10:21)
[2016-09-10] MEDS: BACLOFEN 10 MG TABLET PEG SCH ×3 (10:21→20:51)
[2016-09-10] MEDS: busPIRone 10 MG TABLET. PEG SCH ×3 (10:21→20:51)
[2016-09-10] MEDS: DULOXETINE HCL 30 MG CAPSULE.DR. PO SCH (10:22)
[2016-09-10] MEDS: CARVEDILOL 12.5 MG TABLET PEG SCH ×2 (10:22→17:38)
[2016-09-10] MEDS: FAMOTIDINE 20 MG TABLET. PEG SCH ×2 (10:22→20:51)
[2016-09-10] MEDS: OXYBUTYNIN CHLORIDE 5 MG TABLET PEG SCH ×2 (10:22→20:51)
[2016-09-10] MEDS: METOCLOPRAMIDE HCL 10 MG/10 ML SOLUTION. PEG SCH ×3 (10:23→17:37)
[2016-09-10] MEDS: POLYETHYLENE GLYCOL 3350 17 GM PACKET. PEG SCH (10:26)
[2016-09-10 10:41] VITALS: BP 130/80
--- NOTE | 2016-09-10 13:14 | PDOC ---
PROGRESS NOTES Chief Complaint Chief Complaint cc: pneumonia A/P 1. Acute hypoxic respiratory failure : supplemental oxygen , ? CT chest per pulmonology, appreciated recommendations. 2. HCAP: Zosyn and Zyvox, id following, follow cx , anticipated DC if SW could able to arrange for IV abx. 3. COPD exacerbation: iv solumedrol, duonebs, 4. HTN 5. AF chronic : OAC, Xarelto, Cardizem and coreg 6. 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 7. GERD 8. dysphagia with PEG : tube feeds, 9. chronic moderate PCL malnutrition 10. mildly elevated LFTs 11. major depression recurrent mild : 12. Chronic pain: continue current medications. 13. Prognosis : guarded. Vitals Vitals Vital Signs Date Time Temp Pulse Resp B/P Pulse Ox O2 Delivery O2 Flow Rate FiO2 09/10/16 13:01 68 130/80 09/10/16 11:02 Nasal Cannula 1.0 09/10/16 10:41 97.8 18 93 97.8 Physical Exam General: Alert, No acute distress Heart: Normal S1, Normal S2 Lungs: Clear, Other (anterior) Abdomen: Normal bowel sounds, Soft, No tenderness, No hepatosplenomegaly, No masses, Other (indwelling PEG tube) Extremities: No cyanosis, No edema, Normal pulses, No tenderness/swelling, Other (left upper extemity contractures present. ) Skin: No rashes, No breakdown, No significant lesion Assessment and Plan Assessmemt and Plan Problems Medical Problems: (1) Cough Status: Acute (2) HCAP (healthcare-associated pneumonia) Status: Acute Problems: Comment Review of Relevant I have reviewed the following items sarai (where applicable) has been applied. Medications Current Medications Albuterol/ Ipratropium (Duoneb) 3 ml 1X ONCE NEB Last administered on t 16:22; Start 09/04/16 at 16:00; Stop 09/04/16 at 16:01; Status DC Acetaminophen (Tylenol) 325 mg PRN Q4HRS PRN PO PAIN/TEMP; Start 09/04/16 at 21 :00; Stop 09/05/16 at 09:38; Status DC Alprazolam (Xanax) 0.5 mg PRN Q4HRS PRN PO ANXIETY / AGITATION Last administered on 09/04/16 21:33; Start 09/04/16 at 21:00; Stop 09/05/16 at 09:38 ; Status DC Atorvastatin Calcium (Lipitor) 40 mg HS PO Last administered on 09/04/16 21:33 ; Start 09/04/16 at 21:30; Stop 09/05/16 at 09:41; Status DC Baclofen (Lioresal) 10 mg TID PO Last administered on 09/05/16 08:55; Start at 21:00; Stop 09/05/16 at 09:41; Status DC Carvedilol (Coreg) 12.5 mg BIDWMEALS PO ; Start 09/05/16 at 08:00; Stop at 09:42; Status DC Diltiazem HCl (Cardizem 24hr Cd) 120 mg DAILY PO ; Start 09/05/16 at 09:00; Stop 09/05/16 at 09:42; Status DC Docusate Sodium (Colace) 100 mg PRN BID PRN PO CONSTIPATION; Start 09/04/16 at 21:00; Stop 09/05/16 at 09:50; Status DC Famotidine (Pepcid) 20 mg BID PO ; Start 09/04/16 at 21:30; Status Cancel Guaifenesin (Mucinex) 600 mg BID PO Last administered on 09/05/16 08:56; Start 09/04/16 at 21:30; Stop 09/05/16 at 09:45; Status DC Albuterol/ Ipratropium (Duoneb) 3 ml QID NEB Last administered on 09/10/16 10: 59; Start 09/04/16 at 21:00 Lactulose 20 gm PRN DAILY PRN PO CONSTIPATION; Start 09/04/16 at 21:00; Stop at 09:44; Status DC Metoclopramide HCl (Reglan) 5 mg TIDAC PO Last administered on 09/05/16 08:55 ; Start 09/05/16 at 07:30; Stop 09/05/16 at 09:52; Status DC Oxybutynin Chloride (Ditropan) 5 mg BID PO Last administered on 09/05/16 08:56 ; Start 09/04/16 at 21:30; Stop 09/05/16 at 09:13; Status DC Polyethylene Glycol (miraLAX PACKET) 17 gm PRN DAILY PRN PO CONSTIPATION; Start 09/04/16 at 21:00; Stop 09/05/16 at 09:47; Status DC Scopolamine (Transderm-Scop) 1 patch Q3DAYS TD Last administered on 09/08/16 09:17; Start 09/05/16 at 09:00 Thiamine HCl (Vitamin B-1) 100 mg DAILY PO Last administered on 09/05/16 08:56 ; Start 09/05/16 at 09:00; Stop 09/05/16 at 09:47; Status DC Buspirone HCl (Buspar) 15 mg TID PO Last administered on 09/05/16 08:56; Start 09/04/16 at 21:30; Stop 09/05/16 at 09:41; Status DC Duloxetine HCl (Cymbalta) 60 mg DAILY PO Last administered on 09/10/16 10:22; Start 09/05/16 at 09:00 Mirtazapine (Remeron) 30 mg QHS PEG Last administered on 09/09/16 20:51; Start 09/05/16 at 21:00 Ondansetron HCl (Zofran Odt) 4 mg PRN Q8HRS PRN PO NAUSEA; Start 09/04/16 at 21 :30; Stop 09/05/16 at 09:46; Status DC Oxycodone HCl (Roxicodone) 5 mg PRN Q6HRS PRN PO PAIN SEVERE; Start 09/04/16 at 21:30; Stop 09/05/16 at 09:13; Status DC Famotidine (Pepcid) 20 mg BID PO Last administered on 09/05/16 08:56; Start at 21:30; Stop 09/05/16 at 09:43; Status DC Rivaroxaban (Xarelto) 20 mg DAILYWSUP PO ; Start 09/05/16 at 17:00; Stop at 17:00; Status DC Non-Formulary Medication 100 mg DAILY PO ; Start 09/05/16 at 09:00; Status UNV Info 1 each 1 each PRN DAILY PRN MC SEE COMMENTS; Start 09/04/16 at 21:15; Stop 09/07/16 at 13:16; Status DC Piperacillin Sod/ Tazobactam Sod/ Sodium Chloride (Zosyn/Iv Sodium Chloride 0.9 % 100ml) 100 ml @ 200 mls/hr Q6HRS IV Last administered on 09/10/16 13:01; Start 09/05/16 at 00:30 Vancomycin HCl (Vanco Per Pharmacy) 1 each PRN DAILY PRN MC SEE COMMENTS Last administered on 09/07/16 13:23; Start 09/04/16 at 23:00; Stop 09/08/16 at 10:24 ; Status DC Ondansetron HCl (Zofran) 4 mg PRN Q8HRS PRN IV NAUSEA/VOMITING; Start 09/04/16 at 23:15; Stop 09/05/16 at 23:14; Status DC Albuterol/ Ipratropium (Duoneb) 3 ml RTQID NEB ; Start 09/05/16 at 08:00; Stop 09/05/16 at 08:00; Status DC Methylprednisolone Sodium Succinate 40 mg 40 mg Q12HR IV Last administered on 09:00; Start 09/05/16 at 09:00 Vancomycin HCl 1.5 gm/Sodium Chloride 500 ml @ 250 mls/hr 1X ONCE IV Last administered on 09/04/16 23:42; Start 09/04/16 at 23:15; Stop 09/05/16 at 01:14 ; Status DC Vancomycin HCl/ Sodium Chloride (Iv Sodium Chloride 0.9% 250ml) 250 ml @ 250 mls/hr Q12H IV Last administered on 09/07/16 23:05; Start 09/05/16 at 11:30; Stop 09/08/16 at 10:24; Status DC Vancomycin HCl 1 each 1X ONCE MC Last administered on 09/06/16 11:00; Start 09/06/16 at 11:00; Stop 09/06/16 at 11:01; Status DC Dextrose 25 gm STK-MED ONCE IV ; Start 09/05/16 at 07:52; Stop 09/05/16 at 07:53 ; Status DC Pneumococcal Polyvalent Vaccine (Pneumovax 23) 0.5 ml ONCE ONCE VAX IM Last administered on 09/06/16 10:06; Start 09/06/16 at 09:00; Stop 09/06/16 at 09:01 ; Status DC Influenza Virus Vaccine Quadrival (Fluarix Quad 1001-8209 Syringe) 0.5 ml ONCE ONCE VAX IM Last administered on 09/06/16 10:02; Start 09/06/16 at 09:00; Stop 09/06/16 at 09:01; Status DC Oxybutynin Chloride (Ditropan) 10 mg BID PEG Last administered on 09/10/16 10: 22; Start 09/05/16 at 09:00 Oxycodone HCl (Roxicodone) 5 mg PRN Q4HRS PRN PEG PAIN SEVERE Last administered on 09/09/16 20:51; Start 09/05/16 at 09:00 Rivaroxaban (Xarelto) 15 mg DAILYWSUP PO ; Start 09/05/16 at 17:00; Stop at 17:00; Status DC Polyethylene Glycol (miraLAX PACKET) 17 gm DAILY PEG Last administered on 10:26; Start 09/05/16 at 09:00 Oxycodone HCl 5 mg 5 mg DAILY08 PEG Last administered on 09/10/16 10:21; Start 09/05/16 at 10:00 Sodium Chloride (Iv Sodium Chloride 0.9% 1000ml Bag) 1,000 ml @ 100 mls/hr Q10H IV Last administered on 09/10/16 01:54; Start 09/05/16 at 10:00 Acetaminophen (Tylenol) 325 mg PRN Q4HRS PRN PEG PAIN/TEMP Last administered on 09/08/16 09:12; Start 09/05/16 at 09:38 Alprazolam (Xanax) 0.5 mg PRN Q4HRS PRN PEG ANXIETY / AGITATION Last administered on 09/09/16 20:51; Start 09/05/16 at 09:38 Diltiazem HCl (Cardizem) 30 mg Q6HRS PEG Last administered on 09/10/16 13:01; Start 09/05/16 at 10:00 Atorvastatin Calcium (Lipitor) 40 mg HS PEG Last administered on 09/09/16 20:51 ; Start 09/05/16 at 09:41 Baclofen (Lioresal) 10 mg TID PEG Last administered on 09/10/16 13:01; Start at 09:41 Buspirone HCl (Buspar) 15 mg TID PEG Last administered on 09/10/16 13:02; Start 09/05/16 at 09:41 Carvedilol (Coreg) 12.5 mg BIDWMEALS PEG Last administered on 09/10/16 10:22; Start 09/05/16 at 09:42 Famotidine (Pepcid) 20 mg BID PEG Last administered on 09/10/16 10:22; Start at 09:43 Lactulose 20 gm PRN DAILY PRN PEG CONSTIPATION; Start 09/05/16 at 09:44 Guaifenesin (Robitussin Dm) 20 ml Q6HRS PEG Last administered on 09/10/16 13:01 ; Start 09/05/16 at 12:00 Ondansetron HCl (Zofran Odt) 4 mg PRN Q8HRS PRN PEG NAUSEA; Start 09/05/16 at 09:46 Polyethylene Glycol (miraLAX PACKET) 17 gm PRN DAILY PRN PEG CONSTIPATION; Start 09/05/16 at 09:47 Thiamine HCl (Vitamin B-1) 100 mg DAILY PEG Last administered on 09/10/16 10:21 ; Start 09/05/16 at 09:47 Docusate Sodium (Colace Solution) 100 mg PRN BID PRN PEG CONSTIPATION Last administered on 09/08/16 09:12; Start 09/05/16 at 09:50 Metoclopramide HCl (Reglan) 5 mg TIDAC PEG Last administered on 09/10/16 13:02 ; Start 09/05/16 at 11:30 Heparin Sodium (Porcine) 5,000 unit Q12HR SQ Last administered on 09/09/16 21: 12; Start 09/05/16 at 11:00 Sulfacetamide Sodium (Sulf-10) 1 drop QID OS Last administered on 09/10/16 13: 02; Start 09/06/16 at 13:00 Dextrose 25 gm STK-MED ONCE IV ; Start 09/05/16 at 08:00; Stop 09/07/16 at 08:46 ; Status DC Acetaminophen (Tylenol) 500 mg PRN Q6HRS PRN PO MILD PAIN / TEMP; Start at 10:15 Ondansetron HCl (Zofran) 4 mg PRN Q6HRS PRN IV NAUSEA/VOMITING; Start 09/07/16 at 10:15 Linezolid (Zyvox) 600 mg BID PEG Last administered on 09/10/16t 10:21; Start at 11:00 Active Scripts Active Reported Vitamin B-1 (Thiamine Mononitrate) 100 Mg Tablet 100 Mg PO DAILY Tylenol (Acetaminophen) 325 Mg Tablet 1 Tab PO PRN Q4HRS Reglan (Metoclopramide Hcl) 5 Mg Tablet 5 Mg PO TID Mucus ER (Guaifenesin) 600 Mg Tab.er.12h 600 Mg PO BID Famotidine 20 Mg Tablet 20 Mg PO BID Duoneb 0.5-3(2.5) Mg/3 Ml (Albuterol/Ipratropium) 3 Ml Ampul.neb 3 Ml NEB QID Xarelto (Rivaroxaban) 20 Mg Tablet 20 Mg PO DAILY Thiamine Hcl 100 Mg Tablet 100 Mg PO DAILY Transderm-Scop (Scopolamine) 1 Each Patch.td72 1 Patch TP Q3DAYS Ranitidine Hcl 150 Mg Capsule 1 Cap PO BID Oxycontin (Oxycodone HCl) 10 Mg Tab.er.12h 10 Mg PO BID Oxycodone Hcl 5 Mg Capsule 1 Cap PO PRN Q6HRS PRN Oxybutynin Chloride 5 Mg Tablet 1 Tab PO BID Ondansetron Hcl 4 Mg Tablet 1 Tab PO PRN Q8HRS PRN Mirtazapine 30 Mg Tablet 1 Tab PO QHS Miralax (Polyethylene Glycol 3350) 17 Gm Powd.pack 1 Pkt PO PRN DAILY PRN Lactulose 20 Gm/30 Ml Solution 20 Gm PO PRN DAILY PRN Docusate Sodium 100 Mg Capsule 1 Cap PO PRN BID PRN Diltiazem 24HR Cd (Diltiazem Hcl) 120 Mg Cap.er.24h 120 Mg PO DAILY Cymbalta (Duloxetine Hcl) 60 Mg Capsule.dr 60 Mg PO DAILY Coreg (Carvedilol) 12.5 Mg Tablet 1 Tab PO BID Buspirone Hcl 15 Mg Tablet 15 Mg PO TID Baclofen 10 Mg Tablet 10 Mg PO TID Atorvastatin Calcium 40 Mg Tablet 40 Mg PO HS Alprazolam 0.5 Mg Tablet 1 Tab PO PRN Q4HRS PRN Vitals/I & O Vital Sign - Last 24 Hours 09/09/16 09/09/16 09/09/16 09/09/16 15:15 15:25 16:30 16:30 Temp 98.5 98.5 Pulse 63 63 63 Resp 20 B/P 147/85 147/85 147/85 Pulse Ox 94 94 O2 Delivery Room Air 09/09/16 09/09/16 09/09/16 09/09/16 19:00 19:09 20:00 20:51 Temp 98.6 98.6 Pulse 59 Resp 20 20 B/P 151/90 Pulse Ox 94 94 O2 Delivery Room Air Nasal Cannula Room Air O2 Flow Rate 2.0 09/09/16 09/09/16 09/10/16 09/10/16 22:01 23:00 00:00 05:41 Temp 98.4 98.4 Pulse 65 59 50 Resp 20 18 B/P 149/95 149/95 149/95 Pulse Ox 95 O2 Delivery Nasal Cannula O2 Flow Rate 2.0 09/10/16 09/10/16 09/10/16 09/10/16 07:00 07:11 10:22 10:41 Temp 97.9 97.8 97.9 97.8 Pulse 67 67 68 Resp 18 18 B/P 149/109 149/109 130/80 Pulse Ox 92 96 93 O2 Delivery Nasal Cannula Nasal Cannula Nasal Cannula O2 Flow Rate 2.0 1.0 2.0 09/10/16 09/10/16 11:02 13:01 Pulse 68 B/P 130/80 O2 Delivery Nasal Cannula O2 Flow Rate 1.0 Intake and Output 09/09/16 09/09/16 09/10/16 15:00 23:00 07:00 Intake Total 1100 ml 1310 ml 2020 ml Output Total 0 ml Balance 1100 ml 1310 ml 2020 ml SHYAM LAMB MD Sep 10, 2016 13:14
[2016-09-10 15:00] VITALS: BP 135/85
--- NOTE | 2016-09-10 15:43 | PDOC ---
PULMONARY PROGRESS NOTES Subjective no increase soa Vitals Vital Signs Date Time Temp Pulse Resp B/P Pulse Ox O2 Delivery O2 Flow Rate FiO2 09/10/16 15:00 97.8 68 18 135/85 92 Nasal Cannula 2.0 97.8 Lungs: Clear, Other (anterior) Cardiovascular: S1 Abdomen: Soft Extremities: No Edema, Other (left upper contracture) Medications Active Scripts Medications Dose Route/Sig Days Date Category Vitamin B-1 (Thiamine Mononitrate) 100 Mg Tablet 100 Mg PO DAILY 09/04/16 Reported Tylenol (Acetaminophen) 325 Mg Tablet 1 Tab PO PRN Q4HRS 09/04/16 Reported Reglan (Metoclopramide Hcl) 5 Mg Tablet 5 Mg PO TID 09/04/16 Reported Mucus ER (Guaifenesin) 600 Mg Tab.er.12h 600 Mg PO BID 09/04/16 Reported Famotidine 20 Mg Tablet 20 Mg PO BID 09/04/16 Reported Duoneb 0.5-3(2.5) Mg/3 Ml (Albuterol/Ipratropium) 3 Ml Ampul.neb 3 Ml NEB QID 09/04/16 Reported Xarelto (Rivaroxaban) 20 Mg Tablet 20 Mg PO DAILY 05/12/16 Reported Thiamine Hcl 100 Mg Tablet 100 Mg PO DAILY 05/12/16 Reported Transderm-Scop (Scopolamine) 1 Each Patch.td72 1 Patch TP Q3DAYS 05/12/16 Reported Ranitidine Hcl 150 Mg Capsule 1 Cap PO BID 05/12/16 Reported Oxycontin (Oxycodone HCl) 10 Mg Tab.er.12h 10 Mg PO BID 05/12/16 Reported Oxycodone Hcl 5 Mg Capsule 1 Cap PO PRN Q6HRS PRN 05/12/16 Reported Oxybutynin Chloride 5 Mg Tablet 1 Tab PO BID 05/12/16 Reported Ondansetron Hcl 4 Mg Tablet 1 Tab PO PRN Q8HRS PRN 05/12/16 Reported Mirtazapine 30 Mg Tablet 1 Tab PO QHS 05/12/16 Reported Miralax (Polyethylene Glycol 3350) 17 Gm Powd.pack 1 Pkt PO PRN DAILY PRN 05/12/16 Reported Lactulose 20 Gm/30 Ml Solution 20 Gm PO PRN DAILY PRN 05/12/16 Reported Docusate Sodium 100 Mg Capsule 1 Cap PO PRN BID PRN 05/12/16 Reported Diltiazem 24HR Cd (Diltiazem Hcl) 120 Mg Cap.er.24h 120 Mg PO DAILY 05/12/16 Reported Cymbalta (Duloxetine Hcl) 60 Mg Capsule.dr 60 Mg PO DAILY 05/12/16 Reported Coreg (Carvedilol) 12.5 Mg Tablet 1 Tab PO BID 05/12/16 Reported Buspirone Hcl 15 Mg Tablet 15 Mg PO TID 05/12/16 Reported Baclofen 10 Mg Tablet 10 Mg PO TID 05/12/16 Reported Atorvastatin Calcium 40 Mg Tablet 40 Mg PO HS 05/12/16 Reported Alprazolam 0.5 Mg Tablet 1 Tab PO PRN Q4HRS PRN 05/12/16 Reported Impression . 1. Acute hypoxic respiratory failure secondary gram pos and possible negative pneumonia 2. 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 3. History of dysphagia, status post PEG tube placement. 4. Leukocytosis secondary to pneumonia. 5. Influenza negative. Plan . ID note appreciated hopefully transfer to SNU with IV antibx no need to repeat CT of chest TYRELL ADAM MD Sep 10, 2016 15:43
[2016-09-10 19:59] VITALS: BP 163/82
[2016-09-10] MEDS: MIRTAZAPINE 15 MG TABLET PEG SCH (20:50)
[2016-09-10] MEDS: ALPRAZOLAM 0.5 MG TABLET PEG PRN (20:51)
[2016-09-10] MEDS: ATORVASTATIN CALCIUM 40 MG TABLET. PEG SCH (20:52)
[2016-09-10] MEDS: OXYCODONE IR 5 MG TABLET. PEG PRN ×2 (20:56→22:40)
[2016-09-10 23:55] VITALS: BP 143/80
[2016-09-11 03:59] VITALS: BP 198/100
[2016-09-11] MEDS: PIPERACILLIN/TAZOBACTAM 4.5 GM in IV NORMAL SALINE 100ML 100 ML IV SCH ×2 (04:57→12:02)
[2016-09-11] MEDS: IV NORMAL SALINE 1000ML BAG 1,000 ML IV SCH (04:57)
[2016-09-11] MEDS: DILTIAZEM HCL 30 MG TABLET PEG SCH ×3 (04:58→12:01)
[2016-09-11] MEDS: GUAIFENESIN DM 200MG/20MG 10 ML SYRUP. PEG SCH ×2 (04:58→12:00)
[2016-09-11 07:00] VITALS: BP 113/75
[2016-09-11] MEDS: IPRATRPIUM/ALBUTEROL 0.5/2.5MG 3 ML NEBU. NEB SCH ×2 (07:10→11:21)
[2016-09-11] MEDS: METOCLOPRAMIDE HCL 10 MG/10 ML SOLUTION. PEG SCH ×2 (08:54→12:02)
[2016-09-11] MEDS: SCOPOLAMINE 1.5MG PATCH. TD SCH (08:54)
[2016-09-11] MEDS: FAMOTIDINE 20 MG TABLET. PEG SCH (08:55)
[2016-09-11] MEDS: methylPREDNISolone SOD SUCC PF 40 MG/ML VIAL. IV SCH (08:55)
[2016-09-11] MEDS: LINEZOLID 600 MG TABLET PEG SCH (08:55)
[2016-09-11] MEDS: BACLOFEN 10 MG TABLET PEG SCH (08:55)
[2016-09-11] MEDS: OXYCODONE IR 5 MG TABLET. PEG SCH (08:55)
[2016-09-11] MEDS: OXYBUTYNIN CHLORIDE 5 MG TABLET PEG SCH (08:56)
[2016-09-11] MEDS: THIAMINE 100 MG TABLET. PEG SCH (08:56)
[2016-09-11] MEDS: busPIRone 10 MG TABLET. PEG SCH (08:56)
[2016-09-11] MEDS: CARVEDILOL 12.5 MG TABLET PEG SCH (08:56)
[2016-09-11] MEDS: SULFACETAMIDE 10% OPHTH SOLUTION 15ML BOTTLE. OS SCH ×2 (08:57→13:00)
[2016-09-11] MEDS: DULOXETINE HCL 30 MG CAPSULE.DR. PO SCH (08:57)
[2016-09-11] MEDS: POLYETHYLENE GLYCOL 3350 17 GM PACKET. PEG SCH (09:00)
[2016-09-11] MEDS: HEPARIN PF for SUB-Q USE 5,000 UNIT/0.5 ML VIAL. SQ SCH (09:24)
[2016-09-11 10:49] VITALS: BP 162/76
[2016-09-11] MEDS ORDERED: LINE600T PEG (14:00)
[2016-09-11] MEDS ORDERED: PIPE4.5F2 IV (14:01)
--- NOTE | 2016-09-11 14:14 | PDOC ---
PROGRESS NOTES Chief Complaint Chief Complaint cc: pneumonia A/P 1. Acute hypoxic respiratory failure : supplemental oxygen , iv abx abx for 4 more days. 2. HCAP: Zosyn and Zyvox, id following, follow cx , dc today, abx stop date 3. COPD exacerbation: iv solumedrol, duonebs, 4. HTN 5. AF chronic : OAC, Xarelto, Cardizem and coreg 6. 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 7. GERD 8. dysphagia with PEG : tube feeds, 9. chronic moderate PCL malnutrition 10. mildly elevated LFTs 11. major depression recurrent mild : 12. Chronic pain: continue current medications. 13. Prognosis : guarded. Vitals Vitals Vital Signs Date Time Temp Pulse Resp B/P Pulse Ox O2 Delivery O2 Flow Rate FiO2 09/11/16 12:00 47 09/11/16 11:21 95 Nasal Cannula 2.0 09/11/16 10:49 97.6 18 162/76 97.6 Physical Exam General: Alert, No acute distress Heart: Normal S1, Normal S2 Lungs: Clear, Other (anterior) Abdomen: Normal bowel sounds, Soft, No tenderness, No hepatosplenomegaly, No masses, Other (indwelling PEG tube) Extremities: No cyanosis, No edema, Normal pulses, No tenderness/swelling, Other (left upper extemity contractures present. ) Skin: No rashes, No breakdown, No significant lesion Assessment and Plan Assessmemt and Plan Problems Medical Problems: (1) Cough Status: Acute (2) HCAP (healthcare-associated pneumonia) Status: Acute Problems: Comment Review of Relevant I have reviewed the following items sarai (where applicable) has been applied. Medications Current Medications Albuterol/ Ipratropium (Duoneb) 3 ml 1X ONCE NEB Last administered on t 16:22; Start 09/04/16 at 16:00; Stop 09/04/16 at 16:01; Status DC Acetaminophen (Tylenol) 325 mg PRN Q4HRS PRN PO PAIN/TEMP; Start 09/04/16 at 21 :00; Stop 09/05/16 at 09:38; Status DC Alprazolam (Xanax) 0.5 mg PRN Q4HRS PRN PO ANXIETY / AGITATION Last administered on 09/04/16 21:33; Start 09/04/16 at 21:00; Stop 09/05/16 at 09:38 ; Status DC Atorvastatin Calcium (Lipitor) 40 mg HS PO Last administered on 09/04/16 21:33 ; Start 09/04/16 at 21:30; Stop 09/05/16 at 09:41; Status DC Baclofen (Lioresal) 10 mg TID PO Last administered on 09/05/16 08:55; Start at 21:00; Stop 09/05/16 at 09:41; Status DC Carvedilol (Coreg) 12.5 mg BIDWMEALS PO ; Start 09/05/16 at 08:00; Stop at 09:42; Status DC Diltiazem HCl (Cardizem 24hr Cd) 120 mg DAILY PO ; Start 09/05/16 at 09:00; Stop 09/05/16 at 09:42; Status DC Docusate Sodium (Colace) 100 mg PRN BID PRN PO CONSTIPATION; Start 09/04/16 at 21:00; Stop 09/05/16 at 09:50; Status DC Famotidine (Pepcid) 20 mg BID PO ; Start 09/04/16 at 21:30; Status Cancel Guaifenesin (Mucinex) 600 mg BID PO Last administered on 09/05/16 08:56; Start 09/04/16 at 21:30; Stop 09/05/16 at 09:45; Status DC Albuterol/ Ipratropium (Duoneb) 3 ml QID NEB Last administered on 09/11/16 11: 21; Start 09/04/16 at 21:00 Lactulose 20 gm PRN DAILY PRN PO CONSTIPATION; Start 09/04/16 at 21:00; Stop at 09:44; Status DC Metoclopramide HCl (Reglan) 5 mg TIDAC PO Last administered on 09/05/16 08:55 ; Start 09/05/16 at 07:30; Stop 09/05/16 at 09:52; Status DC Oxybutynin Chloride (Ditropan) 5 mg BID PO Last administered on 09/05/16 08:56 ; Start 09/04/16 at 21:30; Stop 09/05/16 at 09:13; Status DC Polyethylene Glycol (miraLAX PACKET) 17 gm PRN DAILY PRN PO CONSTIPATION; Start 09/04/16 at 21:00; Stop 09/05/16 at 09:47; Status DC Scopolamine (Transderm-Scop) 1 patch Q3DAYS TD Last administered on 09/11/16 08 :54; Start 09/05/16 at 09:00 Thiamine HCl (Vitamin B-1) 100 mg DAILY PO Last administered on 09/05/16 08:56 ; Start 09/05/16 at 09:00; Stop 09/05/16 at 09:47; Status DC Buspirone HCl (Buspar) 15 mg TID PO Last administered on 09/05/16 08:56; Start 09/04/16 at 21:30; Stop 09/05/16 at 09:41; Status DC Duloxetine HCl (Cymbalta) 60 mg DAILY PO Last administered on 09/11/16 08:57; Start 09/05/16 at 09:00 Mirtazapine (Remeron) 30 mg QHS PEG Last administered on 09/10/16 20:50; Start 09/05/16 at 21:00 Ondansetron HCl (Zofran Odt) 4 mg PRN Q8HRS PRN PO NAUSEA; Start 09/04/16 at 21 :30; Stop 09/05/16 at 09:46; Status DC Oxycodone HCl (Roxicodone) 5 mg PRN Q6HRS PRN PO PAIN SEVERE; Start 09/04/16 at 21:30; Stop 09/05/16 at 09:13; Status DC Famotidine (Pepcid) 20 mg BID PO Last administered on 09/05/16 08:56; Start at 21:30; Stop 09/05/16 at 09:43; Status DC Rivaroxaban (Xarelto) 20 mg DAILYWSUP PO ; Start 09/05/16 at 17:00; Stop at 17:00; Status DC Non-Formulary Medication 100 mg DAILY PO ; Start 09/05/16 at 09:00; Status UNV Info 1 each 1 each PRN DAILY PRN MC SEE COMMENTS; Start 09/04/16 at 21:15; Stop 09/07/16 at 13:16; Status DC Piperacillin Sod/ Tazobactam Sod/ Sodium Chloride (Zosyn/Iv Sodium Chloride 0.9 % 100ml) 100 ml @ 200 mls/hr Q6HRS IV Last administered on 09/11/16 12:02; Start 09/05/16 at 00:30 Vancomycin HCl (Vanco Per Pharmacy) 1 each PRN DAILY PRN MC SEE COMMENTS Last administered on 09/07/16 13:23; Start 09/04/16 at 23:00; Stop 09/08/16 at 10:24 ; Status DC Ondansetron HCl (Zofran) 4 mg PRN Q8HRS PRN IV NAUSEA/VOMITING; Start 09/04/16 at 23:15; Stop 09/05/16 at 23:14; Status DC Albuterol/ Ipratropium (Duoneb) 3 ml RTQID NEB ; Start 09/05/16 at 08:00; Stop 09/05/16 at 08:00; Status DC Methylprednisolone Sodium Succinate 40 mg 40 mg Q12HR IV Last administered on 08:55; Start 09/05/16 at 09:00 Vancomycin HCl 1.5 gm/Sodium Chloride 500 ml @ 250 mls/hr 1X ONCE IV Last administered on 09/04/16 23:42; Start 09/04/16 at 23:15; Stop 09/05/16 at 01:14 ; Status DC Vancomycin HCl/ Sodium Chloride (Iv Sodium Chloride 0.9% 250ml) 250 ml @ 250 mls/hr Q12H IV Last administered on 09/07/16 23:05; Start 09/05/16 at 11:30; Stop 09/08/16 at 10:24; Status DC Vancomycin HCl 1 each 1X ONCE MC Last administered on 09/06/16 11:00; Start 09/06/16 at 11:00; Stop 09/06/16 at 11:01; Status DC Dextrose 25 gm STK-MED ONCE IV ; Start 09/05/16 at 07:52; Stop 09/05/16 at 07:53 ; Status DC Pneumococcal Polyvalent Vaccine (Pneumovax 23) 0.5 ml ONCE ONCE VAX IM Last administered on 09/06/16 10:06; Start 09/06/16 at 09:00; Stop 09/06/16 at 09:01 ; Status DC Influenza Virus Vaccine Quadrival (Fluarix Quad [id number] Syringe) 0.5 ml ONCE ONCE VAX IM Last administered on 09/06/16 10:02; Start 09/06/16 at 09:00; Stop 09/06/16 at 09:01; Status DC Oxybutynin Chloride (Ditropan) 10 mg BID PEG Last administered on 09/11/16 08: 56; Start 09/05/16 at 09:00 Oxycodone HCl (Roxicodone) 5 mg PRN Q4HRS PRN PEG PAIN SEVERE Last administered on 09/10/16 20:56; Start 09/05/16 at 09:00 Rivaroxaban (Xarelto) 15 mg DAILYWSUP PO ; Start 09/05/16 at 17:00; Stop at 17:00; Status DC Polyethylene Glycol (miraLAX PACKET) 17 gm DAILY PEG Last administered on 10:26; Start 09/05/16 at 09:00 Oxycodone HCl 5 mg 5 mg DAILY08 PEG Last administered on 09/11/16 08:55; Start 09/05/16 at 10:00 Sodium Chloride (Iv Sodium Chloride 0.9% 1000ml Bag) 1,000 ml @ 100 mls/hr Q10H IV Last administered on 09/11/16 04:57; Start 09/05/16 at 10:00 Acetaminophen (Tylenol) 325 mg PRN Q4HRS PRN PEG PAIN/TEMP Last administered on 09/08/16 09:12; Start 09/05/16 at 09:38 Alprazolam (Xanax) 0.5 mg PRN Q4HRS PRN PEG ANXIETY / AGITATION Last administered on 09/10/16 20:51; Start 09/05/16 at 09:38 Diltiazem HCl (Cardizem) 30 mg Q6HRS PEG Last administered on 09/11/16 04:58; Start 09/05/16 at 10:00 Atorvastatin Calcium (Lipitor) 40 mg HS PEG Last administered on 09/10/16 20:52 ; Start 09/05/16 at 09:41 Baclofen (Lioresal) 10 mg TID PEG Last administered on 09/11/16 08:55; Start at 09:41 Buspirone HCl (Buspar) 15 mg TID PEG Last administered on 09/11/16 08:56; Start 09/05/16 at 09:41 Carvedilol (Coreg) 12.5 mg BIDWMEALS PEG Last administered on 09/11/16 08:56; Start 09/05/16 at 09:42 Famotidine (Pepcid) 20 mg BID PEG Last administered on 09/11/16 08:55; Start at 09:43 Lactulose 20 gm PRN DAILY PRN PEG CONSTIPATION; Start 09/05/16 at 09:44 Guaifenesin (Robitussin Dm) 20 ml Q6HRS PEG Last administered on 09/11/16 12:00 ; Start 09/05/16 at 12:00 Ondansetron HCl (Zofran Odt) 4 mg PRN Q8HRS PRN PEG NAUSEA; Start 09/05/16 at 09:46 Polyethylene Glycol (miraLAX PACKET) 17 gm PRN DAILY PRN PEG CONSTIPATION; Start 09/05/16 at 09:47 Thiamine HCl (Vitamin B-1) 100 mg DAILY PEG Last administered on 09/11/16 08:56 ; Start 09/05/16 at 09:47 Docusate Sodium (Colace Solution) 100 mg PRN BID PRN PEG CONSTIPATION Last administered on 09/08/16 09:12; Start 09/05/16 at 09:50 Metoclopramide HCl (Reglan) 5 mg TIDAC PEG Last administered on 09/11/16 12:02 ; Start 09/05/16 at 11:30 Heparin Sodium (Porcine) 5,000 unit Q12HR SQ Last administered on 09/11/16 09: 24; Start 09/05/16 at 11:00 Sulfacetamide Sodium (Sulf-10) 1 drop QID OS Last administered on 09/11/16 13: 00; Start 09/06/16 at 13:00 Dextrose 25 gm STK-MED ONCE IV ; Start 09/05/16 at 08:00; Stop 09/07/16 at 08:46 ; Status DC Acetaminophen (Tylenol) 500 mg PRN Q6HRS PRN PO MILD PAIN / TEMP; Start at 10:15 Ondansetron HCl (Zofran) 4 mg PRN Q6HRS PRN IV NAUSEA/VOMITING; Start 09/07/16 at 10:15 Linezolid (Zyvox) 600 mg BID PEG Last administered on 09/11/16t 08:55; Start at 11:00 Active Scripts Active Reported Zosyn 4.5 Gm Pre-Mix Bag (Uepwtpnwwjze-Pcan-Rjepartq,Iso) 4.5 Gm/100 Ml Froz.piggy 4.5 Gm IV Q6HRS 4 Days Zyvox (Linezolid) 600 Mg Tablet 600 Mg PEG BID 4 Days Tylenol (Acetaminophen) 325 Mg Tablet 1 Tab PO PRN Q4HRS Reglan (Metoclopramide Hcl) 5 Mg Tablet 5 Mg PO TID Mucus ER (Guaifenesin) 600 Mg Tab.er.12h 600 Mg PO BID Famotidine 20 Mg Tablet 20 Mg PO BID Duoneb 0.5-3(2.5) Mg/3 Ml (Albuterol/Ipratropium) 3 Ml Ampul.neb 3 Ml NEB QID Xarelto (Rivaroxaban) 20 Mg Tablet 20 Mg PO DAILY Thiamine Hcl 100 Mg Tablet 100 Mg PO DAILY Transderm-Scop (Scopolamine) 1 Each Patch.td72 1 Patch TP Q3DAYS Ranitidine Hcl 150 Mg Capsule 1 Cap PO BID Oxycontin (Oxycodone HCl) 10 Mg Tab.er.12h 10 Mg PO BID Oxycodone Hcl 5 Mg Capsule 1 Cap PO PRN Q6HRS PRN Oxybutynin Chloride 5 Mg Tablet 1 Tab PO BID Ondansetron Hcl 4 Mg Tablet 1 Tab PO PRN Q8HRS PRN Mirtazapine 30 Mg Tablet 1 Tab PO QHS Miralax (Polyethylene Glycol 3350) 17 Gm Powd.pack 1 Pkt PO PRN DAILY PRN Lactulose 20 Gm/30 Ml Solution 20 Gm PO PRN DAILY PRN Docusate Sodium 100 Mg Capsule 1 Cap PO PRN BID PRN Diltiazem 24HR Cd (Diltiazem Hcl) 120 Mg Cap.er.24h 120 Mg PO DAILY Cymbalta (Duloxetine Hcl) 60 Mg Capsule.dr 60 Mg PO DAILY Coreg (Carvedilol) 12.5 Mg Tablet 1 Tab PO BID Buspirone Hcl 15 Mg Tablet 15 Mg PO TID Baclofen 10 Mg Tablet 10 Mg PO TID Atorvastatin Calcium 40 Mg Tablet 40 Mg PO HS Alprazolam 0.5 Mg Tablet 1 Tab PO PRN Q4HRS PRN Vitals/I & O Vital Sign - Last 24 Hours 09/10/16 09/10/16 09/10/16 09/10/16 15:00 16:02 17:37 17:38 Temp 97.8 97.8 Pulse 68 68 68 Resp 18 B/P 135/85 135/85 135/85 Pulse Ox 92 O2 Delivery Nasal Cannula Nasal Cannula O2 Flow Rate 2.0 1.0 09/10/16 09/10/16 09/10/16 09/10/16 19:59 20:00 20:52 20:56 Temp 98.1 98.1 Pulse 44 44 Resp 20 18 B/P 163/82 135/85 Pulse Ox 94 O2 Delivery Room Air Nasal Cannula Room Air O2 Flow Rate 2.0 09/10/16 09/10/16 09/11/16 09/11/16 22:41 23:55 03:59 04:58 Temp 97.8 98.2 97.8 98.2 Pulse 44 52 69 Resp 17 18 18 B/P 143/80 198/100 198/100 Pulse Ox 92 92 O2 Delivery Room Air Room Air Nasal Cannula O2 Flow Rate 2.0 09/11/16 09/11/16 09/11/16 09/11/16 07:00 07:10 08:56 10:49 Temp 97.8 97.6 97.8 97.6 Pulse 57 57 47 Resp 18 B/P 113/75 113/75 162/76 Pulse Ox 96 95 94 O2 Delivery Room Air Nasal Cannula Nasal Cannula O2 Flow Rate 2.0 2.0 09/11/16 09/11/16 11:21 12:00 Pulse 47 Pulse Ox 95 O2 Delivery Nasal Cannula O2 Flow Rate 2.0 Intake and Output 09/10/16 09/10/16 09/11/16 15:00 23:00 07:00 Intake Total 320 ml 1160 ml 1900 ml Balance 320 ml 1160 ml 1900 ml SHYAM LAMB MD Sep 11, 2016 14:14
--- NOTE | 2016-09-12 03:11 | DS ---
DATE OF DISCHARGE: 09/11/2016 DISCHARGE DIAGNOSES: 1. Acute hypoxic respiratory failure. 2. Healthcare associated pneumonia. 3. Chronic obstructive pulmonary disease exacerbation. 4. Hypertension. 5. Chronic atrial fibrillation. 6. History of right thalamic infarct with left-sided hemiplegia. 7. Gastroesophageal reflux disease. 8. Dysphagia, percutaneous endoscopic gastrostomy tube. 9. Chronic moderate protein-calorie malnutrition. 10. Mild elevation of LFTs. 11. Major depression. 12. Chronic pain. BRIEF HOSPITAL COURSE: This is a 71-year-old male patient admitted to the hospital initially for Dr. Goldstein's team. Later care has been transferred to [facility] team on 09/07/2016 for HCAP. During hospitalization, the patient was treated for HCAP and respiratory failure. He was started on broad spectrum antibiotics. He was evaluated by Dr. Cash during hospitalization and Dr. Smith. The patient showed some clinical improvement with IV antibiotics. I did discuss with Infectious Disease. The patient can go to intermediate facility with IV antibiotics for 5 more days and that will be 09/15/2016. DISCHARGE EXAMINATION: Please see my progress note. DISCHARGE CONDITION: Stable. PROGNOSIS: Guarded. FOLLOWUP: With primary care doctor after completion of antibiotics, possible repeat chest x-ray. DIET: Tube feeds. Total time spent for discharge is 33 minutes for the patient education, counseling, and coordination of care. SHYAM LAMB MD DR: ALIA/aishwarya JOB#: [id number] / [id number] LAM
== END 2016-09-11 14:30 | DRG 189 ==
LOC: ER 13:46 → 5 SOUTH 16:47
PROVIDERS: ADMIT Internal Medicine; ATTEND Internal Medicine
DX: J96.01 Acute respiratory failure with hypoxia (principal); J15.6 Pneumonia due to other Gram-negative bacteria; J44.0 Chronic obstructive pulmonary disease with (acute) lower respiratory infection; E44.0 Moderate protein-calorie malnutrition; F33.9 Major depressive disorder, recurrent, unspecified; I69.354 Hemiplegia and hemiparesis following cerebral infarction affecting left non-dominant side; J98.11 Atelectasis; J44.1 Chronic obstructive pulmonary disease with (acute) exacerbation; E78.00 Pure hypercholesterolemia, unspecified; E78.5 Hyperlipidemia, unspecified; G89.29 Other chronic pain; I48.2 Chronic atrial fibrillation; I50.9 Heart failure, unspecified; I11.0 Hypertensive heart disease with heart failure; K21.9 Gastro-esophageal reflux disease without esophagitis; N40.0 Benign prostatic hyperplasia without lower urinary tract symptoms; R13.10 Dysphagia, unspecified; Y95 Nosocomial condition; Z96.642 Presence of left artificial hip joint; Z96.651 Presence of right artificial knee joint; D64.9 Anemia, unspecified; F41.9 Anxiety disorder, unspecified; Z93.1 Gastrostomy status; Z87.891 Personal history of nicotine dependence; Z79.01 Long term (current) use of anticoagulants; Z88.5 Allergy status to narcotic agent
CPT/HCPCS: 36415; 71010; 71250; 80053; 80202; 81001; 82947; 83605; 83735; 83880; 84484; 85007; 85027; 87804; 90686; 90732; 93005; 94250; 94640; 94760; J2543; J2920; J3370; J7030; J7040; J7042; J7050; J7620; J8597; 92610; 99285-25

== ENCOUNTER 2016-12-04 04:27 | Emergency (ER) | payer MEDICARE, OTHER ==
[~2016-12-04] VITALS: Ht 182.9 cm; Wt 59.0 kg
[~2016-12-04 04:27] MED LIST changes: +ACET325T9 PO; +CARV6.252 PO; +CEPH500C PO; +DIPH25CA20 PO; +FAMO20TA5 PO; +GUAI600T6 PO; +IPRA3AMP NEB; +LINE600T PEG; +METO5TAB55 PO; +PIPE4.5F2 IV; +POLY17PO29 PO; -POLY17PO5 PO; +THIA100T22 PO
[2016-12-04 04:50] LABS: BASO % 0 % (0-3); EOS % 2 % (0-3); HEMATOCRIT 40.2 % (39.0-53.0); HEMOGLOBIN 13.6 g/dL (13.0-17.5); LYMPH # 0.9 x10^3/uL (1.0-4.8); LYMPH % 9 % (24-48); MEAN CORPUSCULAR HEMOGLOBIN 34 pg (25-35); MEAN CORPUSCULAR HGB CONC 34 g/dL (31-37); MEAN CORPUSCULAR VOLUME 101 fL (79-100); MONO % 8 % (0-9); NEUT % 81 % (31-73); PLATELET COUNT 202 x10^3/uL (140-400); RED BLOOD COUNT 3.97 x10^6/uL (4.30-5.70); RED CELL DISTRIBUTION WIDTH 14.8 % (11.5-14.5); WHITE BLOOD COUNT 9.8 x10^3/uL (4.0-11.0)
--- NOTE | 2016-12-04 04:50 | PHYS DOC ---
Past Medical History Past Medical History: A-Fib, Anemia, Anxiety, CHF, COPD, CVA, GERD, High Cholesterol, Hypertension Additional Past Medical Histor: dysphagia, BPH Past Surgical History: Hip Replacement, Knee Replacement Additional Past Surgical Histo: Peg tube, L hip, R knee Alcohol Use: None Drug Use: None Adult General Chief Complaint Chief Complaint: COUGH HPI HPI Patient is a 71 year old male who presents by EMS from detention for cough that started tonight. He had a desat to the 80s and was reported to have a fever. EMS noted O2 sats >90 on RA. He nods yes or no to questions. States he currently feels at baseline, had cough and dyspnea earlier, but is no longer short of breath. He denies chest pain, abdominal pain, diaphoresis, palpitations, fever or chills, nausea or vomiting, sore throat, rhinorrhea, nasal congestion, abdominal pain, headache, extremity pain. Review of Systems Review of Systems Constitutional: Denies fever or chills [] Eyes: Denies change in visual acuity, redness, or eye pain [] HENT: Denies nasal congestion or sore throat [] Respiratory: Denies shortness of breath [] Cardiovascular: No additional information not addressed in HPI [] GI: Denies abdominal pain, nausea, vomiting, bloody stools or diarrhea [] : Denies dysuria or hematuria [] Musculoskeletal: Denies back pain or joint pain [] Integument: Denies rash or skin lesions [] Neurologic: Denies headache, focal weakness or sensory changes [] Endocrine: Denies polyuria or polydipsia [] Allergies Allergies Allergies Coded Allergies Type Severity Reaction Last Updated Verified morphine Allergy Intermediate 05/12/16 Yes I S O L A T I O N *CONTACT* Allergy Unknown 05/14/16 Yes Physical Exam Physical Exam Constitutional: Well developed, thin, no acute distress, non-toxic appearance. [ ] HENT: Normocephalic, atraumatic, bilateral external ears normal, oropharynx moist, nose normal. [] Eyes: PERRLA, EOMI. [] Neck: Normal range of motion, supple, no stridor. [] Cardiovascular:Heart rate regular rhythm [] Lungs & Thorax: Bilateral breath sounds clear to auscultation. [] Abdomen: Bowel sounds normal, soft, no tenderness. PEG tube in place. [] Skin: Warm, dry, no erythema, no rash. [] Back: No tenderness, no CVA tenderness. [] Extremities: No tenderness, no edema. [] Neurologic: Alert, nonverbal, normal sensory function, chronic contractures to extremities. [] Psychologic: Affect normal, judgement normal, mood normal. [] Current Patient Data Vital Signs Vital Signs Date Time Temp Pulse Resp B/P (MAP) Pulse Ox O2 Delivery O2 Flow Rate FiO2 12/04/16 04:30 98.2 69 16 125/76 (92) 97 Room Air 3.0 98.2 Lab Values Laboratory Tests Test 12/04/16 04:40 White Blood Count 9.8 x10^3/uL (4.0-11.0) Red Blood Count 3.97 x10^6/uL (4.30-5.70) L Hemoglobin 13.6 g/dL (13.0-17.5) Hematocrit 40.2 % (39.0-53.0) Mean Corpuscular Volume 101 fL (79-100) H Mean Corpuscular Hemoglobin 34 pg (25-35) Mean Corpuscular Hemoglobin Concent 34 g/dL (31-37) Red Cell Distribution Width 14.8 % (11.5-14.5) H Platelet Count 202 x10^3/uL (140-400) Neutrophils (%) (Auto) 81 % (31-73) H Lymphocytes (%) (Auto) 9 % (24-48) L Monocytes (%) (Auto) 8 % (0-9) Eosinophils (%) (Auto) 2 % (0-3) Basophils (%) (Auto) 0 % (0-3) Neutrophils # (Auto) 7.9 x10^3uL (1.8-7.7) H Lymphocytes # (Auto) 0.9 x10^3/uL (1.0-4.8) L Monocytes # (Auto) 0.8 x10^3/uL (0.0-1.1) Eosinophils # (Auto) 0.2 x10^3/uL (0.0-0.7) Basophils # (Auto) 0.0 x10^3/uL (0.0-0.2) Sodium Level 143 mmol/L (136-145) Potassium Level 4.2 mmol/L (3.5-5.1) Chloride Level 105 mmol/L (98-107) Carbon Dioxide Level 30 mmol/L (21-32) Anion Gap 8 (6-14) Blood Urea Nitrogen 23 mg/dL (8-26) Creatinine 0.8 mg/dL (0.7-1.3) Estimated GFR (Cockcroft-Gault) 95.8 Glucose Level 105 mg/dL (70-99) H Calcium Level 9.5 mg/dL (8.5-10.1) Laboratory Tests 12/04/16 04:40 Laboratory Tests 12/04/16 04:40 Radiology/Procedures Radiology/Procedures Chest xray as interpreted by me with no acute cardiopulmonary disease process; unchanged compared to prior Course & Med Decision Making Course & Med Decision Making Pertinent Labs and Imaging studies reviewed. (See chart for details) Workup is largely unremarkable. He remains with oxygen saturation 93% or better on room air. He has coughed one time while here. Will discharge back to nursing facility for further outpatient management. He will be transferred via EMS. Dragon Disclaimer Dragon Disclaimer This electronic medical record was generated, in whole or in part, using a voice recognition dictation system. Departure Departure Impression: Primary Impression: Cough Disposition: HOME, SELF-CARE Condition: STABLE Referrals: STERLING MCLAIN MD (PCP) Patient Instructions: Cough, Adult, [id number] Additional Instructions: Continue current medications. Follow-up with your primary care doctor. Return for any concerns. Norma BUNEO MD December 04, 2016 04:50
[2016-12-04 04:59] LABS: CALCIUM 9.5 mg/dL (8.5-10.1); CREATININE 0.8 mg/dL (0.7-1.3); GFR 95.8; POTASSIUM 4.2 mmol/L (3.5-5.1)
[2016-12-04 05:02] VITALS: BP 134/83
--- NOTE | 2016-12-04 07:25 | RAD ---
Indication shortness of breath. A single view of the chest was obtained and is compared to an examination 10/15/2016. Heart size and pulmonary vessels are unremarkable. Patchy areas of volume loss, probably reflecting atelectasis, are seen and appears similar. A consolidated pneumonia is not seen. Tortuous thoracic aorta is noted. IMPRESSION: No definite acute finding apparent in the chest
== END 2016-12-04 05:36 | disposition home or self-care (01) ==
LOC: ER 04:27
DX: R05 Cough (principal); I11.0 Hypertensive heart disease with heart failure; I50.9 Heart failure, unspecified; E78.00 Pure hypercholesterolemia, unspecified; K21.9 Gastro-esophageal reflux disease without esophagitis; J44.9 Chronic obstructive pulmonary disease, unspecified; I48.91 Unspecified atrial fibrillation; N40.0 Benign prostatic hyperplasia without lower urinary tract symptoms; Z86.73 Personal history of transient ischemic attack (TIA), and cerebral infarction without residual deficits; Z96.642 Presence of left artificial hip joint; Z96.651 Presence of right artificial knee joint; Z88.5 Allergy status to narcotic agent; Z91.041 Radiographic dye allergy status
CPT/HCPCS: 36415; 71010; 80048; 85027; 99285-25

== ENCOUNTER 2016-12-18 12:07 | Emergency (ER) | payer MEDICARE, OTHER ==
[~2016-12-18 12:07] MED LIST changes: +DILT120C80 PO; -DILT120C97 PO; +DOCU100C28 PO; -DOCU100C5 PO; -ONDA-35 PO; +ONDA4TAB11 PO; -OXYC10TA32 PO; +OXYC10TA45 PO; +OXYC5CAP PO; -OXYC5CAP3 PO
--- NOTE | 2016-12-18 12:15 | PHYS DOC ---
Past Medical History Past Medical History: A-Fib, Anemia, Anxiety, CHF, COPD, CVA, GERD, High Cholesterol, Hypertension, Pneumonia Additional Past Medical Histor: dysphagia, BPH Past Surgical History: Hip Replacement, Knee Replacement Additional Past Surgical Histo: Peg tube, L hip, R knee Alcohol Use: None Drug Use: None Adult General Chief Complaint Chief Complaint: Altered Mental Status HPI HPI Patient is a 71 year old [f__sex] who presents with pmh of A-Fib, Anemia, Anxiety, CHF, COPD, CVA, GERD, High Cholesterol, Hypertension, Pneumonia, who presents with decreased level of responsiveness this morning. According to his care facility he slow to respond. He was normal last night. According to his daughter yesterday he acted a little sluggish was having some troubles breathing but that has resolved. Here he is acting appropriately. He denies any fevers chills nausea vomiting or shortness of breath or chest discomfort. Review of Systems Review of Systems Constitutional: Denies fever or chills [] Eyes: Denies change in visual acuity, redness, or eye pain [] HENT: Denies nasal congestion or sore throat [] Respiratory: Denies cough or shortness of breath [] Cardiovascular: No additional information not addressed in HPI [] GI: Denies abdominal pain, nausea, vomiting, bloody stools or diarrhea [] : Denies dysuria or hematuria [] Musculoskeletal: Denies back pain or joint pain [] Integument: Denies rash or skin lesions [] Neurologic: Denies headache, focal weakness or sensory changes [] Endocrine: Denies polyuria or polydipsia [] Allergies Allergies Allergies Coded Allergies Type Severity Reaction Last Updated Verified morphine Allergy Intermediate 05/12/16 Yes I S O L A T I O N *CONTACT* Allergy Unknown 05/14/16 Yes Physical Exam Physical Exam Constitutional: Well developed, well nourished, no acute distress, non-toxic appearance. [] HENT: Normocephalic, atraumatic, bilateral external ears normal, oropharynx moist, no oral exudates, nose normal. [] Eyes: PERRLA, EOMI, conjunctiva normal, no discharge. [] Neck: Normal range of motion, no tenderness, supple, no stridor. [] Cardiovascular:Heart rate regular rhythm, no murmur [] Lungs & Thorax: Bilateral breath sounds clear to auscultation [] Abdomen: Bowel sounds normal, soft, no tenderness, no masses, no pulsatile masses. [] Skin: Warm, dry, no erythema, no rash. [] Back: No tenderness, no CVA tenderness. [] Extremities: No tenderness, no cyanosis, no clubbing, ROM intact, no edema. [] Neurologic: Alert and oriented X 3, normal motor function, normal sensory function, pressures of the left upper and lower extremity, at his baseline. Psychologic: Affect normal, judgement normal, mood normal. [] Current Patient Data Vital Signs Vital Signs Date Time Temp Pulse Resp B/P (MAP) Pulse Ox O2 Delivery O2 Flow Rate FiO2 12/18/16 12:07 97.9 58 21 118/75 (89) 99 Nasal Cannula 2.0 97.9 Lab Values Laboratory Tests Test 12/18/16 12:20 12/18/16 14:20 12/18/16 14:50 White Blood Count 10.1 x10^3/uL (4.0-11.0) Red Blood Count 4.03 x10^6/uL (4.30-5.70) L Hemoglobin 13.8 g/dL (13.0-17.5) Hematocrit 40.2 % (39.0-53.0) Mean Corpuscular Volume 100 fL (79-100) Mean Corpuscular Hemoglobin 34 pg (25-35) Mean Corpuscular Hemoglobin Concent 34 g/dL (31-37) Red Cell Distribution Width 14.3 % (11.5-14.5) Platelet Count 162 x10^3/uL (140-400) Neutrophils (%) (Auto) 81 % (31-73) H Lymphocytes (%) (Auto) 7 % (24-48) L Monocytes (%) (Auto) 10 % (0-9) H Eosinophils (%) (Auto) 1 % (0-3) Basophils (%) (Auto) 0 % (0-3) Neutrophils # (Auto) 8.2 x10^3uL (1.8-7.7) H Lymphocytes # (Auto) 0.7 x10^3/uL (1.0-4.8) L Monocytes # (Auto) 1.0 x10^3/uL (0.0-1.1) Eosinophils # (Auto) 0.1 x10^3/uL (0.0-0.7) Basophils # (Auto) 0.0 x10^3/uL (0.0-0.2) Prothrombin Time 17.5 SEC (11.7-14.0) H Prothrombin Time INR 1.5 (0.8-1.1) H PTT 45 SEC (24-38) H Sodium Level 139 mmol/L (136-145) Potassium Level 4.5 mmol/L (3.5-5.1) Chloride Level 102 mmol/L (98-107) Carbon Dioxide Level 33 mmol/L (21-32) H Anion Gap 4 (6-14) L Blood Urea Nitrogen 15 mg/dL (8-26) Creatinine 0.7 mg/dL (0.7-1.3) Estimated GFR (Cockcroft-Gault) 111.8 Glucose Level 92 mg/dL (70-99) Lactic Acid Level 1.3 mmol/L (0.4-2.0) Calcium Level 9.4 mg/dL (8.5-10.1) Magnesium Level 2.1 mg/dL (1.8-2.4) Total Bilirubin 0.6 mg/dL (0.2-1.0) Direct Bilirubin 0.2 mg/dL (0.0-0.2) Aspartate Amino Transferase (AST) 59 U/L (15-37) H Alanine Aminotransferase (ALT) 65 U/L (16-63) H Alkaline Phosphatase 113 U/L (46-116) Ammonia 27 mcmol/L (11-34) Creatine Kinase 95 U/L (39-308) Creatine Kinase MB (Mass) 0.6 ng/mL (0.0-3.6) Creatine Kinase MB Relative Index 0.6 % (0-4) Troponin I Quantitative 0.031 ng/mL (0.000-0.055) NV-Kgo-X-Type Natriuretic Peptide 312 pg/mL (0-124) H Total Protein 7.8 g/dL (6.4-8.2) Albumin 3.2 g/dL (3.4-5.0) L Urine Opiates Screen Neg (NEG) Urine Methadone Screen Neg (NEG) Urine Barbiturates Neg (NEG) Urine Phencyclidine Screen Neg (NEG) Urine Amphetamine/Methamphetamine Neg (NEG) Urine Benzodiazepines Screen Pos (NEG) Urine Cocaine Screen Neg (NEG) Urine Cannabinoids Screen Neg (NEG) Urine Ethyl Alcohol Neg (NEG) O2 Saturation 97 % (92-99) Arterial Blood pH 7.47 (7.35-7.45) H Arterial Blood pCO2 at Patient Temp 39 mmHg (35-46) Arterial Blood pO2 at Patient Temp 88 mmHg (65-108) Arterial Blood HCO3 28 mmol/L (21-28) Arterial Blood Base Excess 4 mmol/L (-3-3) H FiO2 2 lpm nc Laboratory Tests 12/18/16 12:20 Laboratory Tests 12/18/16 12:20 EKG EKG G shows sinus at a rate of 57 beats were without any ST elevations or T-wave inversions, left axis deviation, QTC 410 ms, as interpreted by me. Radiology/Procedures Radiology/Procedures [facility] [id number] [place], [place] [id number] IMAGING REPORT Signed PATIENT: OLI MICHAEL ACCOUNT: [id number] : 1945 LOCATION: ER AGE: 71 SEX: M EXAM STATUS: REG ER ORD. PHYSICIAN: EARLE LEMUS MD REASON: ALTERED MENTAL STATUS PROCEDURE: PORTABLE CHEST 1V Portable chest, 12/18/2016: History: Altered mental status The heart size is normal. There is tortuosity of the thoracic aorta. The pulmonary vascularity is within normal limits. There is mild linear scarring and/or atelectasis in the lower chest bilaterally. No pulmonary consolidation is seen. There is no evidence of pleural fluid. Healed rib fractures are noted on the left. Surgical rods and screws are noted in the lumbar spine IMPRESSION: 1. Mild bibasilar linear scarring and/or atelectasis. 2. Aortic atherosclerosis. DICTATED and SIGNED BY: CIARA LINARES MD DATE: 12/18/16 8005 CC: EARLE LEMUS MD; STERLING MCLAIN MD ~ [facility] [address] [place] [address] IMAGING REPORT Signed PATIENT: OLI MICHAEL ACCOUNT: [id number] : 1945 LOCATION: ER AGE: 71 SEX: M EXAM STATUS: REG ER ORD. PHYSICIAN: EARLE LEMUS MD REASON: AMS PROCEDURE: CT HEAD WO CONTRAST CT of the head without contrast, 12/18/2016: History: Seizure Comparison is made to a study from 10/15/2016. The patient's head is rotated. There is moderate cerebral atrophy. There are moderate patchy lucencies in the deep white matter bilaterally also evident on the previous study. The findings are compatible with chronic ischemic change with old deep white matter infarcts. The ventricles are within normal limits in size. There is no shift of the midline structures. There is no evidence of acute intracranial hemorrhage or mass effect. Tiny bilateral pontine lucencies are also again noted, compatible with old infarcts. IMPRESSION: 1. Cerebral atrophy. 2. 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 3. No acute intracranial abnormality is detected. PQRS Compliance Statement: One or more of the following individualized dose reduction techniques were utilized for this examination: 1. Automated exposure control 2. Adjustment of the mA and/or kV according to patient size 3. Use of iterative reconstruction technique DICTATED and SIGNED BY: CIARA LINARES MD DATE: 12/18/16 1320 CC: EARLE LEMUS MD; STERLING MCLAIN MD ~ Impressions: Altered Mental status-resolved Course & Med Decision Making Course & Med Decision Making Pertinent Labs and Imaging studies reviewed. (See chart for details) Family is at bedside states he's at his normal mentation. Spoke with hospitalist Dr. Jerome, who states this no criteria for admission since he is at his baseline and to let him go back to his nursing facility. Family is agreeable to this and is informed to return ER if he has any changes in mentation, troubles breathing, fevers or other concerns. According to the daughter the same thing happened last week when he received 2 much benzodiazepines and he slept for several days. He does have benzos in his urine perhaps now that that has worn off he is doing better. He is being discharged back to his facility in stable condition at this time. He was watched for approximately 4 hours in the ER. Dragon Disclaimer Dragon Disclaimer This electronic medical record was generated, in whole or in part, using a voice recognition dictation system. Departure Departure Impression: Primary Impression: Altered mental state Disposition: 01 HOME, SELF-CARE Referrals: STERLING MCLAIN MD (PCP) Patient Instructions: Altered Mental Status Additional Instructions: You were seen today for mild confusion. This could've been secondary to your Ativan, or other benzodiazepine that you have been receiving. You are better now. I do not see any acute abnormalities with your blood work that justifies you being in the hospital. Your being discharged back to your facility to be observed. If anything changes you become more confused, he developed fevers shortness of breath or other concerns please return back to emergency department. Problem Qualifiers Primary Impression: Altered mental state Altered mental status type: unspecified Qualified Codes: R41.82 - Altered mental status, unspecified EARLE LEMUS MD Dec 18, 2016 12:15
[2016-12-18 12:38] LABS: HEMATOCRIT 40.2 % (39.0-53.0); HEMOGLOBIN 13.8 g/dL (13.0-17.5); MEAN CORPUSCULAR HEMOGLOBIN 34 pg (25-35); MEAN CORPUSCULAR HGB CONC 34 g/dL (31-37); MEAN CORPUSCULAR VOLUME 100 fL (79-100); PLATELET COUNT 162 x10^3/uL (140-400); RED BLOOD COUNT 4.03 x10^6/uL (4.30-5.70); RED CELL DISTRIBUTION WIDTH 14.3 % (11.5-14.5); WHITE BLOOD COUNT 10.1 x10^3/uL (4.0-11.0)
[2016-12-18 12:39] LABS: BASO % 0 % (0-3); EOS % 1 % (0-3); LYMPH # 0.7 x10^3/uL (1.0-4.8); LYMPH % 7 % (24-48); MONO % 10 % (0-9); NEUT % 81 % (31-73)
--- NOTE | 2016-12-18 12:53 | EKG ---
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
[2016-12-18 12:54] LABS: INR 1.5 (0.8-1.1); PROTHROMBIN TIME PATIENT 17.5 SEC (11.7-14.0)
--- NOTE | 2016-12-18 12:59 | RAD ---
Portable chest, 12/18/2016: History: Altered mental status The heart size is normal. There is tortuosity of the thoracic aorta. The pulmonary vascularity is within normal limits. There is mild linear scarring and/or atelectasis in the lower chest bilaterally. No pulmonary consolidation is seen. There is no evidence of pleural fluid. Healed rib fractures are noted on the left. Surgical rods and screws are noted in the lumbar spine IMPRESSION: 1. Mild bibasilar linear scarring and/or atelectasis. 2. Aortic atherosclerosis.
[2016-12-18 13:03] LABS: ALBUMIN 3.2 g/dL (3.4-5.0); CALCIUM 9.4 mg/dL (8.5-10.1); CREATININE 0.7 mg/dL (0.7-1.3); GFR 111.8; TOTAL PROTEIN 7.8 g/dL (6.4-8.2)
[2016-12-18 13:04] LABS: DIRECT BILIRUBIN 0.2 mg/dL (0.0-0.2); MAGNESIUM 2.1 mg/dL (1.8-2.4); POTASSIUM 4.5 mmol/L (3.5-5.1); TOTAL BILIRUBIN 0.6 mg/dL (0.2-1.0)
[2016-12-18 13:21] LABS: CKMB MASS 0.6 ng/mL (0.0-3.6)
--- NOTE | 2016-12-18 13:27 | RAD ---
CT of the head without contrast, 12/18/2016: History: Seizure Comparison is made to a study from 10/15/2016. The patient's head is rotated. There is moderate cerebral atrophy. There are moderate patchy lucencies in the deep white matter bilaterally also evident on the previous study. The findings are compatible with chronic ischemic change with old deep white matter infarcts. The ventricles are within normal limits in size. There is no shift of the midline structures. There is no evidence of acute intracranial hemorrhage or mass effect. Tiny bilateral pontine lucencies are also again noted, compatible with old infarcts. IMPRESSION: 1. Cerebral atrophy. 2. 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 3. No acute intracranial abnormality is detected. PQRS Compliance Statement: One or more of the following individualized dose reduction techniques were utilized for this examination: 1. Automated exposure control 2. Adjustment of the mA and/or kV according to patient size 3. Use of iterative reconstruction technique
[2016-12-18 14:58] LABS: BARBITURATES NEG (NEG); BENZODIAZEPINES POS (NEG); CANNABINOIDS NEG (NEG); COCAINE NEG (NEG); METHADONE NEG (NEG); OPIATES NEG (NEG); PHENCYCLIDINE NEG (NEG)
[2016-12-18 15:04] LABS: HCO3 ABG 28 mmol/L (21-28); PCO2 ABG 39 mmHg (35-46); PH ABG 7.47 (7.35-7.45); PO2 ABG 88 mmHg (65-108); SAT O2 ABG 97 % (92-99)
[2016-12-18 15:07] LABS: BILIRUBIN,URINE NEGATIVE (NEG); GLUCOSE,URINE NEGATIVE (NEG); NITRITE,URINE NEGATIVE (NEG); PH,URINE 7.5; PROTEIN,URINE NEGATIVE (NEG-TRACE); UROBILINOGEN,URINE 0.2 mg/dL (0.2 mg/dL)
[2016-12-18 15:29] LABS: BACTERIA,URINE FEW /HPF (0-FEW); RBC,URINE 0 /HPF (0-2); WBC,URINE >40 /HPF (0-4)
[2016-12-18 17:54] VITALS: BP 115/77
== END 2016-12-18 18:04 | disposition home or self-care (01) ==
LOC: ER 12:07
DX: R41.82 Altered mental status, unspecified (principal); I48.91 Unspecified atrial fibrillation; F41.9 Anxiety disorder, unspecified; I50.9 Heart failure, unspecified; J44.9 Chronic obstructive pulmonary disease, unspecified; K21.9 Gastro-esophageal reflux disease without esophagitis; I11.0 Hypertensive heart disease with heart failure; Z86.73 Personal history of transient ischemic attack (TIA), and cerebral infarction without residual deficits; E78.00 Pure hypercholesterolemia, unspecified; Z88.6 Allergy status to analgesic agent
CPT/HCPCS: 36415; 36600; 51702; 70450; 71010; 80048; 80076; 80305; 80320; 81001; 82140; 82553; 82805; 83605; 83735; 83880; 84484; 85027; 85610; 85730; 87040; 87086; 93005; G0481; 99285-25

== ENCOUNTER 2017-02-06 10:57 | Inpatient (IN) | payer MEDICARE, OTHER ==
[~2017-02-06] VITALS: Ht 182.9 cm; Wt 95.7 kg
--- NOTE | 2017-02-06 11:16 | PHYS DOC ---
Past Medical History Past Medical History: A-Fib, Anemia, Anxiety, CHF, COPD, CVA, GERD, High Cholesterol, Hypertension, Pneumonia Additional Past Medical Histor: dysphagia, BPH Past Surgical History: Hip Replacement, Knee Replacement Additional Past Surgical Histo: Peg tube, L hip, R knee Alcohol Use: None Drug Use: None Adult General Chief Complaint Chief Complaint: shortness of breath HPI HPI Patient is a 71 year old male who presents to the emergency department by EMS for shortness of breath. EMS was called to [facility] where the patient currently resides due to shortness of breath. The patient has had symptoms over the past 2-3 days. The patient is currently oriented to self only which is reported to be the patient's baseline, thus he is a poor historian. The patient had a chest x-ray completed yesterday. jail staff stated that the radiologist called and stated that there was evidence of an infiltrate on the patient's chest x-ray concerning for pneumonia. Patient has had increased oxygen requirement and is currently on 4 L to keep oxygen saturations above 92%. Patient has had cough but has had no reported fevers. Patient denies any pain currently. Review of Systems Review of Systems Constitutional: Denies fever or chills [] Eyes: Denies change in visual acuity, redness, or eye pain [] HENT: Denies nasal congestion or sore throat [] Respiratory: Cough, shortness of breath [] Cardiovascular: Denies chest pain [] GI: Denies abdominal pain, nausea, vomiting, bloody stools or diarrhea [] : Denies dysuria or hematuria [] Musculoskeletal: Denies back pain or joint pain [] Integument: Denies rash or skin lesions [] Neurologic: Denies headache, focal weakness or sensory changes [] Current Medications Current Medications Current Medications Medications (Trade) Dose Ordered Sig/Kayden Start Time Stop Time Status Last Admin Dose Admin Levofloxacin/ Dextrose 150 ml @ 100 mls/hr Q24H 02/06/17 12:00 Levofloxacin/ Dextrose (Levaquin Per Pharmacy) 1 each PRN DAILY PRN 02/06/17 11:30 Piperacillin Sod/ Tazobactam Sod (Zosyn Per Pharmacy) 1 each PRN DAILY PRN 02/06/17 11:30 Piperacillin Sod/ Tazobactam Sod 4.5 gm/Sodium Chloride 100 ml @ 200 mls/hr 1X ONCE 02/06/17 12:00 02/06/17 12:29 DC 02/06/17 12:04 200 MLS/HR Sodium Chloride 1,000 ml @ 1,000 mls/hr 1X ONCE 02/06/17 11:30 02/06/17 12:29 DC 02/06/17 12:04 1,000 MLS/HR Vancomycin HCl (Vanco Per Pharmacy) 1 each 1X ONCE 02/06/17 11:30 02/06/17 12:58 DC Vancomycin HCl 1.5 gm/Sodium Chloride 500 ml @ 250 mls/hr 1X ONCE 02/06/17 12:00 02/06/17 13:59 02/06/17 12:41 250 MLS/HR Allergies Allergies Allergies Coded Allergies Type Severity Reaction Last Updated Verified morphine Allergy Intermediate 05/12/16 Yes I S O L A T I O N *CONTACT* Allergy Unknown 05/14/16 Yes Physical Exam Physical Exam Constitutional: Alert, afebrile, cachectic appearance, appears in moderate rest her distress. [] HENT: Normocephalic, atraumatic, bilateral external ears normal, oropharynx dry , no oral exudates, nose normal. [] Eyes: PERRLA, EOMI, conjunctiva normal, no discharge. [] Neck: Normal range of motion, no tenderness, supple, no stridor. [] Cardiovascular:Heart rate regular rhythm, no murmur [] Lungs & Thorax: Prolonged expiratory phase, mild expiratory wheezes bilaterally , rales in left lower lobe, [] Abdomen: Bowel sounds normal, soft, left-sided PEG tube in place, no tenderness , no masses, no pulsatile masses. [] Skin: Warm, dry, no erythema, no rash. [] Back: No tenderness, no CVA tenderness. [] Extremities: Contracted lower extremities, no cyanosis, pulses 2+ distally [] Neurologic: Alert, oriented to self only, contracted lower extremities. [] Current Patient Data Vital Signs Vital Signs Date Time Temp Pulse Resp B/P (MAP) Pulse Ox O2 Delivery O2 Flow Rate FiO2 02/06/17 12:00 78 28 97/65 (76) 93 02/06/17 10:57 98.0 Nasal Cannula 3.0 98.0 Lab Values Laboratory Tests Test 02/06/17 11:17 White Blood Count 4.8 x10^3/uL (4.0-11.0) Red Blood Count 4.15 x10^6/uL (4.30-5.70) L Hemoglobin 14.1 g/dL (13.0-17.5) Hematocrit 41.9 % (39.0-53.0) Mean Corpuscular Volume 101 fL (79-100) H Mean Corpuscular Hemoglobin 34 pg (25-35) Mean Corpuscular Hemoglobin Concent 34 g/dL (31-37) Red Cell Distribution Width 14.4 % (11.5-14.5) Platelet Count 148 x10^3/uL (140-400) Neutrophils (%) (Auto) 73 % (31-73) Lymphocytes (%) (Auto) 13 % (24-48) L Monocytes (%) (Auto) 11 % (0-9) H Eosinophils (%) (Auto) 3 % (0-3) Basophils (%) (Auto) 1 % (0-3) Neutrophils # (Auto) 3.5 x10^3uL (1.8-7.7) Lymphocytes # (Auto) 0.6 x10^3/uL (1.0-4.8) L Monocytes # (Auto) 0.5 x10^3/uL (0.0-1.1) Eosinophils # (Auto) 0.2 x10^3/uL (0.0-0.7) Basophils # (Auto) 0.0 x10^3/uL (0.0-0.2) Sodium Level 143 mmol/L (136-145) Potassium Level 3.4 mmol/L (3.5-5.1) L Chloride Level 105 mmol/L (98-107) Carbon Dioxide Level 34 mmol/L (21-32) H Anion Gap 4 (6-14) L Blood Urea Nitrogen 12 mg/dL (8-26) Creatinine 0.9 mg/dL (0.7-1.3) Estimated GFR (Cockcroft-Gault) 83.7 BUN/Creatinine Ratio 13 (6-20) Glucose Level 136 mg/dL (70-99) H Lactic Acid Level 2.8 mmol/L (0.4-2.0) H Calcium Level 8.8 mg/dL (8.5-10.1) Total Bilirubin 0.5 mg/dL (0.2-1.0) Aspartate Amino Transferase (AST) 29 U/L (15-37) Alanine Aminotransferase (ALT) 30 U/L (16-63) Alkaline Phosphatase 111 U/L (46-116) Total Protein 7.4 g/dL (6.4-8.2) Albumin 3.1 g/dL (3.4-5.0) L Albumin/Globulin Ratio 0.7 (1.0-1.7) L Laboratory Tests 02/06/17 11:17 Laboratory Tests 02/06/17 11:17 EKG EKG Interpreted by me: Heart rate 87, leftward axis, no acute ST elevations or depressions [] Radiology/Procedures Radiology/Procedures [facility] [address] [place] [address] IMAGING REPORT Signed PATIENT: OLI MICHAEL ACCOUNT: [id number] : 1945 LOCATION: ER AGE: 71 SEX: M EXAM STATUS: PRE ER ORD. PHYSICIAN: STERLING BUSBY MD REASON: shortness of breath PROCEDURE: PORTABLE CHEST 1V Portable AP semi upright view CXR: Clinical indications: Shortness of breath. Comparison: December 18, 2016. Findings: There is a new medial left lung base infiltrate. A skin fold projects over the right lateral lung field. Right lung field is otherwise unchanged. No pleural effusion or pneumothorax is seen. The heart size, pulmonary vasculature, mediastinum and both bekah are stable. Impression: Left lung base infiltrate.. DICTATED and SIGNED BY: JAIME LOW MD DATE: 02/06/17 1149 CC: STERLING BUSBY MD; STERLING MCLAIN MD ~ [] Course & Med Decision Making Course & Med Decision Making Pertinent Labs and Imaging studies reviewed. (See chart for details) The patient has evidence of left lower lobe infiltrates on chest x-ray at this time. Patient otherwise has no fevers and does not meet sepsis criteria at this time, however due to worsening hypoxia the patient will require admission and IV antibiotic treatment. Patient was found have elevated lactic acid level which is nonspecific for sepsis and is likely due to dehydration. Patient will be continued on IV fluids and was started on vancomycin, Levaquin and Zosyn for coverage of healthcare associated pneumonia. I spoke with Dr. Pereira who accepted care patient in hospital. Dragon Disclaimer Dragon Disclaimer This electronic medical record was generated, in whole or in part, using a voice recognition dictation system. Departure Departure Impression: Primary Impression: HCAP (healthcare-associated pneumonia) Additional Impressions: Hypoxia Dehydration Disposition: 09 ADMITTED INPATIENT Admitting Physician: Shayna Pereira Condition: GUARDED Referrals: STERLING MCLAIN MD (PCP) Problem Qualifiers STERLING BUSBY MD Feb 06, 2017 11:16
[2017-02-06] MEDS ORDERED: VANCOMYCIN PER PHARMACY MC ONE (11:30)
[2017-02-06] MEDS ORDERED: PIP/TAZO PER PHARMACY MC PRN (11:30)
[2017-02-06] MEDS ORDERED: levOFLOXacin PER PHARMACY. MC PRN (11:30)
[2017-02-06] MEDS ORDERED: IV NORMAL SALINE 1000ML BAG 1,000 ML IV ONE (11:30)
--- NOTE | 2017-02-06 11:53 | RAD ---
Portable AP semi upright view CXR: Clinical indications: Shortness of breath. Comparison: December 18, 2016. Findings: There is a new medial left lung base infiltrate. A skin fold projects over the right lateral lung field. Right lung field is otherwise unchanged. No pleural effusion or pneumothorax is seen. The heart size, pulmonary vasculature, mediastinum and both bekah are stable. Impression: Left lung base infiltrate..
[2017-02-06] MEDS ORDERED: PIPERACILLIN/TAZOBACTAM 4.5 GM in IV NORMAL SALINE 100ML 100 ML IV ONE (12:00)
[2017-02-06] MEDS ORDERED: VANCOMYCIN 1.5 GM in IV NORMAL SALINE 500ML BAG 500 ML IV ONE (12:00)
[2017-02-06 12:10] LABS: BASO % 1 % (0-3); EOS % 3 % (0-3); HEMATOCRIT 41.9 % (39.0-53.0); HEMOGLOBIN 14.1 g/dL (13.0-17.5); LYMPH # 0.6 x10^3/uL (1.0-4.8); LYMPH % 13 % (24-48); MEAN CORPUSCULAR HEMOGLOBIN 34 pg (25-35); MEAN CORPUSCULAR HGB CONC 34 g/dL (31-37); MEAN CORPUSCULAR VOLUME 101 fL (79-100); MONO % 11 % (0-9); NEUT % 73 % (31-73); PLATELET COUNT 148 x10^3/uL (140-400); RED BLOOD COUNT 4.15 x10^6/uL (4.30-5.70); RED CELL DISTRIBUTION WIDTH 14.4 % (11.5-14.5); WHITE BLOOD COUNT 4.8 x10^3/uL (4.0-11.0)
[2017-02-06 12:22] LABS: CALCIUM 8.8 mg/dL (8.5-10.1); CREATININE 0.9 mg/dL (0.7-1.3); GFR 83.7; POTASSIUM 3.4 mmol/L (3.5-5.1)
[2017-02-06 12:28] LABS: ALBUMIN 3.1 g/dL (3.4-5.0); ALBUMIN/GLOBULIN RATIO 0.7 (1.0-1.7); TOTAL BILIRUBIN 0.5 mg/dL (0.2-1.0); TOTAL PROTEIN 7.4 g/dL (6.4-8.2)
[2017-02-06] MEDS: VANCOMYCIN PER PHARMACY MC PRN (13:00)
[2017-02-06] MEDS ORDERED: ONDANSETRON PF 4 MG/2 ML VIAL. IV PRN (13:15)
[2017-02-06] MEDS ORDERED: fentaNYL PF VIAL 100 MCG/2 ML VIAL IV PRN (13:15)
[2017-02-06] MEDS ORDERED: ACETAMINOPHEN 325 MG TABLET. PO PRN (13:15)
[2017-02-06] MEDS ORDERED: POLYETHYLENE GLYCOL 3350 17 GM PACKET. PO PRN (13:45)
[2017-02-06] MEDS ORDERED: diphenhydrAMINE HCL 25 MG CAPSULE PO PRN (13:45)
[2017-02-06] MEDS ORDERED: DOCUSATE SODIUM 100 MG CAPSULE. PO PRN (13:45)
[2017-02-06] MEDS ORDERED: LACTULOSE 20 GM/30 ML SOLUTION. PO PRN (14:00)
[2017-02-06] MEDS ORDERED: METOCLOPRAMIDE 5 MG TABLET. PO SCH (14:00)
[2017-02-06] MEDS ORDERED: busPIRone 5 MG TABLET. PO SCH (14:00)
[2017-02-06] MEDS ORDERED: oxyCODONE ER 10 MG TAB.ER.12H PO SCH (14:00)
[2017-02-06] MEDS ORDERED: DULoxetine HCL 30 MG CAPSULE.DR PO SCH (14:00)
[2017-02-06] MEDS ORDERED: BACLOFEN 10 MG TABLET. PO SCH (14:00)
--- NOTE | 2017-02-06 14:05 | PDOC1 ---
History and Physical Date of Admission Date of Admission DATE: 02/06/17 TIME: 13:54 Identification/Chief Complaint Chief Complaint fevers, cough iN SNU Problems: Source Source: Caregiver, Chart review, Patient History of Present Illness History of Present Illness 71 y.o male, has been a resident Of [facility] for almost a yr ( Mar 2016), fevers, cough, more lethargy at SNU. CXR shows LLL pna in snu. Being treated with abx there, BUt signs and sx persist, hence ER. AT ER, rpt CXR does clearly show LLL PNA, I have personally reviewed. 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 Still full code as dw dtr or grandtr in room. INterestingly, looking at old mAR , has been dcd on PO zyvox to SNU, Dtr relays recurrent PNA, off and on. Pt is fully awake and oriented despite stroke and PEG and left arm contracture, BP on low side, getting 125cc.hr Strictly NPO Gets bolus TF at SNU Past Medical History Cardiovascular: AFIB, CHF, HTN Pulmonary: Pneumonia CENTRAL NERVOUS SYSTEM: CVA GI: Constipation, GERD Heme/Onc: Anemia NOS Psych: Anxiety, Depression Musculoskeletal: low back pain Renal/: Benign prostatic enlarg. Past Surgical History Past Surgical History: No pertinent history Family History Family History: No Significant, Hypertension Social History Smoke: No ALCOHOL: none Drugs: None Current Problem List Problem List Problems Medical Problems: (1) Dehydration Status: Acute (2) HCAP (healthcare-associated pneumonia) Status: Acute (3) Hypoxia Status: Acute Problems: Current Medications Current Medications Current Medications Vancomycin HCl (Vanco Per Pharmacy) 1 each 1X ONCE MC ; Start 02/06/17 at 11:30 ; Stop 02/06/17 at 12:58; Status DC Piperacillin Sod/ Tazobactam Sod (Zosyn Per Pharmacy) 1 each PRN DAILY PRN MC SEE COMMENTS; Start 02/06/17 at 11:30 Levofloxacin/ Dextrose (Levaquin Per Pharmacy) 1 each PRN DAILY PRN MC SEE COMMENTS; Start 02/06/17 at 11:30 Sodium Chloride 1,000 ml @ 1,000 mls/hr 1X ONCE IV Last administered on 12:04; Start 02/06/17 at 11:30; Stop 02/06/17 at 12:29; Status DC Vancomycin HCl 1.5 gm/Sodium Chloride 500 ml @ 250 mls/hr 1X ONCE IV Last administered on 02/06/17 12:41; Start 02/06/17 at 12:00; Stop 02/06/17 at 13:59 Levofloxacin/ Dextrose 150 ml @ 100 mls/hr Q24H IV ; Start 02/06/17 at 12:00 Piperacillin Sod/ Tazobactam Sod 4.5 gm/Sodium Chloride 100 ml @ 200 mls/hr 1X ONCE IV Last administered on 02/06/17 12:04; Start 02/06/17 at 12:00; Stop 02/06/17 at 12:29; Status DC Vancomycin HCl 1 gm/Sodium Chloride 250 ml @ 250 mls/hr Q24H IV ; Start at 13:00 Vancomycin HCl 1 each 1X ONCE MC ; Start 02/08/17 at 12:30; Stop 02/08/17 at 12 :31 Vancomycin HCl (Vanco Per Pharmacy) 1 each PRN DAILY PRN MC . Last administered on 02/06/17 13:00; Start 02/06/17 at 13:00 Ondansetron HCl (Zofran) 4 mg PRN Q8HRS PRN IV NAUSEA/VOMITING; Start 02/06/17 at 13:15; Stop 02/07/17 at 13:14 Fentanyl Citrate (Fentanyl 2ml Vial) 50 mcg PRN Q2HR PRN IV PAIN; Start at 13:15; Stop 02/07/17 at 13:14 Sodium Chloride 1,000 ml @ 125 mls/hr Q8H IV ; Start 02/06/17 at 13:02; Stop at 13:01 Acetaminophen (Tylenol) 650 mg PRN Q4HRS PRN PO FEVER; Start 02/06/17 at 13:15 ; Stop 02/07/17 at 13:14 Albuterol/ Ipratropium (Duoneb) 3 ml RTQID NEB ; Start 02/06/17 at 16:00; Stop 02/06/17 at 16:00; Status DC Lorazepam (Ativan) 1 mg PRN Q4HRS PRN IV ANXIETY / AGITATION; Start 02/06/17 at 13:15 Piperacillin Sod/ Tazobactam Sod 4.5 gm/Sodium Chloride 100 ml @ 200 mls/hr Q6HRS IV ; Start 02/06/17 at 18:00 Alprazolam (Xanax) 0.5 mg PRN Q4HRS PRN PO ANXIETY / AGITATION; Start 02/06/17 at 13:45 Atorvastatin Calcium (Lipitor) 40 mg HS PO ; Start 02/06/17 at 21:00 Baclofen (Lioresal) 10 mg TID PO ; Start 02/06/17 at 14:00 Carvedilol (Coreg) 6.25 mg BIDWMEALS PO ; Start 02/06/17 at 17:00 Diltiazem HCl (Cardizem 24hr Cd) 120 mg DAILY PO ; Start 02/06/17 at 14:00 Diphenhydramine HCl (Benadryl) 50 mg PRN Q4HRS PRN PO ITCHING; Start 02/06/17 at 13:45 Docusate Sodium (Colace) 100 mg PRN BID PRN PO CONSTIPATION; Start 02/06/17 at 13:45 Famotidine (Pepcid) 20 mg BID PO ; Start 02/06/17 at 21:00 Guaifenesin (Mucinex) 600 mg BID PO ; Start 02/06/17 at 14:00 Albuterol/ Ipratropium (Duoneb) 3 ml RTQID NEB ; Start 02/06/17 at 16:00 Metoclopramide HCl (Reglan) 5 mg TIDAC PO ; Start 02/06/17 at 14:00 Oxybutynin Chloride (Ditropan) 5 mg BID PO ; Start 02/06/17 at 14:00 Oxycodone HCl (OxyCONTIN) 10 mg BID PO ; Start 02/06/17 at 14:00 Polyethylene Glycol (miraLAX PACKET) 17 gm PRN DAILY PRN PO CONSTIPATION; Start 02/06/17 at 13:45 Scopolamine (Transderm-Scop) 1 patch Q3DAYS TD ; Start 02/06/17 at 14:00 Buspirone HCl (Buspar) 15 mg TID PO ; Start 02/06/17 at 14:00 Duloxetine HCl (Cymbalta) 60 mg DAILY PO ; Start 02/06/17 at 14:00 Lactulose 10 gm PRN DAILY PRN PO CONSTIPATION; Start 02/06/17 at 14:00 Mirtazapine (Remeron) 30 mg QHS PO ; Start 02/06/17 at 21:00 Ondansetron HCl (Zofran Odt) 4 mg PRN Q8HRS PRN PO NAUSEA; Start 02/06/17 at 14 :00 Oxycodone HCl (Roxicodone) 5 mg PRN Q6HRS PRN PO PAIN; Start 02/06/17 at 14:00 Rivaroxaban (Xarelto) 20 mg DAILYWSUP PO ; Start 02/06/17 at 17:00 Active Scripts Active Reported Cephalexin 500 Mg Capsule 1 Cap PO BID 7 Days Carvedilol 6.25 Mg Tablet 6.25 Mg PO BIDWMEALS Banophen (Diphenhydramine Hcl) 25 Mg Capsule 50 Mg PO PRN Q4HRS PRN Zosyn 4.5 Gm Pre-Mix Bag (Htimrmdkftcf-Szsb-Mznvazhp,Iso) 4.5 Gm/100 Ml Froz.piggy 4.5 Gm IV Q6HRS 4 Days Zyvox (Linezolid) 600 Mg Tablet 600 Mg PEG BID 4 Days Tylenol (Acetaminophen) 325 Mg Tablet 1 Tab PO PRN Q4HRS Reglan (Metoclopramide Hcl) 5 Mg Tablet 5 Mg PO TID Mucus ER (Guaifenesin) 600 Mg Tab.er.12h 600 Mg PO BID Famotidine 20 Mg Tablet 20 Mg PO BID Duoneb 0.5-3(2.5) Mg/3 Ml (Albuterol/Ipratropium) 3 Ml Ampul.neb 3 Ml NEB QID Xarelto (Rivaroxaban) 20 Mg Tablet 20 Mg PO DAILY Transderm-Scop (Scopolamine) 1 Each Patch.td72 1 Patch TP Q3DAYS Oxycontin (Oxycodone HCl) 10 Mg Tab.er.12h 10 Mg PO BID Oxycodone Hcl 5 Mg Capsule 1 Cap PO PRN Q6HRS PRN Oxybutynin Chloride 5 Mg Tablet 1 Tab PO BID Ondansetron Hcl 4 Mg Tablet 1 Tab PO PRN Q8HRS PRN Mirtazapine 30 Mg Tablet 1 Tab PO QHS Miralax (Polyethylene Glycol 3350) 17 Gm Powd.pack 1 Pkt PO PRN DAILY PRN Lactulose 20 Gm/30 Ml Solution 10 Gm PO PRN DAILY PRN Docusate Sodium 100 Mg Capsule 1 Cap PO PRN BID PRN Diltiazem 24HR Cd (Diltiazem Hcl) 120 Mg Cap.er.24h 120 Mg PO DAILY Cymbalta (Duloxetine Hcl) 60 Mg Capsule.dr 60 Mg PO DAILY Buspirone Hcl 15 Mg Tablet 15 Mg PO TID Baclofen 10 Mg Tablet 10 Mg PO TID Atorvastatin Calcium 40 Mg Tablet 40 Mg PO HS Alprazolam 0.5 Mg Tablet 1 Tab PO PRN Q4HRS PRN Allergies Allergies: Coded Allergies: morphine (Verified Allergy, Intermediate, 05/12/16) I S O L A T I O N *CONTACT* (Verified Allergy, Unknown, 05/14/16) mrsa ROS Review of System cough, fever, chills, weak, sputum, all else is neg Physical Exam General: Oriented X3, Cooperative, No acute distress HEENT: Atraumatic, PERRLA Lungs: Normal air movement, Other (dec BS bases, dullness to percussion LLL) Heart: S1S2, RRR, no thrills, no rubs Cardiovascular: S1, S2 Abdomen: Soft, Other (indwelling PEG) Extremities: No clubbing, No cyanosis, No edema, Normal pulses, No tenderness/ swelling Skin: Other (2 dime sized decub R buttock) Neuro: Normal gait, Normal speech, Strength at 5/5 X4 ext, Normal tone, Sensation intact, Cranial nerves 3-12 NL, Reflexes 2+ Psych/Mental Status: Mental status NL, Mood NL Vitals Vitals Vital Signs Date Time Temp Pulse Resp B/P (MAP) Pulse Ox O2 Delivery O2 Flow Rate FiO2 02/06/17 12:30 76 29 101/58 (72) 96 02/06/17 10:57 98.0 Nasal Cannula 3.0 98.0 Labs Labs Laboratory Tests Test 02/06/17 11:17 White Blood Count 4.8 x10^3/uL (4.0-11.0) Red Blood Count 4.15 x10^6/uL (4.30-5.70) Hemoglobin 14.1 g/dL (13.0-17.5) Hematocrit 41.9 % (39.0-53.0) Mean Corpuscular Volume 101 fL (79-100) Mean Corpuscular Hemoglobin 34 pg (25-35) Mean Corpuscular Hemoglobin Concent 34 g/dL (31-37) Red Cell Distribution Width 14.4 % (11.5-14.5) Platelet Count 148 x10^3/uL (140-400) Neutrophils (%) (Auto) 73 % (31-73) Lymphocytes (%) (Auto) 13 % (24-48) Monocytes (%) (Auto) 11 % (0-9) Eosinophils (%) (Auto) 3 % (0-3) Basophils (%) (Auto) 1 % (0-3) Neutrophils # (Auto) 3.5 x10^3uL (1.8-7.7) Lymphocytes # (Auto) 0.6 x10^3/uL (1.0-4.8) Monocytes # (Auto) 0.5 x10^3/uL (0.0-1.1) Eosinophils # (Auto) 0.2 x10^3/uL (0.0-0.7) Basophils # (Auto) 0.0 x10^3/uL (0.0-0.2) Sodium Level 143 mmol/L (136-145) Potassium Level 3.4 mmol/L (3.5-5.1) Chloride Level 105 mmol/L (98-107) Carbon Dioxide Level 34 mmol/L (21-32) Anion Gap 4 (6-14) Blood Urea Nitrogen 12 mg/dL (8-26) Creatinine 0.9 mg/dL (0.7-1.3) Estimated GFR (Cockcroft-Gault) 83.7 BUN/Creatinine Ratio 13 (6-20) Glucose Level 136 mg/dL (70-99) Lactic Acid Level 2.8 mmol/L (0.4-2.0) Calcium Level 8.8 mg/dL (8.5-10.1) Total Bilirubin 0.5 mg/dL (0.2-1.0) Aspartate Amino Transf (AST/SGOT) 29 U/L (15-37) Alanine Aminotransferase (ALT/SGPT) 30 U/L (16-63) Alkaline Phosphatase 111 U/L (46-116) Total Protein 7.4 g/dL (6.4-8.2) Albumin 3.1 g/dL (3.4-5.0) Albumin/Globulin Ratio 0.7 (1.0-1.7) Laboratory Tests Test 02/06/17 11:17 White Blood Count 4.8 x10^3/uL (4.0-11.0) Red Blood Count 4.15 x10^6/uL (4.30-5.70) Hemoglobin 14.1 g/dL (13.0-17.5) Hematocrit 41.9 % (39.0-53.0) Mean Corpuscular Volume 101 fL (79-100) Mean Corpuscular Hemoglobin 34 pg (25-35) Mean Corpuscular Hemoglobin Concent 34 g/dL (31-37) Red Cell Distribution Width 14.4 % (11.5-14.5) Platelet Count 148 x10^3/uL (140-400) Neutrophils (%) (Auto) 73 % (31-73) Lymphocytes (%) (Auto) 13 % (24-48) Monocytes (%) (Auto) 11 % (0-9) Eosinophils (%) (Auto) 3 % (0-3) Basophils (%) (Auto) 1 % (0-3) Neutrophils # (Auto) 3.5 x10^3uL (1.8-7.7) Lymphocytes # (Auto) 0.6 x10^3/uL (1.0-4.8) Monocytes # (Auto) 0.5 x10^3/uL (0.0-1.1) Eosinophils # (Auto) 0.2 x10^3/uL (0.0-0.7) Basophils # (Auto) 0.0 x10^3/uL (0.0-0.2) Sodium Level 143 mmol/L (136-145) Potassium Level 3.4 mmol/L (3.5-5.1) Chloride Level 105 mmol/L (98-107) Carbon Dioxide Level 34 mmol/L (21-32) Anion Gap 4 (6-14) Blood Urea Nitrogen 12 mg/dL (8-26) Creatinine 0.9 mg/dL (0.7-1.3) Estimated GFR (Cockcroft-Gault) 83.7 BUN/Creatinine Ratio 13 (6-20) Glucose Level 136 mg/dL (70-99) Lactic Acid Level 2.8 mmol/L (0.4-2.0) Calcium Level 8.8 mg/dL (8.5-10.1) Total Bilirubin 0.5 mg/dL (0.2-1.0) Aspartate Amino Transf (AST/SGOT) 29 U/L (15-37) Alanine Aminotransferase (ALT/SGPT) 30 U/L (16-63) Alkaline Phosphatase 111 U/L (46-116) Total Protein 7.4 g/dL (6.4-8.2) Albumin 3.1 g/dL (3.4-5.0) Albumin/Globulin Ratio 0.7 (1.0-1.7) VTE Prophylaxis Ordered VTE Prophylaxis Devices: Yes VTE Pharmacological Prophylaxi: Yes Assessment/Plan Assessment/Plan 1. SIRS infectious in etiology, with target organ, HYPOTENSION 2. NO sepsis yet 3. BEATRIS sec to poor po, dehydration 4. 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 Indwelling PEG 6. Mild to MOd pcm 7. Hypokalemia 8. Grade 1-2 R buttock sore 9,.FULL CODE PLAN: Admit in pt HAP coverage GIven hx of recurrent PNA, was on PO zyvox in snu at one point, consult ID [email or web address] cancel pulmo consult COnt eliquis (for DVt protection too and was started since the CVA) Nutrition consult for TF IVF aggressive for now, might be able to dec rate gavin Resume home meds Hold off BP meds- HYPOtensive Send for sputum if able Scopolamine patch PT/OT Wound care for the sacral sore Replace K via PEG Check if PEG functioning ok Full code Dw family and RN at bedside NATHALY SUBRAMANIAN MD Feb 06, 2017 14:05
[2017-02-06] MEDS ORDERED: POTASSIUM CHLORIDE 20 MEQ/15 ML ORAL LIQUID. PEG ONE (14:15)
[2017-02-06] MEDS: IPRATRPIUM/ALBUTEROL 0.5/2.5MG 3 ML NEBU. NEB SCH ×2 (14:49→19:43)
[2017-02-06 15:00] VITALS: BP 98/60
[2017-02-06] MEDS: SCOPOLAMINE 1.5MG PATCH. TD SCH (15:37)
[2017-02-06] MEDS: CHLORHEXIDINE 0.12% 15 ML MOUTHWASH. SWSP SCH ×2 (15:37→20:47)
[2017-02-06] MEDS: IV NORMAL SALINE 1000ML BAG 1,000 ML IV SCH ×2 (15:38→21:02)
[2017-02-06] MEDS: OXYBUTYNIN CHLORIDE 5 MG TABLET PO SCH ×2 (15:38→20:47)
[2017-02-06] MEDS: RIVAROXABAN 10 MG TABLET. PO SCH (15:55)
[2017-02-06 16:00] VITALS: BP 93/59
[2017-02-06] MEDS ORDERED: IPRATRPIUM/ALBUTEROL 0.5/2.5MG 3 ML NEBU. NEB SCH (16:00)
[2017-02-06] MEDS ORDERED: CARVEDILOL 6.25 MG TABLET. PO SCH (17:00)
[2017-02-06] MEDS: PIPERACILLIN/TAZOBACTAM 4.5 GM in IV NORMAL SALINE 100ML 100 ML IV SCH ×2 (17:41→23:54)
[2017-02-06 19:00] VITALS: BP 130/76
[2017-02-06] MEDS: MIRTAZAPINE 15 MG TABLET PO SCH (20:46)
[2017-02-06] MEDS: FAMOTIDINE 20 MG TABLET. PO SCH (20:47)
[2017-02-06] MEDS ORDERED: ATORVASTATIN CALCIUM 40 MG TABLET. PO SCH (21:00)
[2017-02-06 23:00] VITALS: BP 115/74
--- NOTE | 2017-02-07 01:43 | ACF ---
Admission Forms Criteria PNEUMONIA, HOSPITAL-ACQUIRED AND ATELECTASIS Clinical Indications for Inpatient Care (Place 'X' for any and all applicable criteria): Ongoing inpatient care may be indicated for hospital-acquired atelectasis or pneumonia[N] with ANY ONE of the following(2)(5)(47)(48)(49): [ ]I. Mechanical ventilation [N] [ ]II. Temperature less than 35 degrees C (95 degrees F) or greater than 39.5 degrees C (103.1 degrees F) [ ]III. Tachypnea (eg, respiratory rate greater than 30 breaths per minute) [X ]IV. Hemodynamic instability [ ]V. Respiratory distress [ ]. Significant hypoxemia as indicated by ANY ONE of the following: [ ]a) Previously normal respiratory status with ANY ONE of the following: [ ]i) SaO2 less than 90% or PO2 less than 60 mm Hg (8.0 kPa )) on room air [ ]ii) Oxygen required to keep SaO2 greater than 90% [ ]b) Chronic baseline hypoxemia with significant deterioration (eg, O2 saturation decrease more than 5%) [ ]c) Required supplemental oxygen performable only in acute inpatient setting [ ]VII. Significant hypoventilation as indicated by ANY ONE of the following: [ ]a) Previously normal with PCO2 greater than 42 mm Hg (5.6 kPa) and pH less than 7.35 [ ]b) Documented PCO2 increase greater than 5 mm Hg (0.7 kPa) from disease baseline [ ]VIII.Severe secretion production requiring frequent suctioning Extended stay beyond goal length of stay for primary condition may be needed until ALL of the following are present(28)(29): [ ]a) Microbiologic cause of infection identified and appropriate antibiotic treatment in place, or satisfactory clinical response to empiric antibiotic therapy [ ]b) Hemodynamic stability [ ]c) No requirement for supplemental oxygen performable only in acute inpatient setting [ ]d) Chest tube absent or chest catheter management regimen established for next level of care [ ]e) Suctioning, pulmonary toilet, or other therapy performable at a lower level of care [ ]f) Fever absent, improved, or manageable at lower level of care [ ]g) Medical comorbidities manageable at a lower level of care The original [facility] content created by [employer] has been revised. The portions of the content which have been revised are identified through the use of italic text or in bold, and [facility] has neither reviewed nor approved the modified material. All other unmodified content is copyright [facility] Please see references footnoted in the original [facility] edition 2016 Admission Criteria Met?: Yes REENA VARGAS Feb 07, 2017 01:43
[2017-02-07] MEDS: ALPRAZolam 0.5 MG TABLET PO PRN ×2 (01:55→17:17)
[2017-02-07] MEDS: IV NORMAL SALINE 1000ML BAG 1,000 ML IV SCH (02:49)
[2017-02-07 03:00] VITALS: BP 99/58
[2017-02-07 05:11] LABS: BASO % 1 % (0-3); EOS % 1 % (0-3); HEMATOCRIT 38.9 % (39.0-53.0); LYMPH # 0.4 x10^3/uL (1.0-4.8); LYMPH % 4 % (24-48); MEAN CORPUSCULAR HEMOGLOBIN 34 pg (25-35); MEAN CORPUSCULAR HGB CONC 33 g/dL (31-37); MEAN CORPUSCULAR VOLUME 101 fL (79-100); MONO % 10 % (0-9); NEUT % 85 % (31-73); PLATELET COUNT 166 x10^3/uL (140-400); RED BLOOD COUNT 3.85 x10^6/uL (4.30-5.70); RED CELL DISTRIBUTION WIDTH 14.5 % (11.5-14.5); WHITE BLOOD COUNT 9.2 x10^3/uL (4.0-11.0)
[2017-02-07 05:29] LABS: CALCIUM 8.8 mg/dL (8.5-10.1); CREATININE 0.9 mg/dL (0.7-1.3); GFR 83.7
[2017-02-07] MEDS: PIPERACILLIN/TAZOBACTAM 4.5 GM in IV NORMAL SALINE 100ML 100 ML IV SCH ×4 (06:10→23:53)
[2017-02-07] MEDS: IPRATRPIUM/ALBUTEROL 0.5/2.5MG 3 ML NEBU. NEB SCH ×4 (06:59→19:59)
[2017-02-07 07:00] VITALS: BP 102/63
[2017-02-07] MEDS: VANCOMYCIN PER PHARMACY MC PRN ×2 (07:14→07:20)
[2017-02-07 08:02] LABS: BILIRUBIN,URINE NEGATIVE (NEG); GLUCOSE,URINE NEGATIVE (NEG); NITRITE,URINE POSITIVE (NEG); PROTEIN,URINE NEGATIVE (NEG-TRACE); UROBILINOGEN,URINE 0.2 mg/dL (0.2 mg/dL)
[2017-02-07 08:03] LABS: BACTERIA,URINE FEW /HPF (0-FEW); WBC,URINE TNTC /HPF (0-4)
[2017-02-07] MEDS: CHLORHEXIDINE 0.12% 15 ML MOUTHWASH. SWSP SCH ×2 (08:56→20:06)
[2017-02-07] MEDS: FAMOTIDINE 20 MG TABLET. PO SCH ×2 (08:56→20:06)
[2017-02-07] MEDS: VANCOMYCIN 750 MG in IV NORMAL SALINE 250ML 250 ML IV SCH ×2 (08:56→20:05)
[2017-02-07] MEDS: OXYBUTYNIN CHLORIDE 5 MG TABLET PO SCH ×2 (08:56→20:06)
--- NOTE | 2017-02-07 09:15 | EKG ---
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
[2017-02-07 10:00] LABS: PLT ESTIMATE ADEQUATE (ADEQUATE)
--- NOTE | 2017-02-07 10:13 | PDOC ---
Infectious Disease Note Vital Sign Vital Signs Vital Signs Date Time Temp Pulse Resp B/P (MAP) Pulse Ox O2 Delivery O2 Flow Rate FiO2 02/07/17 07:02 94 Nasal Cannula 2.0 02/07/17 07:00 97.6 69 18 102/63 (76) 97.6 Labs Lab Laboratory Tests Test 02/06/17 11:17 02/06/17 11:29 02/06/17 14:29 02/07/17 04:00 White Blood Count 4.8 x10^3/uL (4.0-11.0) 9.2 x10^3/uL (4.0-11.0) Red Blood Count 4.15 x10^6/uL (4.30-5.70) 3.85 x10^6/uL (4.30-5.70) Hemoglobin 14.1 g/dL (13.0-17.5) 13.0 g/dL (13.0-17.5) Hematocrit 41.9 % (39.0-53.0) 38.9 % (39.0-53.0) Mean Corpuscular Volume 101 fL (79-100) 101 fL (79-100) Mean Corpuscular Hemoglobin 34 pg (25-35) 34 pg (25-35) Mean Corpuscular Hemoglobin Concent 34 g/dL (31-37) 33 g/dL (31-37) Red Cell Distribution Width 14.4 % (11.5-14.5) 14.5 % (11.5-14.5) Platelet Count 148 x10^3/uL (140-400) 166 x10^3/uL (140-400) Neutrophils (%) (Auto) 73 % (31-73) 85 % (31-73) Lymphocytes (%) (Auto) 13 % (24-48) 4 % (24-48) Monocytes (%) (Auto) 11 % (0-9) 10 % (0-9) Eosinophils (%) (Auto) 3 % (0-3) 1 % (0-3) Basophils (%) (Auto) 1 % (0-3) 1 % (0-3) Neutrophils # (Auto) 3.5 x10^3uL (1.8-7.7) 7.8 x10^3uL (1.8-7.7) Lymphocytes # (Auto) 0.6 x10^3/uL (1.0-4.8) 0.4 x10^3/uL (1.0-4.8) Monocytes # (Auto) 0.5 x10^3/uL (0.0-1.1) 0.9 x10^3/uL (0.0-1.1) Eosinophils # (Auto) 0.2 x10^3/uL (0.0-0.7) 0.1 x10^3/uL (0.0-0.7) Basophils # (Auto) 0.0 x10^3/uL (0.0-0.2) 0.0 x10^3/uL (0.0-0.2) Sodium Level 143 mmol/L (136-145) 145 mmol/L (136-145) Potassium Level 3.4 mmol/L (3.5-5.1) 4.0 mmol/L (3.5-5.1) Chloride Level 105 mmol/L (98-107) 110 mmol/L (98-107) Carbon Dioxide Level 34 mmol/L (21-32) 27 mmol/L (21-32) Anion Gap 4 (6-14) 8 (6-14) Blood Urea Nitrogen 12 mg/dL (8-26) 9 mg/dL (8-26) Creatinine 0.9 mg/dL (0.7-1.3) 0.9 mg/dL (0.7-1.3) Estimated GFR (Cockcroft-Gault) 83.7 83.7 BUN/Creatinine Ratio 13 (6-20) Glucose Level 136 mg/dL (70-99) 78 mg/dL (70-99) Lactic Acid Level 2.8 mmol/L (0.4-2.0) Calcium Level 8.8 mg/dL (8.5-10.1) 8.8 mg/dL (8.5-10.1) Total Bilirubin 0.5 mg/dL (0.2-1.0) Aspartate Amino Transf (AST/SGOT) 29 U/L (15-37) Alanine Aminotransferase (ALT/SGPT) 30 U/L (16-63) Alkaline Phosphatase 111 U/L (46-116) Total Protein 7.4 g/dL (6.4-8.2) Albumin 3.1 g/dL (3.4-5.0) Albumin/Globulin Ratio 0.7 (1.0-1.7) Urine Collection Type Unknown Urine Color Yellow Urine Clarity Cloudy Urine pH 7.0 Urine Specific [place] 1.010 Urine Protein Negative mg/dL (NEG-TRACE) Urine Glucose (UA) Negative mg/dL (NEG) Urine Ketones (Stick) Negative mg/dL (NEG) Urine Blood Small (NEG) Urine Nitrite Positive (NEG) Urine Bilirubin Negative (NEG) Urine Urobilinogen Dipstick 0.2 mg/dL (0.2 mg/dL) Urine Leukocyte Esterase Large (NEG) Urine RBC 6-10 /HPF (0-2) Urine WBC Tntc /HPF (0-4) Urine Bacteria Few /HPF (0-FEW) Glucose (Fingerstick) 110 mg/dL (70-99) Test 02/07/17 07:45 Lactic Acid Level 1.1 mmol/L (0.4-2.0) Objective Assessment HCAP (recent Zyvox and Keflex) GPC bacteremia, POA UTI, POA Lactic acidosis, better h/o CVA w/ hemiplegia and dysphagia h/o seizures h/o MRSA Plan Plan of Care Vanc, Zosyn and Levaquin f/u cultures Monitor labs Local wound care and off load Thank you [phone] Attending Co-Sign The patient was seen and interviewed as well as examined at the bedside. The chart was reviewed. The case was discussed. Agree with the plan of care. SARA MAYA APRN Feb 07, 2017 10:13 CAROLINE DASH MD Feb 07, 2017 11:40
[2017-02-07] MEDS: oxyCODONE IR 5 MG TABLET PO PRN ×2 (10:57→17:04)
[2017-02-07] MEDS: ONDANSETRON ODT 4 MG TAB.RAPDIS. PO PRN (10:57)
[2017-02-07 11:00] VITALS: BP 105/71
[2017-02-07] MEDS ORDERED: VANCOMYCIN 1 GM in IV NORMAL SALINE 250ML 250 ML IV SCH (13:00)
--- NOTE | 2017-02-07 13:36 | PDOC ---
PROGRESS NOTES Chief Complaint Chief Complaint Hospital/Community Acquired Pneumonia Shortness of breath Fever Cough Lethargy History of Present Illness History of Present Illness Patient was resting. Appeared to be in NAD. Patient was coughing. Vitals Vitals Vital Signs Date Time Temp Pulse Resp B/P (MAP) Pulse Ox O2 Delivery O2 Flow Rate FiO2 02/07/17 11:07 Nasal Cannula 2.0 02/07/17 11:00 97.6 80 105/71 (82) 88 97.6 02/07/17 07:00 18 Physical Exam General: Oriented X3, Cooperative, No acute distress Heart: Regular rate, No murmurs Lungs: Crackles, Other Abdomen: Soft, Other (indwelling PEG) Extremities: No clubbing, No cyanosis, No edema, Normal pulses, No tenderness/ swelling Skin: No rashes, Other (2 dime sized decub R buttock) Labs LABS Laboratory Tests Test 02/06/17 14:29 02/07/17 04:00 02/07/17 07:45 Glucose (Fingerstick) 110 mg/dL (70-99) White Blood Count 9.2 x10^3/uL (4.0-11.0) Red Blood Count 3.85 x10^6/uL (4.30-5.70) Hemoglobin 13.0 g/dL (13.0-17.5) Hematocrit 38.9 % (39.0-53.0) Mean Corpuscular Volume 101 fL (79-100) Mean Corpuscular Hemoglobin 34 pg (25-35) Mean Corpuscular Hemoglobin Concent 33 g/dL (31-37) Red Cell Distribution Width 14.5 % (11.5-14.5) Platelet Count 166 x10^3/uL (140-400) Neutrophils (%) (Auto) 85 % (31-73) Lymphocytes (%) (Auto) 4 % (24-48) Monocytes (%) (Auto) 10 % (0-9) Eosinophils (%) (Auto) 1 % (0-3) Basophils (%) (Auto) 1 % (0-3) Neutrophils # (Auto) 7.8 x10^3uL (1.8-7.7) Lymphocytes # (Auto) 0.4 x10^3/uL (1.0-4.8) Monocytes # (Auto) 0.9 x10^3/uL (0.0-1.1) Eosinophils # (Auto) 0.1 x10^3/uL (0.0-0.7) Basophils # (Auto) 0.0 x10^3/uL (0.0-0.2) Segmented Neutrophils % 85 % (35-66) Band Neutrophils % 3 % (0-9) Lymphocytes % 5 % (24-48) Monocytes % 7 % (0-10) Platelet Estimate Adequate (ADEQUATE) Sodium Level 145 mmol/L (136-145) Potassium Level 4.0 mmol/L (3.5-5.1) Chloride Level 110 mmol/L (98-107) Carbon Dioxide Level 27 mmol/L (21-32) Anion Gap 8 (6-14) Blood Urea Nitrogen 9 mg/dL (8-26) Creatinine 0.9 mg/dL (0.7-1.3) Estimated GFR (Cockcroft-Gault) 83.7 Glucose Level 78 mg/dL (70-99) Calcium Level 8.8 mg/dL (8.5-10.1) Lactic Acid Level 1.1 mmol/L (0.4-2.0) Review of Systems Review of Systems Weakness. Boredom. Assessment and Plan Assessmemt and Plan Problems Medical Problems: (1) Dehydration Status: Acute (2) HCAP (healthcare-associated pneumonia) Status: Acute (3) Hypoxia Status: Acute Assessment: Hospital/Community Acquired Pneumonia Shortness of breath Fever Cough Lethargy Plan: 1. Consulting with pulmonology (Dr. Smith) 2. Continue Zosyn and Vancomycin 3. Continue nebulizer therapy 4. PT/OT 5. Recheck labs 6. Home meds Problems: Comment Review of Relevant I have reviewed the following items sarai (where applicable) has been applied. Labs Laboratory Tests Test 02/06/17 11:17 02/06/17 11:29 02/06/17 14:29 02/07/17 04:00 White Blood Count 4.8 x10^3/uL (4.0-11.0) 9.2 x10^3/uL (4.0-11.0) Red Blood Count 4.15 x10^6/uL (4.30-5.70) 3.85 x10^6/uL (4.30-5.70) Hemoglobin 14.1 g/dL (13.0-17.5) 13.0 g/dL (13.0-17.5) Hematocrit 41.9 % (39.0-53.0) 38.9 % (39.0-53.0) Mean Corpuscular Volume 101 fL (79-100) 101 fL (79-100) Mean Corpuscular Hemoglobin 34 pg (25-35) 34 pg (25-35) Mean Corpuscular Hemoglobin Concent 34 g/dL (31-37) 33 g/dL (31-37) Red Cell Distribution Width 14.4 % (11.5-14.5) 14.5 % (11.5-14.5) Platelet Count 148 x10^3/uL (140-400) 166 x10^3/uL (140-400) Neutrophils (%) (Auto) 73 % (31-73) 85 % (31-73) Lymphocytes (%) (Auto) 13 % (24-48) 4 % (24-48) Monocytes (%) (Auto) 11 % (0-9) 10 % (0-9) Eosinophils (%) (Auto) 3 % (0-3) 1 % (0-3) Basophils (%) (Auto) 1 % (0-3) 1 % (0-3) Neutrophils # (Auto) 3.5 x10^3uL (1.8-7.7) 7.8 x10^3uL (1.8-7.7) Lymphocytes # (Auto) 0.6 x10^3/uL (1.0-4.8) 0.4 x10^3/uL (1.0-4.8) Monocytes # (Auto) 0.5 x10^3/uL (0.0-1.1) 0.9 x10^3/uL (0.0-1.1) Eosinophils # (Auto) 0.2 x10^3/uL (0.0-0.7) 0.1 x10^3/uL (0.0-0.7) Basophils # (Auto) 0.0 x10^3/uL (0.0-0.2) 0.0 x10^3/uL (0.0-0.2) Sodium Level 143 mmol/L (136-145) 145 mmol/L (136-145) Potassium Level 3.4 mmol/L (3.5-5.1) 4.0 mmol/L (3.5-5.1) Chloride Level 105 mmol/L (98-107) 110 mmol/L (98-107) Carbon Dioxide Level 34 mmol/L (21-32) 27 mmol/L (21-32) Anion Gap 4 (6-14) 8 (6-14) Blood Urea Nitrogen 12 mg/dL (8-26) 9 mg/dL (8-26) Creatinine 0.9 mg/dL (0.7-1.3) 0.9 mg/dL (0.7-1.3) Estimated GFR (Cockcroft-Gault) 83.7 83.7 BUN/Creatinine Ratio 13 (6-20) Glucose Level 136 mg/dL (70-99) 78 mg/dL (70-99) Lactic Acid Level 2.8 mmol/L (0.4-2.0) Calcium Level 8.8 mg/dL (8.5-10.1) 8.8 mg/dL (8.5-10.1) Total Bilirubin 0.5 mg/dL (0.2-1.0) Aspartate Amino Transf (AST/SGOT) 29 U/L (15-37) Alanine Aminotransferase (ALT/SGPT) 30 U/L (16-63) Alkaline Phosphatase 111 U/L (46-116) Total Protein 7.4 g/dL (6.4-8.2) Albumin 3.1 g/dL (3.4-5.0) Albumin/Globulin Ratio 0.7 (1.0-1.7) Urine Collection Type Unknown Urine Color Yellow Urine Clarity Cloudy Urine pH 7.0 Urine Specific [place] 1.010 Urine Protein Negative mg/dL (NEG-TRACE) Urine Glucose (UA) Negative mg/dL (NEG) Urine Ketones (Stick) Negative mg/dL (NEG) Urine Blood Small (NEG) Urine Nitrite Positive (NEG) Urine Bilirubin Negative (NEG) Urine Urobilinogen Dipstick 0.2 mg/dL (0.2 mg/dL) Urine Leukocyte Esterase Large (NEG) Urine RBC 6-10 /HPF (0-2) Urine WBC Tntc /HPF (0-4) Urine Bacteria Few /HPF (0-FEW) Glucose (Fingerstick) 110 mg/dL (70-99) Segmented Neutrophils % 85 % (35-66) Band Neutrophils % 3 % (0-9) Lymphocytes % 5 % (24-48) Monocytes % 7 % (0-10) Platelet Estimate Adequate (ADEQUATE) Test 02/07/17 07:45 Lactic Acid Level 1.1 mmol/L (0.4-2.0) Laboratory Tests Test 02/06/17 14:29 02/07/17 04:00 02/07/17 07:45 Glucose (Fingerstick) 110 mg/dL (70-99) White Blood Count 9.2 x10^3/uL (4.0-11.0) Red Blood Count 3.85 x10^6/uL (4.30-5.70) Hemoglobin 13.0 g/dL (13.0-17.5) Hematocrit 38.9 % (39.0-53.0) Mean Corpuscular Volume 101 fL (79-100) Mean Corpuscular Hemoglobin 34 pg (25-35) Mean Corpuscular Hemoglobin Concent 33 g/dL (31-37) Red Cell Distribution Width 14.5 % (11.5-14.5) Platelet Count 166 x10^3/uL (140-400) Neutrophils (%) (Auto) 85 % (31-73) Lymphocytes (%) (Auto) 4 % (24-48) Monocytes (%) (Auto) 10 % (0-9) Eosinophils (%) (Auto) 1 % (0-3) Basophils (%) (Auto) 1 % (0-3) Neutrophils # (Auto) 7.8 x10^3uL (1.8-7.7) Lymphocytes # (Auto) 0.4 x10^3/uL (1.0-4.8) Monocytes # (Auto) 0.9 x10^3/uL (0.0-1.1) Eosinophils # (Auto) 0.1 x10^3/uL (0.0-0.7) Basophils # (Auto) 0.0 x10^3/uL (0.0-0.2) Segmented Neutrophils % 85 % (35-66) Band Neutrophils % 3 % (0-9) Lymphocytes % 5 % (24-48) Monocytes % 7 % (0-10) Platelet Estimate Adequate (ADEQUATE) Sodium Level 145 mmol/L (136-145) Potassium Level 4.0 mmol/L (3.5-5.1) Chloride Level 110 mmol/L (98-107) Carbon Dioxide Level 27 mmol/L (21-32) Anion Gap 8 (6-14) Blood Urea Nitrogen 9 mg/dL (8-26) Creatinine 0.9 mg/dL (0.7-1.3) Estimated GFR (Cockcroft-Gault) 83.7 Glucose Level 78 mg/dL (70-99) Calcium Level 8.8 mg/dL (8.5-10.1) Lactic Acid Level 1.1 mmol/L (0.4-2.0) Microbiology 02/06/17 Blood Culture - Final, Complete Medications Current Medications Vancomycin HCl (Vanco Per Pharmacy) 1 each 1X ONCE MC ; Start 02/06/17 at 11:30 ; Stop 02/06/17 at 12:58; Status DC Piperacillin Sod/ Tazobactam Sod (Zosyn Per Pharmacy) 1 each PRN DAILY PRN MC SEE COMMENTS; Start 02/06/17 at 11:30 Levofloxacin/ Dextrose (Levaquin Per Pharmacy) 1 each PRN DAILY PRN MC SEE COMMENTS; Start 02/06/17 at 11:30 Sodium Chloride 1,000 ml @ 1,000 mls/hr 1X ONCE IV Last administered on 12:04; Start 02/06/17 at 11:30; Stop 02/06/17 at 12:29; Status DC Vancomycin HCl 1.5 gm/Sodium Chloride 500 ml @ 250 mls/hr 1X ONCE IV Last administered on 02/06/17 12:41; Start 02/06/17 at 12:00; Stop 02/06/17 at 13:59 ; Status DC Levofloxacin/ Dextrose 150 ml @ 100 mls/hr Q24H IV Last administered on 10:56; Start 02/06/17 at 12:00 Piperacillin Sod/ Tazobactam Sod 4.5 gm/Sodium Chloride 100 ml @ 200 mls/hr 1X ONCE IV Last administered on 02/06/17 12:04; Start 02/06/17 at 12:00; Stop 02/06/17 at 12:29; Status DC Vancomycin HCl 1 gm/Sodium Chloride 250 ml @ 250 mls/hr Q24H IV ; Start at 13:00; Status Cancel Vancomycin HCl 1 each 1X ONCE MC ; Start 02/08/17 at 07:30; Stop 02/08/17 at 07 :31 Vancomycin HCl (Vanco Per Pharmacy) 1 each PRN DAILY PRN MC . Last administered on 02/07/17 07:20; Start 02/06/17 at 13:00 Ondansetron HCl (Zofran) 4 mg PRN Q8HRS PRN IV NAUSEA/VOMITING; Start 02/06/17 at 13:15; Stop 02/07/17 at 13:14; Status DC Fentanyl Citrate (Fentanyl 2ml Vial) 50 mcg PRN Q2HR PRN IV PAIN; Start at 13:15; Stop 02/07/17 at 13:14; Status DC Sodium Chloride 1,000 ml @ 125 mls/hr Q8H IV Last administered on 02/07/17 02 :49; Start 02/06/17 at 13:02; Stop 02/07/17 at 13:01; Status DC Acetaminophen (Tylenol) 650 mg PRN Q4HRS PRN PO FEVER Last administered on 02/07 01:55; Start 02/06/17 at 13:15; Stop 02/07/17 at 13:14; Status DC Albuterol/ Ipratropium (Duoneb) 3 ml RTQID NEB ; Start 02/06/17 at 16:00; Stop 02/06/17 at 16:00; Status DC Lorazepam (Ativan) 1 mg PRN Q4HRS PRN IV ANXIETY / AGITATION; Start 02/06/17 at 13:15 Piperacillin Sod/ Tazobactam Sod 4.5 gm/Sodium Chloride 100 ml @ 200 mls/hr Q6HRS IV Last administered on 02/07/17 06:10; Start 02/06/17 at 18:00 Alprazolam (Xanax) 0.5 mg PRN Q4HRS PRN PO ANXIETY / AGITATION Last administered on 02/07/17 01:55; Start 02/06/17 at 13:45 Atorvastatin Calcium (Lipitor) 40 mg HS PO ; Start 02/06/17 at 21:00; Stop 02/06 at 21:00; Status DC Baclofen (Lioresal) 10 mg TID PO ; Start 02/06/17 at 14:00; Stop 02/06/17 at 14: 00; Status DC Carvedilol (Coreg) 6.25 mg BIDWMEALS PO ; Start 02/06/17 at 17:00; Stop at 17:00; Status DC Diltiazem HCl (Cardizem 24hr Cd) 120 mg DAILY PO ; Start 02/06/17 at 14:00; Stop 02/06/17 at 14:00; Status DC Diphenhydramine HCl (Benadryl) 50 mg PRN Q4HRS PRN PO ITCHING; Start 02/06/17 at 13:45 Docusate Sodium (Colace) 100 mg PRN BID PRN PO CONSTIPATION; Start 02/06/17 at 13:45 Famotidine (Pepcid) 20 mg BID PO Last administered on 02/07/17 08:56; Start at 21:00 Guaifenesin (Mucinex) 600 mg BID PO ; Start 02/06/17 at 14:00; Stop 02/06/17 at 14:00; Status DC Albuterol/ Ipratropium (Duoneb) 3 ml RTQID NEB Last administered on 02/07/17 11:02; Start 02/06/17 at 16:00 Metoclopramide HCl (Reglan) 5 mg TIDAC PO ; Start 02/06/17 at 14:00; Stop at 14:00; Status DC Oxybutynin Chloride (Ditropan) 5 mg BID PO Last administered on 02/07/17 08:56 ; Start 02/06/17 at 14:00 Oxycodone HCl (OxyCONTIN) 10 mg BID PO ; Start 02/06/17 at 14:00; Stop 02/06/17 at 14:00; Status DC Polyethylene Glycol (miraLAX PACKET) 17 gm PRN DAILY PRN PO CONSTIPATION; Start 02/06/17 at 13:45 Scopolamine (Transderm-Scop) 1 patch Q3DAYS TD Last administered on 02/06/17 15:37; Start 02/06/17 at 14:00 Buspirone HCl (Buspar) 15 mg TID PO ; Start 02/06/17 at 14:00; Stop 02/06/17 at 14:00; Status DC Duloxetine HCl (Cymbalta) 60 mg DAILY PO ; Start 02/06/17 at 14:00; Stop at 14:00; Status DC Lactulose 10 gm PRN DAILY PRN PO CONSTIPATION; Start 02/06/17 at 14:00 Mirtazapine (Remeron) 30 mg QHS PO Last administered on 02/06/17 20:46; Start 02/06/17 at 21:00 Ondansetron HCl (Zofran Odt) 4 mg PRN Q8HRS PRN PO NAUSEA Last administered on 02/07/17 10:57; Start 02/06/17 at 14:00 Oxycodone HCl (Roxicodone) 5 mg PRN Q6HRS PRN PO PAIN Last administered on 02/07 10:57; Start 02/06/17 at 14:00 Rivaroxaban (Xarelto) 20 mg DAILYWSUP PO Last administered on 02/06/17 15:55; Start 02/06/17 at 17:00 Chlorhexidine Gluconate (Peridex) 15 ml BID SWSP Last administered on 15:37; Start 02/06/17 at 14:30 Potassium Chloride (KCl Oral Soln) 20 meq 1X ONCE PEG Last administered on 15:37; Start 02/06/17 at 14:15; Stop 02/06/17 at 14:16; Status DC Vancomycin HCl 750 mg/Sodium Chloride 250 ml @ 250 mls/hr Q12H IV Last administered on 02/07/17 08:56; Start 02/07/17 at 08:00 Active Scripts Active Reported Cephalexin 500 Mg Capsule 1 Cap PO BID 7 Days Carvedilol 6.25 Mg Tablet 6.25 Mg PO BIDWMEALS Banophen (Diphenhydramine Hcl) 25 Mg Capsule 50 Mg PO PRN Q4HRS PRN Zosyn 4.5 Gm Pre-Mix Bag (Ojtzrmmwitjr-Zlqw-Cnjuqykw,Iso) 4.5 Gm/100 Ml Froz.piggy 4.5 Gm IV Q6HRS 4 Days Zyvox (Linezolid) 600 Mg Tablet 600 Mg PEG BID 4 Days Tylenol (Acetaminophen) 325 Mg Tablet 1 Tab PO PRN Q4HRS Reglan (Metoclopramide Hcl) 5 Mg Tablet 5 Mg PO TID Mucus ER (Guaifenesin) 600 Mg Tab.er.12h 600 Mg PO BID Famotidine 20 Mg Tablet 20 Mg PO BID Duoneb 0.5-3(2.5) Mg/3 Ml (Albuterol/Ipratropium) 3 Ml Ampul.neb 3 Ml NEB QID Xarelto (Rivaroxaban) 20 Mg Tablet 20 Mg PO DAILY Transderm-Scop (Scopolamine) 1 Each Patch.td72 1 Patch TP Q3DAYS Oxycontin (Oxycodone HCl) 10 Mg Tab.er.12h 10 Mg PO BID Oxycodone Hcl 5 Mg Capsule 1 Cap PO PRN Q6HRS PRN Oxybutynin Chloride 5 Mg Tablet 1 Tab PO BID Ondansetron Hcl 4 Mg Tablet 1 Tab PO PRN Q8HRS PRN Mirtazapine 30 Mg Tablet 1 Tab PO QHS Miralax (Polyethylene Glycol 3350) 17 Gm Powd.pack 1 Pkt PO PRN DAILY PRN Lactulose 20 Gm/30 Ml Solution 10 Gm PO PRN DAILY PRN Docusate Sodium 100 Mg Capsule 1 Cap PO PRN BID PRN Diltiazem 24HR Cd (Diltiazem Hcl) 120 Mg Cap.er.24h 120 Mg PO DAILY Cymbalta (Duloxetine Hcl) 60 Mg Capsule.dr 60 Mg PO DAILY Buspirone Hcl 15 Mg Tablet 15 Mg PO TID Baclofen 10 Mg Tablet 10 Mg PO TID Atorvastatin Calcium 40 Mg Tablet 40 Mg PO HS Alprazolam 0.5 Mg Tablet 1 Tab PO PRN Q4HRS PRN Vitals/I & O Vital Sign - Last 24 Hours 02/06/17 02/06/17 02/06/17 02/06/17 14:32 14:43 14:49 15:00 Temp 98.0 98.0 Pulse 81 Resp 16 B/P (MAP) 98/60 (73) Pulse Ox 96 100 O2 Delivery Nasal Cannula Nasal Cannula Nasal Cannula Nasal Cannula O2 Flow Rate 3.0 3.0 3.0 4.0 02/06/17 02/06/17 02/06/17 02/06/17 16:00 19:00 19:45 20:00 Temp 97.9 98.1 97.9 98.1 Pulse 72 122 Resp 18 18 B/P (MAP) 93/59 (70) 130/76 (94) Pulse Ox 100 92 O2 Delivery Nasal Cannula Nasal Cannula Nasal Cannula O2 Flow Rate 4.0 3.0 3.0 02/06/17 02/07/17 02/07/17 02/07/17 23:00 03:00 07:00 07:02 Temp 98.6 97.7 97.6 98.6 97.7 97.6 Pulse 107 109 69 Resp 18 18 18 B/P (MAP) 115/74 (88) 99/58 (72) 102/63 (76) Pulse Ox 92 93 96 94 O2 Delivery Nasal Cannula Nasal Cannula O2 Flow Rate 2.0 2.0 02/07/17 02/07/17 02/07/17 02/07/17 08:00 10:57 11:00 11:07 Temp 97.6 97.6 Pulse 80 B/P (MAP) 105/71 (82) Pulse Ox 94 88 O2 Delivery Nasal Cannula Nasal Cannula Room Air Nasal Cannula O2 Flow Rate 2.0 2.0 2.0 Intake and Output 02/06/17 02/06/17 02/07/17 15:00 23:00 07:00 Intake Total 200 ml Output Total 200 ml Balance 0 ml IVY NGUYEN III DO Feb 07, 2017 13:36
[2017-02-07 15:00] VITALS: BP 114/72
[2017-02-07] MEDS: RIVAROXABAN 10 MG TABLET. PO SCH (17:11)
[2017-02-07 19:00] VITALS: BP 117/61
[2017-02-07] MEDS: MIRTAZAPINE 15 MG TABLET PO SCH (20:06)
[2017-02-07 23:00] VITALS: BP 126/84
--- NOTE | 2017-02-07 23:43 | CONS ---
DATE OF CONSULTATION: 02/06/2017 REFERRING PHYSICIAN: Dr. Pereira REASON FOR CONSULTATION: Recurrent pneumonia. HISTORY OF PRESENT ILLNESS: This patient is a 71-year-old male with a past medical history of a cerebrovascular accident with left-sided hemiplegia and dysphasia, maintained on tube feedings via PEG tube. He is a resident at [facility] where he recently developed pneumonia and started on Zyvox and cephalexin. However, he became increasingly short of air with worsening of cough and increased oxygen requirements. Thus he has since been admitted. On arrival, white blood cell count was normal with a lactic acid of 2.8. Chest x-ray revealed a medial left lung base infiltrate. No fevers or chills reported. The patient is complaining of lower back pain. He denies upset stomach or chest discomfort. PAST MEDICAL HISTORY: History of gram-positive cocci in chains, bacteremia, unable to grow for identification and sensitivities in 10/2016. 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 PAST SURGICAL HISTORY: Left total hip replacement, right total knee replacement, tonsillectomy, right rotator cuff repair, back surgery and PEG tube placement. SOCIAL HISTORY: The patient resides in a longterm. Former smoker. History of polysubstance abuse. FAMILY HISTORY: Noncontributory. ALLERGIES: MORPHINE. REVIEW OF SYSTEMS: As per HPI, otherwise all other review of systems are negative. MEDICATIONS: Reviewed on the MAR. Include vancomycin, Zosyn, levofloxacin and Xarelto. PHYSICAL EXAMINATION: GENERAL: male, lying in bed, softly groaning. VITAL SIGNS: Temperature is 97.6, blood pressure 102/63, heart rate 69, respiratory rate 18, pulse oximetry is 94% on 2 liters nasal cannula. Weight is 137 pounds with BMI 18.6. HEENT: Normal conjunctivae. Oral mucosa is pink and dry. LUNGS: Clear to auscultation anteriorly. HEART: Normal S1, S2. ABDOMEN: Not distended. Bowel sounds are present, soft, nontender. PEG tube intact. EXTREMITIES: No gross edema or cyanosis. Left upper extremity contracture. SKIN: Without rash. He has wounds to sacral area. Refer to wound care notes for further descriptions and pictures. NEUROLOGIC: He is awake and answers simple questions appropriately and follows commands. Peripheral IV. LABORATORY DATA: Today's WBC 9.2, hemoglobin 13.0, platelet count 166,000. Electrolytes are unremarkable. Creatinine 0.9, BUN 9. Repeat lactic acid 1.1 from 2.8 on admission. Glucose was 78. Total bilirubin 0.5, AST 29, ALT 30, albumin 3.1. Blood cultures showed gram-positive cocci in clusters suggestive of Staph in 1 of 4 bottles. Urinalysis positive for wbc's, leukocyte esterase, nitrites and few bacteria. Culture pending. IMAGING: Sputum and MRSA screen pending. Chest x-ray per HPI. IMPRESSION: 1. Healthcare acquired pneumonia. 2. Gram-positive cocci in clusters, bacteremia, present on admission. 3. Urinary tract infection, present on admission. 4. Lactic acidosis, improved. 5. History of cerebrovascular accident with left-sided hemiplegia and dysphasia. 6. History of seizures. 7. History of methicillin-resistant Staphylococcus aureus. PLAN: Continue vancomycin, Zosyn and levofloxacin. We will monitor laboratory values and will await culture results. Local wound care and offload. Thank you, Dr. Pereira, for asking us to participate in this patient's care. Should you have further questions or concerns, please call. CAROLIEN DASH MD DR: SKY/aishwarya JOB#: [id number] / [id number]
[2017-02-08 03:00] VITALS: BP 129/80
[2017-02-08] MEDS: PIPERACILLIN/TAZOBACTAM 4.5 GM in IV NORMAL SALINE 100ML 100 ML IV SCH ×3 (06:03→17:52)
[2017-02-08 07:00] VITALS: BP 130/68
[2017-02-08] MEDS: IPRATRPIUM/ALBUTEROL 0.5/2.5MG 3 ML NEBU. NEB SCH ×4 (07:14→19:26)
[2017-02-08] MEDS: CHLORHEXIDINE 0.12% 15 ML MOUTHWASH. SWSP SCH ×2 (07:41→21:19)
[2017-02-08] MEDS: FAMOTIDINE 20 MG TABLET. PO SCH ×2 (07:41→21:20)
[2017-02-08] MEDS: OXYBUTYNIN CHLORIDE 5 MG TABLET PO SCH ×2 (07:41→21:19)
[2017-02-08] MEDS: oxyCODONE IR 5 MG TABLET PO PRN ×2 (07:42→17:49)
[2017-02-08] MEDS: ONDANSETRON ODT 4 MG TAB.RAPDIS. PO PRN (07:42)
[2017-02-08 07:54] LABS: CALCIUM 9.5 mg/dL (8.5-10.1); CREATININE 0.8 mg/dL (0.7-1.3); GFR 95.8; POTASSIUM 3.7 mmol/L (3.5-5.1)
[2017-02-08 07:56] LABS: BASO % 1 % (0-3); EOS % 4 % (0-3); HEMATOCRIT 38.9 % (39.0-53.0); LYMPH # 0.4 x10^3/uL (1.0-4.8); LYMPH % 7 % (24-48); MEAN CORPUSCULAR HEMOGLOBIN 34 pg (25-35); MEAN CORPUSCULAR HGB CONC 33 g/dL (31-37); MEAN CORPUSCULAR VOLUME 101 fL (79-100); MONO % 10 % (0-9); NEUT % 78 % (31-73); PLATELET COUNT 138 x10^3/uL (140-400); RED BLOOD COUNT 3.86 x10^6/uL (4.30-5.70); RED CELL DISTRIBUTION WIDTH 14.4 % (11.5-14.5)
--- NOTE | 2017-02-08 08:21 | PDOC ---
Infectious Disease Note ROS ROS GEN: Denies fevers, chills, sweats HEENT: Denies blurred vision, sore throat CV: Denies chest pain RESP: Denies shortness of air, cough GI: Denies n/v/d NEURO: Denies confusion, dizziness MSK: Denies weakness, joint pain/swelling Vital Sign Vital Signs Vital Signs Date Time Temp Pulse Resp B/P (MAP) Pulse Ox O2 Delivery O2 Flow Rate FiO2 02/08/17 07:42 98 Nasal Cannula 2.0 02/08/17 07:00 97.8 64 18 130/68 (88) 97.8 Physical Exam PHYSICAL EXAM GENERAL: NAD, Alert HEENT: PERRL, OC/OP NECK: Supple, no JVD, no LN LUNGS: Clear HEART: S1S2, no gallop, no murmur ABD: Soft, NT, no organomegaly, no rebound EXT: No edema, no cyanosis 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: Alert, oriented x 3, no focal neurologic deficit SKIN: No rash IV: ok Labs Lab Laboratory Tests Test 02/08/17 07:35 White Blood Count 6.0 x10^3/uL (4.0-11.0) Red Blood Count 3.86 x10^6/uL (4.30-5.70) Hemoglobin 13.0 g/dL (13.0-17.5) Hematocrit 38.9 % (39.0-53.0) Mean Corpuscular Volume 101 fL (79-100) Mean Corpuscular Hemoglobin 34 pg (25-35) Mean Corpuscular Hemoglobin Concent 33 g/dL (31-37) Red Cell Distribution Width 14.4 % (11.5-14.5) Platelet Count 138 x10^3/uL (140-400) Neutrophils (%) (Auto) 78 % (31-73) Lymphocytes (%) (Auto) 7 % (24-48) Monocytes (%) (Auto) 10 % (0-9) Eosinophils (%) (Auto) 4 % (0-3) Basophils (%) (Auto) 1 % (0-3) Neutrophils # (Auto) 4.7 x10^3uL (1.8-7.7) Lymphocytes # (Auto) 0.4 x10^3/uL (1.0-4.8) Monocytes # (Auto) 0.6 x10^3/uL (0.0-1.1) Eosinophils # (Auto) 0.3 x10^3/uL (0.0-0.7) Basophils # (Auto) 0.0 x10^3/uL (0.0-0.2) Sodium Level 142 mmol/L (136-145) Potassium Level 3.7 mmol/L (3.5-5.1) Chloride Level 104 mmol/L (98-107) Carbon Dioxide Level 27 mmol/L (21-32) Anion Gap 11 (6-14) Blood Urea Nitrogen 5 mg/dL (8-26) Creatinine 0.8 mg/dL (0.7-1.3) Estimated GFR (Cockcroft-Gault) 95.8 Glucose Level 73 mg/dL (70-99) Calcium Level 9.5 mg/dL (8.5-10.1) Vancomycin Level Trough 13.3 mcg/mL (10.0-20.0) Vancomycin Last Dose Date 02/07/17 Vancomycin Last Dose Time 1999 Objective Assessment HCAP (recent Zyvox and Keflex) GPC bacteremia, POA UTI, POA Lactic acidosis, better h/o CVA w/ hemiplegia and dysphagia h/o seizures h/o MRSA Plan Plan of Care Vanc, Zosyn and Levaquin f/u cultures Monitor labs Local wound care and off load Thank you [id number] CAROLINE DASH MD Feb 08, 2017 08:21
--- NOTE | 2017-02-08 08:47 | PDOC ---
Infectious Disease Note Subjective Subjective says feeling better ROS ROS GEN: Denies fevers, chills, sweats HEENT: Denies blurred vision, sore throat CV: Denies chest pain RESP: Denies shortness of air, cough GI: Denies n/v/d NEURO: Denies confusion, dizziness MSK: Denies weakness, joint pain/swelling Vital Sign Vital Signs Vital Signs Date Time Temp Pulse Resp B/P (MAP) Pulse Ox O2 Delivery O2 Flow Rate FiO2 02/08/17 07:42 98 Nasal Cannula 2.0 02/08/17 07:00 97.8 64 18 130/68 (88) 97.8 Physical Exam PHYSICAL EXAM GENERAL: NAD, Alert,, debilitated HEENT: PERRL, OC/OP NECK: Supple, no JVD, no LN LUNGS: Clear HEART: S1S2, no gallop, no murmur ABD: Soft, NT, no organomegaly, no rebound EXT: No edema, no cyanosis [employer]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, 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 , hemiplegic SKIN: No rash IV: ok Labs Lab Laboratory Tests Test 02/08/17 07:35 White Blood Count 6.0 x10^3/uL (4.0-11.0) Red Blood Count 3.86 x10^6/uL (4.30-5.70) Hemoglobin 13.0 g/dL (13.0-17.5) Hematocrit 38.9 % (39.0-53.0) Mean Corpuscular Volume 101 fL (79-100) Mean Corpuscular Hemoglobin 34 pg (25-35) Mean Corpuscular Hemoglobin Concent 33 g/dL (31-37) Red Cell Distribution Width 14.4 % (11.5-14.5) Platelet Count 138 x10^3/uL (140-400) Neutrophils (%) (Auto) 78 % (31-73) Lymphocytes (%) (Auto) 7 % (24-48) Monocytes (%) (Auto) 10 % (0-9) Eosinophils (%) (Auto) 4 % (0-3) Basophils (%) (Auto) 1 % (0-3) Neutrophils # (Auto) 4.7 x10^3uL (1.8-7.7) Lymphocytes # (Auto) 0.4 x10^3/uL (1.0-4.8) Monocytes # (Auto) 0.6 x10^3/uL (0.0-1.1) Eosinophils # (Auto) 0.3 x10^3/uL (0.0-0.7) Basophils # (Auto) 0.0 x10^3/uL (0.0-0.2) Sodium Level 142 mmol/L (136-145) Potassium Level 3.7 mmol/L (3.5-5.1) Chloride Level 104 mmol/L (98-107) Carbon Dioxide Level 27 mmol/L (21-32) Anion Gap 11 (6-14) Blood Urea Nitrogen 5 mg/dL (8-26) Creatinine 0.8 mg/dL (0.7-1.3) Estimated GFR (Cockcroft-Gault) 95.8 Glucose Level 73 mg/dL (70-99) Calcium Level 9.5 mg/dL (8.5-10.1) Vancomycin Level Trough 13.3 mcg/mL (10.0-20.0) Vancomycin Last Dose Date 02/07/17 Vancomycin Last Dose Time 1999 Micro BLOOD CULTURE Final GRAM POSITIVE COCCI IN CLUSTERS, SUGGESTIVE OF STAPH, IN 1 OF 4 BOTTLES, TWO SETS DRAWN. CALLED TO FEDERICO MERA RN ON 5S AT 6:35 ON 02/07/17 DW MT SENT TO [facility] FOR FURTHER WORKUP. Objective Assessment HCAP (recent Zyvox and Keflex) GPC bacteremia, POA 1/4 likely contaminant UTI, POA Lactic acidosis, better h/o CVA w/ hemiplegia and dysphagia h/o seizures h/o MRSA Plan Plan of Care Zosyn and d/c Vanc, Levaquin f/u cultures Monitor labs Local wound care and off load CAROLINE DASH MD Feb 08, 2017 08:47
[2017-02-08] MEDS: VANCOMYCIN PER PHARMACY MC PRN (08:52)
[2017-02-08 11:00] VITALS: BP 107/74
[2017-02-08] MEDS: ACETYLCYSTEINE 20% ORAL SOLN 600 MG/3 ML SYRINGE. PEG SCH ×2 (11:15→21:18)
[2017-02-08] MEDS: GLYCOPYRROLATE 1 MG TABLET PO SCH ×2 (11:15→21:19)
--- NOTE | 2017-02-08 13:12 | PDOC ---
PROGRESS NOTES Chief Complaint Chief Complaint Hospital/Community Acquired Pneumonia acute resp failure hypoxia with HAP Fever LActic acidosis, better GPC bacteremia, POA 1/4 likely contaminant h/o CVA w/ hemiplegia and dysphagia h/o seizures h/o MRSA plan: fu with id on zosyn now, dc vanco and levaquin as per ID cont PEG feeding add robinul and mycomust for sputum, on scopolamine patch ptot on eliquis with h/o CVA prognosis guarded History of Present Illness History of Present Illness Patient was resting. Appeared to be in NAD. Patient was coughing with sputum in the throat, not easy to cough up with h/o CVA Vitals Vitals Vital Signs Date Time Temp Pulse Resp B/P (MAP) Pulse Ox O2 Delivery O2 Flow Rate FiO2 02/08/17 12:07 Nasal Cannula 2.0 02/08/17 11:00 97.8 80 18 107/74 (85) 95 97.8 Physical Exam General: Oriented X3, Cooperative, No acute distress Heart: Regular rate, No murmurs Lungs: Other (bl coarse bs with rhonchis) Abdomen: Soft, Other (indwelling PEG) Extremities: No clubbing, No cyanosis, No edema, Normal pulses, No tenderness/ swelling Skin: No rashes, Other (2 dime sized decub R buttock) Labs LABS Laboratory Tests Test 02/08/17 07:35 White Blood Count 6.0 x10^3/uL (4.0-11.0) Red Blood Count 3.86 x10^6/uL (4.30-5.70) Hemoglobin 13.0 g/dL (13.0-17.5) Hematocrit 38.9 % (39.0-53.0) Mean Corpuscular Volume 101 fL (79-100) Mean Corpuscular Hemoglobin 34 pg (25-35) Mean Corpuscular Hemoglobin Concent 33 g/dL (31-37) Red Cell Distribution Width 14.4 % (11.5-14.5) Platelet Count 138 x10^3/uL (140-400) Neutrophils (%) (Auto) 78 % (31-73) Lymphocytes (%) (Auto) 7 % (24-48) Monocytes (%) (Auto) 10 % (0-9) Eosinophils (%) (Auto) 4 % (0-3) Basophils (%) (Auto) 1 % (0-3) Neutrophils # (Auto) 4.7 x10^3uL (1.8-7.7) Lymphocytes # (Auto) 0.4 x10^3/uL (1.0-4.8) Monocytes # (Auto) 0.6 x10^3/uL (0.0-1.1) Eosinophils # (Auto) 0.3 x10^3/uL (0.0-0.7) Basophils # (Auto) 0.0 x10^3/uL (0.0-0.2) Sodium Level 142 mmol/L (136-145) Potassium Level 3.7 mmol/L (3.5-5.1) Chloride Level 104 mmol/L (98-107) Carbon Dioxide Level 27 mmol/L (21-32) Anion Gap 11 (6-14) Blood Urea Nitrogen 5 mg/dL (8-26) Creatinine 0.8 mg/dL (0.7-1.3) Estimated GFR (Cockcroft-Gault) 95.8 Glucose Level 73 mg/dL (70-99) Calcium Level 9.5 mg/dL (8.5-10.1) Vancomycin Level Trough 13.3 mcg/mL (10.0-20.0) Vancomycin Last Dose Date 02/07/17 Vancomycin Last Dose Time 1999 Review of Systems Review of Systems no fever, chills, sob or chest pain Assessment and Plan Assessmemt and Plan Problems Medical Problems: (1) Dehydration Status: Acute (2) HCAP (healthcare-associated pneumonia) Status: Acute (3) Hypoxia Status: Acute Problems: Comment Review of Relevant I have reviewed the following items sarai (where applicable) has been applied. Labs Laboratory Tests Test 02/06/17 14:29 02/06/17 14:50 02/07/17 04:00 02/07/17 07:45 Glucose (Fingerstick) 110 mg/dL (70-99) Nasal Screen MRSA (PCR) Positive (Negative) White Blood Count 9.2 x10^3/uL (4.0-11.0) Red Blood Count 3.85 x10^6/uL (4.30-5.70) Hemoglobin 13.0 g/dL (13.0-17.5) Hematocrit 38.9 % (39.0-53.0) Mean Corpuscular Volume 101 fL (79-100) Mean Corpuscular Hemoglobin 34 pg (25-35) Mean Corpuscular Hemoglobin Concent 33 g/dL (31-37) Red Cell Distribution Width 14.5 % (11.5-14.5) Platelet Count 166 x10^3/uL (140-400) Neutrophils (%) (Auto) 85 % (31-73) Lymphocytes (%) (Auto) 4 % (24-48) Monocytes (%) (Auto) 10 % (0-9) Eosinophils (%) (Auto) 1 % (0-3) Basophils (%) (Auto) 1 % (0-3) Neutrophils # (Auto) 7.8 x10^3uL (1.8-7.7) Lymphocytes # (Auto) 0.4 x10^3/uL (1.0-4.8) Monocytes # (Auto) 0.9 x10^3/uL (0.0-1.1) Eosinophils # (Auto) 0.1 x10^3/uL (0.0-0.7) Basophils # (Auto) 0.0 x10^3/uL (0.0-0.2) Segmented Neutrophils % 85 % (35-66) Band Neutrophils % 3 % (0-9) Lymphocytes % 5 % (24-48) Monocytes % 7 % (0-10) Platelet Estimate Adequate (ADEQUATE) Sodium Level 145 mmol/L (136-145) Potassium Level 4.0 mmol/L (3.5-5.1) Chloride Level 110 mmol/L (98-107) Carbon Dioxide Level 27 mmol/L (21-32) Anion Gap 8 (6-14) Blood Urea Nitrogen 9 mg/dL (8-26) Creatinine 0.9 mg/dL (0.7-1.3) Estimated GFR (Cockcroft-Gault) 83.7 Glucose Level 78 mg/dL (70-99) Calcium Level 8.8 mg/dL (8.5-10.1) Lactic Acid Level 1.1 mmol/L (0.4-2.0) Test 02/08/17 07:35 White Blood Count 6.0 x10^3/uL (4.0-11.0) Red Blood Count 3.86 x10^6/uL (4.30-5.70) Hemoglobin 13.0 g/dL (13.0-17.5) Hematocrit 38.9 % (39.0-53.0) Mean Corpuscular Volume 101 fL (79-100) Mean Corpuscular Hemoglobin 34 pg (25-35) Mean Corpuscular Hemoglobin Concent 33 g/dL (31-37) Red Cell Distribution Width 14.4 % (11.5-14.5) Platelet Count 138 x10^3/uL (140-400) Neutrophils (%) (Auto) 78 % (31-73) Lymphocytes (%) (Auto) 7 % (24-48) Monocytes (%) (Auto) 10 % (0-9) Eosinophils (%) (Auto) 4 % (0-3) Basophils (%) (Auto) 1 % (0-3) Neutrophils # (Auto) 4.7 x10^3uL (1.8-7.7) Lymphocytes # (Auto) 0.4 x10^3/uL (1.0-4.8) Monocytes # (Auto) 0.6 x10^3/uL (0.0-1.1) Eosinophils # (Auto) 0.3 x10^3/uL (0.0-0.7) Basophils # (Auto) 0.0 x10^3/uL (0.0-0.2) Sodium Level 142 mmol/L (136-145) Potassium Level 3.7 mmol/L (3.5-5.1) Chloride Level 104 mmol/L (98-107) Carbon Dioxide Level 27 mmol/L (21-32) Anion Gap 11 (6-14) Blood Urea Nitrogen 5 mg/dL (8-26) Creatinine 0.8 mg/dL (0.7-1.3) Estimated GFR (Cockcroft-Gault) 95.8 Glucose Level 73 mg/dL (70-99) Calcium Level 9.5 mg/dL (8.5-10.1) Vancomycin Level Trough 13.3 mcg/mL (10.0-20.0) Vancomycin Last Dose Date 02/07/17 Vancomycin Last Dose Time 1999 Laboratory Tests Test 02/08/17 07:35 White Blood Count 6.0 x10^3/uL (4.0-11.0) Red Blood Count 3.86 x10^6/uL (4.30-5.70) Hemoglobin 13.0 g/dL (13.0-17.5) Hematocrit 38.9 % (39.0-53.0) Mean Corpuscular Volume 101 fL (79-100) Mean Corpuscular Hemoglobin 34 pg (25-35) Mean Corpuscular Hemoglobin Concent 33 g/dL (31-37) Red Cell Distribution Width 14.4 % (11.5-14.5) Platelet Count 138 x10^3/uL (140-400) Neutrophils (%) (Auto) 78 % (31-73) Lymphocytes (%) (Auto) 7 % (24-48) Monocytes (%) (Auto) 10 % (0-9) Eosinophils (%) (Auto) 4 % (0-3) Basophils (%) (Auto) 1 % (0-3) Neutrophils # (Auto) 4.7 x10^3uL (1.8-7.7) Lymphocytes # (Auto) 0.4 x10^3/uL (1.0-4.8) Monocytes # (Auto) 0.6 x10^3/uL (0.0-1.1) Eosinophils # (Auto) 0.3 x10^3/uL (0.0-0.7) Basophils # (Auto) 0.0 x10^3/uL (0.0-0.2) Sodium Level 142 mmol/L (136-145) Potassium Level 3.7 mmol/L (3.5-5.1) Chloride Level 104 mmol/L (98-107) Carbon Dioxide Level 27 mmol/L (21-32) Anion Gap 11 (6-14) Blood Urea Nitrogen 5 mg/dL (8-26) Creatinine 0.8 mg/dL (0.7-1.3) Estimated GFR (Cockcroft-Gault) 95.8 Glucose Level 73 mg/dL (70-99) Calcium Level 9.5 mg/dL (8.5-10.1) Vancomycin Level Trough 13.3 mcg/mL (10.0-20.0) Vancomycin Last Dose Date 02/07/17 Vancomycin Last Dose Time 1999 Microbiology 02/06/17 Blood Culture - Preliminary, Resulted NO GROWTH AFTER 1 DAY Medications Current Medications Vancomycin HCl (Vanco Per Pharmacy) 1 each 1X ONCE MC ; Start 02/06/17 at 11:30 ; Stop 02/06/17 at 12:58; Status DC Piperacillin Sod/ Tazobactam Sod (Zosyn Per Pharmacy) 1 each PRN DAILY PRN MC SEE COMMENTS; Start 02/06/17 at 11:30 Levofloxacin/ Dextrose (Levaquin Per Pharmacy) 1 each PRN DAILY PRN MC SEE COMMENTS; Start 02/06/17 at 11:30; Stop 02/08/17 at 08:53; Status DC Sodium Chloride 1,000 ml @ 1,000 mls/hr 1X ONCE IV Last administered on 12:04; Start 02/06/17 at 11:30; Stop 02/06/17 at 12:29; Status DC Vancomycin HCl 1.5 gm/Sodium Chloride 500 ml @ 250 mls/hr 1X ONCE IV Last administered on 02/06/17 12:41; Start 02/06/17 at 12:00; Stop 02/06/17 at 13:59 ; Status DC Levofloxacin/ Dextrose 150 ml @ 100 mls/hr Q24H IV Last administered on 10:56; Start 02/06/17 at 12:00; Stop 02/08/17 at 08:48; Status DC Piperacillin Sod/ Tazobactam Sod 4.5 gm/Sodium Chloride 100 ml @ 200 mls/hr 1X ONCE IV Last administered on 02/06/17 12:04; Start 02/06/17 at 12:00; Stop 02/06/17 at 12:29; Status DC Vancomycin HCl 1 gm/Sodium Chloride 250 ml @ 250 mls/hr Q24H IV ; Start at 13:00; Status Cancel Vancomycin HCl 1 each 1X ONCE MC Last administered on 02/08/17 07:30; Start 02/08/17 at 07:30; Stop 02/08/17 at 07:31; Status DC Vancomycin HCl (Vanco Per Pharmacy) 1 each PRN DAILY PRN MC . Last administered on 02/08/17 08:52; Start 02/06/17 at 13:00; Stop 02/08/17 at 08:53 ; Status DC Ondansetron HCl (Zofran) 4 mg PRN Q8HRS PRN IV NAUSEA/VOMITING; Start 02/06/17 at 13:15; Stop 02/07/17 at 13:14; Status DC Fentanyl Citrate (Fentanyl 2ml Vial) 50 mcg PRN Q2HR PRN IV PAIN; Start at 13:15; Stop 02/07/17 at 13:14; Status DC Sodium Chloride 1,000 ml @ 125 mls/hr Q8H IV Last administered on 02/07/17 02 :49; Start 02/06/17 at 13:02; Stop 02/07/17 at 13:01; Status DC Acetaminophen (Tylenol) 650 mg PRN Q4HRS PRN PO FEVER Last administered on 02/07 01:55; Start 02/06/17 at 13:15; Stop 02/07/17 at 13:14; Status DC Albuterol/ Ipratropium (Duoneb) 3 ml RTQID NEB ; Start 02/06/17 at 16:00; Stop 02/06/17 at 16:00; Status DC Lorazepam (Ativan) 1 mg PRN Q4HRS PRN IV ANXIETY / AGITATION; Start 02/06/17 at 13:15 Piperacillin Sod/ Tazobactam Sod 4.5 gm/Sodium Chloride 100 ml @ 200 mls/hr Q6HRS IV Last administered on 02/08/17 11:15; Start 02/06/17 at 18:00 Alprazolam (Xanax) 0.5 mg PRN Q4HRS PRN PO ANXIETY / AGITATION Last administered on 02/07/17 17:17; Start 02/06/17 at 13:45 Atorvastatin Calcium (Lipitor) 40 mg HS PO ; Start 02/06/17 at 21:00; Stop 02/06 at 21:00; Status DC Baclofen (Lioresal) 10 mg TID PO ; Start 02/06/17 at 14:00; Stop 02/06/17 at 14: 00; Status DC Carvedilol (Coreg) 6.25 mg BIDWMEALS PO ; Start 02/06/17 at 17:00; Stop at 17:00; Status DC Diltiazem HCl (Cardizem 24hr Cd) 120 mg DAILY PO ; Start 02/06/17 at 14:00; Stop 02/06/17 at 14:00; Status DC Diphenhydramine HCl (Benadryl) 50 mg PRN Q4HRS PRN PO ITCHING; Start 02/06/17 at 13:45 Docusate Sodium (Colace) 100 mg PRN BID PRN PO CONSTIPATION Last administered on 02/08/17 07:41; Start 02/06/17 at 13:45 Famotidine (Pepcid) 20 mg BID PO Last administered on 02/08/17 07:41; Start at 21:00 Guaifenesin (Mucinex) 600 mg BID PO ; Start 02/06/17 at 14:00; Stop 02/06/17 at 14:00; Status DC Albuterol/ Ipratropium (Duoneb) 3 ml RTQID NEB Last administered on 02/08/17 12:07; Start 02/06/17 at 16:00 Metoclopramide HCl (Reglan) 5 mg TIDAC PO ; Start 02/06/17 at 14:00; Stop at 14:00; Status DC Oxybutynin Chloride (Ditropan) 5 mg BID PO Last administered on 02/08/17 07:41 ; Start 02/06/17 at 14:00 Oxycodone HCl (OxyCONTIN) 10 mg BID PO ; Start 02/06/17 at 14:00; Stop 02/06/17 at 14:00; Status DC Polyethylene Glycol (miraLAX PACKET) 17 gm PRN DAILY PRN PO CONSTIPATION; Start 02/06/17 at 13:45 Scopolamine (Transderm-Scop) 1 patch Q3DAYS TD Last administered on 02/06/17 15:37; Start 02/06/17 at 14:00 Buspirone HCl (Buspar) 15 mg TID PO ; Start 02/06/17 at 14:00; Stop 02/06/17 at 14:00; Status DC Duloxetine HCl (Cymbalta) 60 mg DAILY PO ; Start 02/06/17 at 14:00; Stop at 14:00; Status DC Lactulose 10 gm PRN DAILY PRN PO CONSTIPATION; Start 02/06/17 at 14:00 Mirtazapine (Remeron) 30 mg QHS PO Last administered on 02/07/17 20:06; Start 02/06/17 at 21:00 Ondansetron HCl (Zofran Odt) 4 mg PRN Q8HRS PRN PO NAUSEA Last administered on 02/08/17 07:42; Start 02/06/17 at 14:00 Oxycodone HCl (Roxicodone) 5 mg PRN Q6HRS PRN PO PAIN Last administered on 02/08 07:42; Start 02/06/17 at 14:00 Rivaroxaban (Xarelto) 20 mg DAILYWSUP PO Last administered on 02/07/17 17:11; Start 02/06/17 at 17:00 Chlorhexidine Gluconate (Peridex) 15 ml BID SWSP Last administered on 07:41; Start 02/06/17 at 14:30 Potassium Chloride (KCl Oral Soln) 20 meq 1X ONCE PEG Last administered on 15:37; Start 02/06/17 at 14:15; Stop 02/06/17 at 14:16; Status DC Vancomycin HCl 750 mg/Sodium Chloride 250 ml @ 250 mls/hr Q12H IV Last administered on 02/07/17 20:05; Start 02/07/17 at 08:00; Stop 02/08/17 at 08:48 ; Status DC Glycopyrrolate (Robinul) 1 mg BID PO Last administered on 02/08/17 11:15; Start 02/08/17 at 10:00 Acetylcysteine (Mucomyst 20% Oral Solution) 600 mg BID PEG Last administered on 02/08/17 11:15; Start 02/08/17 at 10:00; Stop 02/10/17 at 09:59 Active Scripts Active Reported Cephalexin 500 Mg Capsule 1 Cap PO BID 7 Days Carvedilol 6.25 Mg Tablet 6.25 Mg PO BIDWMEALS Banophen (Diphenhydramine Hcl) 25 Mg Capsule 50 Mg PO PRN Q4HRS PRN Zosyn 4.5 Gm Pre-Mix Bag (Cwmluyeskgzv-Exhd-Gtbdbkcm,Iso) 4.5 Gm/100 Ml Froz.piggy 4.5 Gm IV Q6HRS 4 Days Zyvox (Linezolid) 600 Mg Tablet 600 Mg PEG BID 4 Days Tylenol (Acetaminophen) 325 Mg Tablet 1 Tab PO PRN Q4HRS Reglan (Metoclopramide Hcl) 5 Mg Tablet 5 Mg PO TID Mucus ER (Guaifenesin) 600 Mg Tab.er.12h 600 Mg PO BID Famotidine 20 Mg Tablet 20 Mg PO BID Duoneb 0.5-3(2.5) Mg/3 Ml (Albuterol/Ipratropium) 3 Ml Ampul.neb 3 Ml NEB QID Xarelto (Rivaroxaban) 20 Mg Tablet 20 Mg PO DAILY Transderm-Scop (Scopolamine) 1 Each Patch.td72 1 Patch TP Q3DAYS Oxycontin (Oxycodone HCl) 10 Mg Tab.er.12h 10 Mg PO BID Oxycodone Hcl 5 Mg Capsule 1 Cap PO PRN Q6HRS PRN Oxybutynin Chloride 5 Mg Tablet 1 Tab PO BID Ondansetron Hcl 4 Mg Tablet 1 Tab PO PRN Q8HRS PRN Mirtazapine 30 Mg Tablet 1 Tab PO QHS Miralax (Polyethylene Glycol 3350) 17 Gm Powd.pack 1 Pkt PO PRN DAILY PRN Lactulose 20 Gm/30 Ml Solution 10 Gm PO PRN DAILY PRN Docusate Sodium 100 Mg Capsule 1 Cap PO PRN BID PRN Diltiazem 24HR Cd (Diltiazem Hcl) 120 Mg Cap.er.24h 120 Mg PO DAILY Cymbalta (Duloxetine Hcl) 60 Mg Capsule.dr 60 Mg PO DAILY Buspirone Hcl 15 Mg Tablet 15 Mg PO TID Baclofen 10 Mg Tablet 10 Mg PO TID Atorvastatin Calcium 40 Mg Tablet 40 Mg PO HS Alprazolam 0.5 Mg Tablet 1 Tab PO PRN Q4HRS PRN Vitals/I & O Vital Sign - Last 24 Hours 02/07/17 02/07/17 02/07/17 02/07/17 15:00 15:43 17:04 19:00 Temp 97.9 97.8 97.9 97.8 Pulse 80 61 Resp 18 18 B/P (MAP) 114/72 (86) 117/61 (79) Pulse Ox 95 95 94 O2 Delivery Room Air Nasal Cannula Nasal Cannula O2 Flow Rate 2.0 2.0 02/07/17 02/07/17 02/07/17 02/08/17 19:34 20:00 23:00 03:00 Temp 97.7 97.8 97.7 97.8 Pulse 49 61 Resp 16 18 B/P (MAP) 126/84 (98) 129/80 (96) Pulse Ox 96 100 98 O2 Delivery Nasal Cannula Nasal Cannula O2 Flow Rate 2.0 2.0 02/08/17 02/08/17 02/08/17 02/08/17 07:00 07:16 07:42 08:00 Temp 97.8 97.8 Pulse 64 Resp 18 B/P (MAP) 130/68 (88) Pulse Ox 98 98 98 O2 Delivery Nasal Cannula Nasal Cannula Nasal Cannula Nasal Cannula O2 Flow Rate 2.0 2.0 2.0 2.0 02/08/17 02/08/17 02/08/17 08:32 11:00 12:07 Temp 97.8 97.8 Pulse 80 Resp 18 B/P (MAP) 107/74 (85) Pulse Ox 98 95 O2 Delivery Nasal Cannula Nasal Cannula Nasal Cannula O2 Flow Rate 2.0 2.0 2.0 Intake and Output 02/07/17 02/07/17 02/08/17 15:00 23:00 07:00 Intake Total 400 ml 100 ml Balance 400 ml 100 ml ANN ZHAO MD Feb 08, 2017 13:12
[2017-02-08] MEDS ORDERED: ONDANSETRON PF 4 MG/2 ML VIAL. IV PRN (13:15)
[2017-02-08] MEDS ORDERED: DOCUSATE SODIUM 100 MG CAPSULE. PO PRN (13:15)
[2017-02-08] MEDS ORDERED: hydrALAZINE 20 MG/ML VIAL. IVP PRN (13:15)
[2017-02-08] MEDS ORDERED: ANTI-COAG MONITOR BY PHARMACY. MC PRN (13:15)
[2017-02-08] MEDS ORDERED: ACETAMINOPHEN 325 MG TABLET. PO PRN (13:15)
[2017-02-08 15:09] VITALS: BP 115/70
[2017-02-08] MEDS: RIVAROXABAN 10 MG TABLET. PO SCH (17:49)
[2017-02-08 19:00] VITALS: BP 111/64
--- NOTE | 2017-02-08 19:23 | PDOC ---
PULMONARY PROGRESS NOTES Vitals Vital Signs Date Time Temp Pulse Resp B/P (MAP) Pulse Ox O2 Delivery O2 Flow Rate FiO2 02/08/17 18:54 95 Nasal Cannula 1.0 02/08/17 15:09 97.8 79 18 115/70 (85) 97.8 General: Alert HEENT: Other Lungs: Other (bl coarse bs with rhonchis) Cardiovascular: S1, S2 Abdomen: Soft, Non-tender Extremities: No Edema, Other Labs Laboratory Tests Test 02/07/17 04:00 02/07/17 07:45 02/08/17 07:35 White Blood Count 9.2 x10^3/uL (4.0-11.0) 6.0 x10^3/uL (4.0-11.0) Red Blood Count 3.85 x10^6/uL (4.30-5.70) 3.86 x10^6/uL (4.30-5.70) Hemoglobin 13.0 g/dL (13.0-17.5) 13.0 g/dL (13.0-17.5) Hematocrit 38.9 % (39.0-53.0) 38.9 % (39.0-53.0) Mean Corpuscular Volume 101 fL (79-100) 101 fL (79-100) Mean Corpuscular Hemoglobin 34 pg (25-35) 34 pg (25-35) Mean Corpuscular Hemoglobin Concent 33 g/dL (31-37) 33 g/dL (31-37) Red Cell Distribution Width 14.5 % (11.5-14.5) 14.4 % (11.5-14.5) Platelet Count 166 x10^3/uL (140-400) 138 x10^3/uL (140-400) Neutrophils (%) (Auto) 85 % (31-73) 78 % (31-73) Lymphocytes (%) (Auto) 4 % (24-48) 7 % (24-48) Monocytes (%) (Auto) 10 % (0-9) 10 % (0-9) Eosinophils (%) (Auto) 1 % (0-3) 4 % (0-3) Basophils (%) (Auto) 1 % (0-3) 1 % (0-3) Neutrophils # (Auto) 7.8 x10^3uL (1.8-7.7) 4.7 x10^3uL (1.8-7.7) Lymphocytes # (Auto) 0.4 x10^3/uL (1.0-4.8) 0.4 x10^3/uL (1.0-4.8) Monocytes # (Auto) 0.9 x10^3/uL (0.0-1.1) 0.6 x10^3/uL (0.0-1.1) Eosinophils # (Auto) 0.1 x10^3/uL (0.0-0.7) 0.3 x10^3/uL (0.0-0.7) Basophils # (Auto) 0.0 x10^3/uL (0.0-0.2) 0.0 x10^3/uL (0.0-0.2) Segmented Neutrophils % 85 % (35-66) Band Neutrophils % 3 % (0-9) Lymphocytes % 5 % (24-48) Monocytes % 7 % (0-10) Platelet Estimate Adequate (ADEQUATE) Sodium Level 145 mmol/L (136-145) 142 mmol/L (136-145) Potassium Level 4.0 mmol/L (3.5-5.1) 3.7 mmol/L (3.5-5.1) Chloride Level 110 mmol/L (98-107) 104 mmol/L (98-107) Carbon Dioxide Level 27 mmol/L (21-32) 27 mmol/L (21-32) Anion Gap 8 (6-14) 11 (6-14) Blood Urea Nitrogen 9 mg/dL (8-26) 5 mg/dL (8-26) Creatinine 0.9 mg/dL (0.7-1.3) 0.8 mg/dL (0.7-1.3) Estimated GFR (Cockcroft-Gault) 83.7 95.8 Glucose Level 78 mg/dL (70-99) 73 mg/dL (70-99) Calcium Level 8.8 mg/dL (8.5-10.1) 9.5 mg/dL (8.5-10.1) Lactic Acid Level 1.1 mmol/L (0.4-2.0) Vancomycin Level Trough 13.3 mcg/mL (10.0-20.0) Vancomycin Last Dose Date 02/07/17 Vancomycin Last Dose Time 1999 Laboratory Tests Test 02/08/17 07:35 White Blood Count 6.0 x10^3/uL (4.0-11.0) Red Blood Count 3.86 x10^6/uL (4.30-5.70) Hemoglobin 13.0 g/dL (13.0-17.5) Hematocrit 38.9 % (39.0-53.0) Mean Corpuscular Volume 101 fL (79-100) Mean Corpuscular Hemoglobin 34 pg (25-35) Mean Corpuscular Hemoglobin Concent 33 g/dL (31-37) Red Cell Distribution Width 14.4 % (11.5-14.5) Platelet Count 138 x10^3/uL (140-400) Neutrophils (%) (Auto) 78 % (31-73) Lymphocytes (%) (Auto) 7 % (24-48) Monocytes (%) (Auto) 10 % (0-9) Eosinophils (%) (Auto) 4 % (0-3) Basophils (%) (Auto) 1 % (0-3) Neutrophils # (Auto) 4.7 x10^3uL (1.8-7.7) Lymphocytes # (Auto) 0.4 x10^3/uL (1.0-4.8) Monocytes # (Auto) 0.6 x10^3/uL (0.0-1.1) Eosinophils # (Auto) 0.3 x10^3/uL (0.0-0.7) Basophils # (Auto) 0.0 x10^3/uL (0.0-0.2) Sodium Level 142 mmol/L (136-145) Potassium Level 3.7 mmol/L (3.5-5.1) Chloride Level 104 mmol/L (98-107) Carbon Dioxide Level 27 mmol/L (21-32) Anion Gap 11 (6-14) Blood Urea Nitrogen 5 mg/dL (8-26) Creatinine 0.8 mg/dL (0.7-1.3) Estimated GFR (Cockcroft-Gault) 95.8 Glucose Level 73 mg/dL (70-99) Calcium Level 9.5 mg/dL (8.5-10.1) Vancomycin Level Trough 13.3 mcg/mL (10.0-20.0) Vancomycin Last Dose Date 02/07/17 Vancomycin Last Dose Time 1999 Medications Active Scripts Medications Dose Route/Sig Max Daily Dose Days Date Category Cephalexin 500 Mg Capsule 1 Cap PO BID 7 10/16/16 Reported Carvedilol 6.25 Mg Tablet 6.25 Mg PO BIDWMEALS 10/16/16 Reported Banophen (Diphenhydramine Hcl) 25 Mg Capsule 50 Mg PO PRN Q4HRS PRN 10/16/16 Reported Zosyn 4.5 Gm Pre-Mix Bag (Yahfenbmbnrt-Oyrw-Tvvxlkma,Iso) 4.5 Gm/100 Ml Froz.piggy 4.5 Gm IV Q6HRS 4 09/11/16 Reported Zyvox (Linezolid) 600 Mg Tablet 600 Mg PEG BID 4 09/11/16 Reported Tylenol (Acetaminophen) 325 Mg Tablet 1 Tab PO PRN Q4HRS 09/04/16 Reported Reglan (Metoclopramide Hcl) 5 Mg Tablet 5 Mg PO TID 09/04/16 Reported Mucus ER (Guaifenesin) 600 Mg Tab.er.12h 600 Mg PO BID 09/04/16 Reported Famotidine 20 Mg Tablet 20 Mg PO BID 09/04/16 Reported Duoneb 0.5-3(2.5) Mg/3 Ml (Albuterol/Ipratropium) 3 Ml Ampul.neb 3 Ml NEB QID 09/04/16 Reported Xarelto (Rivaroxaban) 20 Mg Tablet 20 Mg PO DAILY 05/12/16 Reported Transderm-Scop (Scopolamine) 1 Each Patch.td72 1 Patch TP Q3DAYS 05/12/16 Reported Oxycontin (Oxycodone HCl) 10 Mg Tab.er.12h 10 Mg PO BID 05/12/16 Reported Oxycodone Hcl 5 Mg Capsule 1 Cap PO PRN Q6HRS PRN 05/12/16 Reported Oxybutynin Chloride 5 Mg Tablet 1 Tab PO BID 05/12/16 Reported Ondansetron Hcl 4 Mg Tablet 1 Tab PO PRN Q8HRS PRN 05/12/16 Reported Mirtazapine 30 Mg Tablet 1 Tab PO QHS 05/12/16 Reported Miralax (Polyethylene Glycol 3350) 17 Gm Powd.pack 1 Pkt PO PRN DAILY PRN 05/12/16 Reported Lactulose 20 Gm/30 Ml Solution 10 Gm PO PRN DAILY PRN 05/12/16 Reported Docusate Sodium 100 Mg Capsule 1 Cap PO PRN BID PRN 05/12/16 Reported Diltiazem 24HR Cd (Diltiazem Hcl) 120 Mg Cap.er.24h 120 Mg PO DAILY 05/12/16 Reported Cymbalta (Duloxetine Hcl) 60 Mg Capsule.dr 60 Mg PO DAILY 05/12/16 Reported Buspirone Hcl 15 Mg Tablet 15 Mg PO TID 05/12/16 Reported Baclofen 10 Mg Tablet 10 Mg PO TID 05/12/16 Reported Atorvastatin Calcium 40 Mg Tablet 40 Mg PO HS 05/12/16 Reported Alprazolam 0.5 Mg Tablet 1 Tab PO PRN Q4HRS PRN 05/12/16 Reported Impression . full consult dictated agree with current rx thanks TYRELL ADAM MD Feb 08, 2017 19:23
[2017-02-08] MEDS: MIRTAZAPINE 15 MG TABLET PO SCH (21:19)
[2017-02-08 22:48] VITALS: BP 102/63
[2017-02-09] MEDS: PIPERACILLIN/TAZOBACTAM 4.5 GM in IV NORMAL SALINE 100ML 100 ML IV SCH ×2 (00:18→05:46)
--- NOTE | 2017-02-09 01:36 | CONS ---
DATE OF CONSULTATION: 02/08/2017 ATTENDING PHYSICIAN: Dr. Pereira. DICTATING PHYSICIAN: Dr. Adam. REASON FOR CONSULTATION: The patient seen in pulmonary consultation at the request of Dr. Pereira for abnormal x-ray. HISTORY OF PRESENT ILLNESS: The patient is a 71-year-old that is known to me from previous hospitalization. He has had a previous CVA with left-sided hemiplegia, dysphagia. He has a chronic PEG tube in place, presented with increasing shortness of breath, cough, mostly nonproductive. The patient had a chest x-ray, which I personally reviewed from 02/06/2017. There was an infiltrating consolidation of left lower lobe. The left hemidiaphragm is not distinguishable. The patient has been seen in consultation by the Infectious Disease Service and is currently on coverage for gram-positive and gram-negative pneumonia with vancomycin, Zosyn and Levaquin. He also has urinary tract infection. His blood cultures were positive for cocci in clusters. The patient denies nausea, vomiting, diarrhea. PAST MEDICAL HISTORY: CVA with left-sided hemiparesis, chronic respiratory failure, history of gram-positive bacteremia, history of MRSA positive screen, seizures, atrial fibrillation, hypertension, hyperlipidemia, gastroesophageal reflux, BPH. PAST SURGICAL HISTORY: Status post left total hip replacement, tonsillectomy, rotator cuff repair, PEG tube placement. SOCIAL HISTORY: He resides at a senior living. He is a former smoker. FAMILY HISTORY: Noncontributory in this particular situation. ALLERGIES: LISTED TO MORPHINE REVIEW OF SYSTEMS: As indicated above, otherwise 10-point system was reviewed and negative. PHYSICAL EXAMINATION: GENERAL: The patient is awake, alert, following commands and is able to communicate. On examination, the patient was in no significant respiratory distress. VITAL SIGNS: Stable. O2 saturation greater than 92%, currently on 1 liter of oxygen supplementation. HEENT: Eyes, the sclerae were nonicteric. NECK: Jugular venous distention was not elevated. No lymphadenopathy. CHEST: Full expansion. LUNGS: Crackles bilaterally with no wheezes. CARDIOVASCULAR: Regular rate and rhythm with S1, S2, no S3. ABDOMEN: Soft, nontender. PEG in place. EXTREMITIES: No clubbing, cyanosis. NEUROLOGIC: The patient had left-sided hemiparesis. LABORATORY DATA: Reviewed. White count was noted to be normal. Electrolytes were noted. BUN and creatinine were normal. UA was noted. Chest x-ray as indicated above. IMPRESSION: 1. Acute on chronic respiratory failure secondary to gram-negative, possibly gram-positive pneumonia. 2. Abnormal x-ray compatible with possible aspiration. 3. Bacteremia. 4. Urinary tract infection, present upon admission. 5. Methicillin-resistant Staphylococcus aureus screen positive. 6. Lactic acidosis. 7. Left cerebrovascular accident with hemiplegia and dysphagia. 8. Status post percutaneous endoscopic gastrostomy. 9. Seizures. PLAN: 1. Continue current triple antibiotics. 2. Follow cultures. 3. Oxygen supplementation. 4. Nebulized treatments. 5. Tube feeding per PEG. 6. DVT prophylaxis. 7. GI prophylaxis. I do appreciate the privilege in sharing in the patient's care. TYRELL ADAM MD DR: [email or web address] JOB#: [id number] / [id number]
[2017-02-09] MEDS: IPRATRPIUM/ALBUTEROL 0.5/2.5MG 3 ML NEBU. NEB SCH ×2 (06:54→11:02)
[2017-02-09 07:00] VITALS: BP 109/65
--- NOTE | 2017-02-09 09:07 | PDOC ---
Infectious Disease Note Subjective Subjective says feeling better ROS ROS GEN: Denies fevers, chills, sweats HEENT: Denies blurred vision, sore throat CV: Denies chest pain RESP: Denies shortness of air, cough GI: Denies n/v/d NEURO: Denies confusion, dizziness MSK: Denies weakness, joint pain/swelling Vital Sign Vital Signs Vital Signs Date Time Temp Pulse Resp B/P (MAP) Pulse Ox O2 Delivery O2 Flow Rate FiO2 02/09/17 07:00 97.5 77 18 109/65 (80) 91 Nasal Cannula 2.0 97.5 Physical Exam PHYSICAL EXAM GENERAL: NAD, Alert HEENT: PERRL, OC/OP NECK: Supple, no JVD, no LN LUNGS: Clear HEART: S1S2, no gallop, no murmur ABD: Soft, NT, no organomegaly, no rebound EXT: No edema, no cyanosis [employer]IST: Alert, oriented x 3, no focal neurologic deficit SKIN: No rash IV: ok Labs Micro BLOOD CULTURE Final GRAM POSITIVE COCCI IN CLUSTERS, SUGGESTIVE OF STAPH, IN 1 OF 4 BOTTLES, TWO SETS DRAWN. CALLED TO FEDERICO MERA RN ON 5S AT 6:35 ON 02/07/17 DW MT SENT TO [facility] FOR FURTHER WORKUP. Objective Assessment HCAP (recent Zyvox and Keflex) GPC bacteremia, POA 1/4 likely contaminant,, coag neg staph UTI, POA Lactic acidosis, better h/o CVA w/ hemiplegia and dysphagia h/o seizures h/o MRSA Plan Plan of Care Zosyn change to po augmentin f/u cultures Monitor labs CAROLINE DASH MD Feb 09, 2017 09:07
[2017-02-09] MEDS: ACETYLCYSTEINE 20% ORAL SOLN 600 MG/3 ML SYRINGE. PEG SCH (09:30)
[2017-02-09] MEDS: GLYCOPYRROLATE 1 MG TABLET PO SCH (09:31)
[2017-02-09] MEDS: FAMOTIDINE 20 MG TABLET. PO SCH (09:31)
[2017-02-09] MEDS: OXYBUTYNIN CHLORIDE 5 MG TABLET PO SCH (09:31)
[2017-02-09] MEDS: CHLORHEXIDINE 0.12% 15 ML MOUTHWASH. SWSP SCH (09:32)
[2017-02-09] MEDS: SCOPOLAMINE 1.5MG PATCH. TD SCH (09:33)
[2017-02-09] MEDS ORDERED: GLYC1TAB PO (09:39)
[2017-02-09] MEDS ORDERED: AMOX1TAB11 PO (09:39)
[2017-02-09 10:04] LABS: BASO % 0 % (0-3); EOS % 4 % (0-3); HEMATOCRIT 36.8 % (39.0-53.0); HEMOGLOBIN 12.7 g/dL (13.0-17.5); LYMPH # 0.4 x10^3/uL (1.0-4.8); LYMPH % 7 % (24-48); MEAN CORPUSCULAR HEMOGLOBIN 34 pg (25-35); MEAN CORPUSCULAR HGB CONC 35 g/dL (31-37); MEAN CORPUSCULAR VOLUME 98 fL (79-100); MONO % 11 % (0-9); NEUT % 78 % (31-73); PLATELET COUNT 165 x10^3/uL (140-400); RED BLOOD COUNT 3.77 x10^6/uL (4.30-5.70); RED CELL DISTRIBUTION WIDTH 14.2 % (11.5-14.5)
[2017-02-09 10:15] LABS: CALCIUM 8.5 mg/dL (8.5-10.1); CREATININE 0.9 mg/dL (0.7-1.3); GFR 83.7; POTASSIUM 3.6 mmol/L (3.5-5.1)
[2017-02-09 11:00] VITALS: BP 109/61
--- NOTE | 2017-02-09 12:22 | PDOC3 ---
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 Garcia is a 71 old M, with h/o CVA with left side hemiplegia and dysphagia, with PEG, was sent from SNF for sob. was treated for HAP. pt doing better today, on NC 2l, dc with augmentin. dc time 35min General: Oriented X3, Cooperative, No acute distress Heart: Regular rate, No murmurs Lungs: Other (bl coarse bs with rhonchis) Abdomen: Soft, Other (indwelling PEG) Extremities: No clubbing, No cyanosis, No edema, Normal pulses, No tenderness/ swelling Skin: No rashes, Other (2 dime sized decub R buttock) Patient History: Patient reports no known family medical history. Problems: Disposition snf CONDITION AT DISCHARGE: Improved Diet peg Scheduled Acetaminophen (Tylenol), 1 TAB PO PRN Q4HRS, (Reported) Amoxicillin/Potassium Clav (Amox Tr-K Clv 875-125 Mg Tab), 1 TAB PO BID Atorvastatin Calcium (Atorvastatin Calcium), 40 MG PO HS, (Reported) Baclofen (Baclofen), 10 MG PO TID, (Reported) Buspirone Hcl (Buspirone Hcl), 15 MG PO TID, (Reported) Carvedilol (Carvedilol), 6.25 MG PO BIDWMEALS, (Reported) Diltiazem Hcl (Diltiazem 24HR Cd), 120 MG PO DAILY, (Reported) Duloxetine Hcl (Cymbalta), 60 MG PO DAILY, (Reported) Famotidine (Famotidine), 20 MG PO BID, (Reported) Glycopyrrolate (Glycopyrrolate), 1 MG PO BID Guaifenesin (Mucus ER), 600 MG PO BID, (Reported) Ipratropium/Albuterol Sulfate (Duoneb 0.5-3(2.5) Mg/3 Ml), 3 ML NEB QID, ( Reported) Metoclopramide Hcl (Reglan), 5 MG PO TID, (Reported) Mirtazapine (Mirtazapine), 1 TAB PO QHS, (Reported) Oxybutynin Chloride (Oxybutynin Chloride), 1 TAB PO BID, (Reported) Oxycodone Hcl (Oxycontin), 10 MG PO BID, (Reported) Rivaroxaban (Xarelto), 20 MG PO DAILY, (Reported) Scopolamine (Transderm-Scop), 1 PATCH TP Q3DAYS, (Reported) Scheduled PRN Alprazolam (Alprazolam), 1 TAB PO PRN Q4HRS PRN for ANXIETY / AGITATION, ( Reported) Diphenhydramine Hcl (Banophen), 50 MG PO PRN Q4HRS PRN for ITCHING, (Reported) Docusate Sodium (Docusate Sodium), 1 CAP PO PRN BID PRN for CONSTIPATION, ( Reported) Lactulose (Lactulose), 10 GM PO PRN DAILY PRN for CONSTIPATION, (Reported) Ondansetron Hcl (Ondansetron Hcl), 1 TAB PO PRN Q8HRS PRN for NAUSEA, (Reported) Oxycodone Hcl (Oxycodone Hcl), 1 CAP PO PRN Q6HRS PRN for PAIN, (Reported) Polyethylene Glycol 3350 (Miralax), 1 PKT PO PRN DAILY PRN for CONSTIPATION, ( Reported) Discontinued Medications Cephalexin (Cephalexin), 1 CAP PO BID, (Reported) Linezolid (Zyvox), 600 MG PEG BID, (Reported) Nyismbcdzqxe-Hxnn-Mjcxjnpy,Iso (Zosyn 4.5 Gm Pre-Mix Bag), 4.5 GM IV Q6HRS, ( Reported) Follow Up pcp in 2 weeks ANN ZHAO MD Feb 09, 2017 12:22
--- NOTE | 2017-02-09 13:11 | PDOC ---
PULMONARY PROGRESS NOTES Vitals Vital Signs Date Time Temp Pulse Resp B/P (MAP) Pulse Ox O2 Delivery O2 Flow Rate FiO2 02/09/17 11:07 Nasal Cannula 2.0 02/09/17 11:00 97.9 61 18 109/61 (77) 97 97.9 General: Alert HEENT: Other Lungs: Other (bl coarse bs with rhonchis) Cardiovascular: S1, S2 Abdomen: Soft, Non-tender Extremities: No Edema, Other Labs Laboratory Tests Test 02/08/17 07:35 02/09/17 09:05 White Blood Count 6.0 x10^3/uL (4.0-11.0) 5.0 x10^3/uL (4.0-11.0) Red Blood Count 3.86 x10^6/uL (4.30-5.70) 3.77 x10^6/uL (4.30-5.70) Hemoglobin 13.0 g/dL (13.0-17.5) 12.7 g/dL (13.0-17.5) Hematocrit 38.9 % (39.0-53.0) 36.8 % (39.0-53.0) Mean Corpuscular Volume 101 fL (79-100) 98 fL (79-100) Mean Corpuscular Hemoglobin 34 pg (25-35) 34 pg (25-35) Mean Corpuscular Hemoglobin Concent 33 g/dL (31-37) 35 g/dL (31-37) Red Cell Distribution Width 14.4 % (11.5-14.5) 14.2 % (11.5-14.5) Platelet Count 138 x10^3/uL (140-400) 165 x10^3/uL (140-400) Neutrophils (%) (Auto) 78 % (31-73) 78 % (31-73) Lymphocytes (%) (Auto) 7 % (24-48) 7 % (24-48) Monocytes (%) (Auto) 10 % (0-9) 11 % (0-9) Eosinophils (%) (Auto) 4 % (0-3) 4 % (0-3) Basophils (%) (Auto) 1 % (0-3) 0 % (0-3) Neutrophils # (Auto) 4.7 x10^3uL (1.8-7.7) 3.9 x10^3uL (1.8-7.7) Lymphocytes # (Auto) 0.4 x10^3/uL (1.0-4.8) 0.4 x10^3/uL (1.0-4.8) Monocytes # (Auto) 0.6 x10^3/uL (0.0-1.1) 0.5 x10^3/uL (0.0-1.1) Eosinophils # (Auto) 0.3 x10^3/uL (0.0-0.7) 0.2 x10^3/uL (0.0-0.7) Basophils # (Auto) 0.0 x10^3/uL (0.0-0.2) 0.0 x10^3/uL (0.0-0.2) Sodium Level 142 mmol/L (136-145) 144 mmol/L (136-145) Potassium Level 3.7 mmol/L (3.5-5.1) 3.6 mmol/L (3.5-5.1) Chloride Level 104 mmol/L (98-107) 106 mmol/L (98-107) Carbon Dioxide Level 27 mmol/L (21-32) 32 mmol/L (21-32) Anion Gap 11 (6-14) 6 (6-14) Blood Urea Nitrogen 5 mg/dL (8-26) 10 mg/dL (8-26) Creatinine 0.8 mg/dL (0.7-1.3) 0.9 mg/dL (0.7-1.3) Estimated GFR (Cockcroft-Gault) 95.8 83.7 Glucose Level 73 mg/dL (70-99) 109 mg/dL (70-99) Calcium Level 9.5 mg/dL (8.5-10.1) 8.5 mg/dL (8.5-10.1) Vancomycin Level Trough 13.3 mcg/mL (10.0-20.0) Vancomycin Last Dose Date 02/07/17 Vancomycin Last Dose Time 1999 Laboratory Tests Test 02/09/17 09:05 White Blood Count 5.0 x10^3/uL (4.0-11.0) Red Blood Count 3.77 x10^6/uL (4.30-5.70) Hemoglobin 12.7 g/dL (13.0-17.5) Hematocrit 36.8 % (39.0-53.0) Mean Corpuscular Volume 98 fL (79-100) Mean Corpuscular Hemoglobin 34 pg (25-35) Mean Corpuscular Hemoglobin Concent 35 g/dL (31-37) Red Cell Distribution Width 14.2 % (11.5-14.5) Platelet Count 165 x10^3/uL (140-400) Neutrophils (%) (Auto) 78 % (31-73) Lymphocytes (%) (Auto) 7 % (24-48) Monocytes (%) (Auto) 11 % (0-9) Eosinophils (%) (Auto) 4 % (0-3) Basophils (%) (Auto) 0 % (0-3) Neutrophils # (Auto) 3.9 x10^3uL (1.8-7.7) Lymphocytes # (Auto) 0.4 x10^3/uL (1.0-4.8) Monocytes # (Auto) 0.5 x10^3/uL (0.0-1.1) Eosinophils # (Auto) 0.2 x10^3/uL (0.0-0.7) Basophils # (Auto) 0.0 x10^3/uL (0.0-0.2) Sodium Level 144 mmol/L (136-145) Potassium Level 3.6 mmol/L (3.5-5.1) Chloride Level 106 mmol/L (98-107) Carbon Dioxide Level 32 mmol/L (21-32) Anion Gap 6 (6-14) Blood Urea Nitrogen 10 mg/dL (8-26) Creatinine 0.9 mg/dL (0.7-1.3) Estimated GFR (Cockcroft-Gault) 83.7 Glucose Level 109 mg/dL (70-99) Calcium Level 8.5 mg/dL (8.5-10.1) Medications Active Scripts Medications Dose Route/Sig Max Daily Dose Days Date Category Cephalexin 500 Mg Capsule 1 Cap PO BID 7 10/16/16 Reported Carvedilol 6.25 Mg Tablet 6.25 Mg PO BIDWMEALS 10/16/16 Reported Banophen (Diphenhydramine Hcl) 25 Mg Capsule 50 Mg PO PRN Q4HRS PRN 10/16/16 Reported Zosyn 4.5 Gm Pre-Mix Bag (Oycjpsagthqy-Yhsi-Lyjwhdkt,Iso) 4.5 Gm/100 Ml Froz.piggy 4.5 Gm IV Q6HRS 4 09/11/16 Reported Zyvox (Linezolid) 600 Mg Tablet 600 Mg PEG BID 4 09/11/16 Reported Tylenol (Acetaminophen) 325 Mg Tablet 1 Tab PO PRN Q4HRS 09/04/16 Reported Reglan (Metoclopramide Hcl) 5 Mg Tablet 5 Mg PO TID 09/04/16 Reported Mucus ER (Guaifenesin) 600 Mg Tab.er.12h 600 Mg PO BID 09/04/16 Reported Famotidine 20 Mg Tablet 20 Mg PO BID 09/04/16 Reported Duoneb 0.5-3(2.5) Mg/3 Ml (Albuterol/Ipratropium) 3 Ml Ampul.neb 3 Ml NEB QID 09/04/16 Reported Xarelto (Rivaroxaban) 20 Mg Tablet 20 Mg PO DAILY 05/12/16 Reported Transderm-Scop (Scopolamine) 1 Each Patch.td72 1 Patch TP Q3DAYS 05/12/16 Reported Oxycontin (Oxycodone HCl) 10 Mg Tab.er.12h 10 Mg PO BID 05/12/16 Reported Oxycodone Hcl 5 Mg Capsule 1 Cap PO PRN Q6HRS PRN 05/12/16 Reported Oxybutynin Chloride 5 Mg Tablet 1 Tab PO BID 05/12/16 Reported Ondansetron Hcl 4 Mg Tablet 1 Tab PO PRN Q8HRS PRN 05/12/16 Reported Mirtazapine 30 Mg Tablet 1 Tab PO QHS 05/12/16 Reported Miralax (Polyethylene Glycol 3350) 17 Gm Powd.pack 1 Pkt PO PRN DAILY PRN 05/12/16 Reported Lactulose 20 Gm/30 Ml Solution 10 Gm PO PRN DAILY PRN 05/12/16 Reported Docusate Sodium 100 Mg Capsule 1 Cap PO PRN BID PRN 05/12/16 Reported Diltiazem 24HR Cd (Diltiazem Hcl) 120 Mg Cap.er.24h 120 Mg PO DAILY 05/12/16 Reported Cymbalta (Duloxetine Hcl) 60 Mg Capsule.dr 60 Mg PO DAILY 05/12/16 Reported Buspirone Hcl 15 Mg Tablet 15 Mg PO TID 05/12/16 Reported Baclofen 10 Mg Tablet 10 Mg PO TID 05/12/16 Reported Atorvastatin Calcium 40 Mg Tablet 40 Mg PO HS 05/12/16 Reported Alprazolam 0.5 Mg Tablet 1 Tab PO PRN Q4HRS PRN 05/12/16 Reported Impression . full consult dictated agree with current rx thanks TYRELL ADAM MD Feb 09, 2017 13:11
[2017-02-09] MEDS ORDERED: AMOXICILLIN/K CLAV 875/125MG TABLET. PO SCH (21:00)
== END 2017-02-09 15:03 | DRG 189 ==
LOC: ER 10:57 → 5 SOUTH 12:17
PROVIDERS: ADMIT Internal Medicine; ATTEND Internal Medicine
DX: J96.21 Acute and chronic respiratory failure with hypoxia (principal); J18.9 Pneumonia, unspecified organism; J44.0 Chronic obstructive pulmonary disease with (acute) lower respiratory infection; N39.0 Urinary tract infection, site not specified; E87.2 Acidosis; R65.10 Systemic inflammatory response syndrome (SIRS) of non-infectious origin without acute organ dysfunction; E44.0 Moderate protein-calorie malnutrition; R78.81 Bacteremia; I69.354 Hemiplegia and hemiparesis following cerebral infarction affecting left non-dominant side; E78.00 Pure hypercholesterolemia, unspecified; E78.5 Hyperlipidemia, unspecified; E86.0 Dehydration; E87.6 Hypokalemia; I11.0 Hypertensive heart disease with heart failure; I48.91 Unspecified atrial fibrillation; I50.9 Heart failure, unspecified; K21.9 Gastro-esophageal reflux disease without esophagitis; N40.0 Benign prostatic hyperplasia without lower urinary tract symptoms; R13.10 Dysphagia, unspecified; R47.02 Dysphasia; Z96.642 Presence of left artificial hip joint; Z96.651 Presence of right artificial knee joint; R56.9 Unspecified convulsions; B95.62 Methicillin resistant Staphylococcus aureus infection as the cause of diseases classified elsewhere; F32.9 Major depressive disorder, single episode, unspecified; J44.9 Chronic obstructive pulmonary disease, unspecified; F41.9 Anxiety disorder, unspecified; K59.00 Constipation, unspecified; M54.5 Low back pain; R13.19 Other dysphagia; I95.9 Hypotension, unspecified; Y95 Nosocomial condition; Z74.01 Bed confinement status; Z82.49 Family history of ischemic heart disease and other diseases of the circulatory system; Z86.14 Personal history of Methicillin resistant Staphylococcus aureus infection; Z87.01 Personal history of pneumonia (recurrent); Z87.891 Personal history of nicotine dependence; Z93.1 Gastrostomy status; Z99.3 Dependence on wheelchair; Z68.28 Body mass index [BMI] 28.0-28.9, adult; Z88.5 Allergy status to narcotic agent
CPT/HCPCS: 36415; 71010; 80048; 80053; 80202; 81001; 82962; 83605; 85007; 85027; 87040; 87086; 87205; 87641; 93005; 94250; 94640; 94760; 96365; 96367; J1956; J2543; J3370; J7030; J7040; J7050; J7620; Q0162; 99285-25